=== PATIENT | male | born 1955 | race Caucasian/White ===

== ENCOUNTER 2018-07-09 21:16 | Emergency (ER) | payer MEDICARE ==
[2018-07-09] MEDS ORDERED: NA CHLORIDE 0.9% 1,000 ML ONE (22:09)
[2018-07-09] MEDS ORDERED: ALBUTEROL 2.5 MG/3 ML NEB SOL ONE (22:09)
[2018-07-09] MEDS ORDERED: SOD POLYSTYREN SUL 15 GM/60 ML UCUP ONE (22:09)
[2018-07-09 22:16] LABS: Urine Blood NEGATIVE (NEG); Urine Glucose TRACE (NEG); Urine Protein NEGATIVE (NEG); Urine Specific Gravity <1.005 (1.005-1.030); Urine pH 5.5 (5.0-7.0)
[2018-07-09 22:25] LABS: Absolute Lymphocytes (CBC) 1.5 K/uL (0.7-4.9); Absolute Monocytes 0.5 K/uL (0.1-1.3); Absolute Neutrophil 2.5 K/uL (1.8-8.0); Basophils % 0.5 % (0-1.3); Eosinophils % 4.3 % (0-4.4); Hematocrit 37.2 % (39.6-49.0); Lymphocytes % 31.4 % (15.3-44.8); MCH 32.9 pg (27.0-35.0); MPV 8.8 fL (7.6-11.3); Monocytes % 10.3 % (3.3-12.3); RBC Red Blood Cell Count 3.84 M/uL (4.33-5.43)
[2018-07-09 22:43] LABS: Protime INR 0.92
[2018-07-09 22:59] LABS: ALT/SGPT 19 U/L (12-78); AST/SGOT 18 U/L (15-37); Albumin 3.5 g/dL (3.4-5.0); Alkaline Phosphatase 53 U/L (45-117); BUN Blood Urea Nitrogen 13 mg/dL (7-18); Bicarbonate 23 mmol/L (21-32); Bilirubin Direct 0.2 mg/dL (0-0.2); Bilirubin Total 0.4 mg/dL (0.2-1.0); Glucose Level 136 mg/dL (74-106); Lipase 148 U/L (73-393); Magnesium 1.5 mg/dL (1.8-2.4); NT PRO-BNP 156 pg/mL (<125); Potassium 4.1 mmol/L (3.5-5.1); Protein, Total 7.2 g/dL (6.4-8.2); Sodium Level 136 mmol/L (136-145); Troponin (Emerg Dept Use Only) < 0.02 ng/mL (0.0-0.045)
--- NOTE | 2018-07-09 23:13 | EDPHYS ---
Physician Documentation [facility] Name: Yousuf Braxton Age: 62 yrs Sex: Male : 1955 Arrival Date: 07/09/2018 Time: 21:25 Bed 24 Private MD: ED Physician Romulo Aguilar HPI: 07/09 22:03 This 62 yrs old Male presents to ER via EMS with complaints of Elevated justice potassium. 22:03 told potassium was high. Onset: The symptoms/episode began/occurred just prior to [facility] arrival. Severity of symptoms: At their worst the symptoms were mild in the emergency department the symptoms are unchanged. The patient has not experienced similar symptoms in the past. Historical: - Allergies: : Codeine; kr2 - PMHx: : CAD; Diabetes - NIDDM; Hypertension; Myocardial infarction; Pancreatitis; kr2 - PSHx: : R ankle; heart stent x 3; Angioplasty; kr2 - Immunization history:: Adult Immunizations unknown. - Social history:: Smoking status: Patient/guardian denies using tobacco, Patient uses alcohol. - Ebola Screening: : No symptoms or risks identified at this time. - Family history:: not pertinent. ROS: 22:03 Constitutional: Negative for fever, chills, and weight loss, Eyes: Negative for injury, justice pain, redness, and discharge, ENT: Negative for injury, pain, and discharge, Neck: Negative for injury, pain, and swelling, Cardiovascular: Negative for chest pain, palpitations, and edema, Respiratory: Negative for shortness of breath, cough, wheezing, and pleuritic chest pain, Abdomen/GI: Negative for abdominal pain, nausea, vomiting, diarrhea, and constipation, Back: Negative for injury and pain, : Negative for injury, bleeding, discharge, and swelling, MS/Extremity: Negative for injury and deformity, Skin: Negative for injury, rash, and discoloration, Neuro: Negative for headache, weakness, numbness, tingling, and seizure, Psych: Negative for depression, anxiety, suicide ideation, homicidal ideation, and hallucinations, Allergy/Immunology: Negative for hives, rash, and allergies, Endocrine: Negative for neck swelling, polydipsia, polyuria, polyphagia, and marked weight changes, Hematologic/Lymphatic: Negative for swollen nodes, abnormal bleeding, and unusual bruising. Exam: 22:03 Constitutional: This is a well developed, well nourished patient who is awake, alert, justice and in no acute distress. Head/Face: Normocephalic, atraumatic. Eyes: Pupils equal round and reactive to light, extra-ocular motions intact. Lids and lashes normal. Conjunctiva and sclera are non-icteric and not injected. Cornea within normal limits. Periorbital areas with no swelling, redness, or edema. ENT: Nares patent. No nasal discharge, no septal abnormalities noted. Tympanic membranes are normal and external auditory canals are clear. Oropharynx with no redness, swelling, or masses, exudates, or evidence of obstruction, uvula midline. Mucous membranes moist. Neck: Trachea midline, no thyromegaly or masses palpated, and no cervical lymphadenopathy. Supple, full range of motion without nuchal rigidity, or vertebral point tenderness. No Meningismus. Chest/axilla: Normal chest wall appearance and motion. Nontender with no deformity. No lesions are appreciated. Cardiovascular: Regular rate and rhythm with a normal S1 and S2. No gallops, murmurs, or rubs. Normal PMI, no JVD. No pulse deficits. Respiratory: Lungs have equal breath sounds bilaterally, clear to auscultation and percussion. No rales, rhonchi or wheezes noted. No increased work of breathing, no retractions or nasal flaring. Abdomen/GI: Soft, non-tender, with normal bowel sounds. No distension or tympany. No guarding or rebound. No evidence of tenderness throughout. Back: No spinal tenderness. No costovertebral tenderness. Full range of motion. Male : Normal genitalia with no discharge or lesions. Skin: Warm, dry with normal turgor. Normal color with no rashes, no lesions, and no evidence of cellulitis. Vital Signs: 21:32 BP 137 / 72; Pulse 82; Resp 16; Temp 98.9; Pulse Ox 97% on R/A; Weight 90.72 kg; Height kr2 5 ft. 7 in. (170.18 cm); Pain 0/10; 23:19 BP 155 / 80; Pulse 71; Resp 17; Pulse Ox 96% on R/A; kr2 21:32 Body Mass Index 31.32 (90.72 kg, 170.18 cm) kr2 MDM: 21:45 Patient medically screened. [facility] 22:03 Data reviewed: vital signs, nurses notes, EMS record, lab test result(s), EKG, [facility] radiologic studies, plain films. 07/09 21:48 Order name: Basic Metabolic Panel; Complete Time: 23:[address] [facility] 07/09 21:48 Order name: CBC with Diff; Complete Time: 23:[address] [facility] 07/09 21:48 Order name: LFT's; Complete Time: 23:[address] [facility] 07/09 21:48 Order name: Magnesium; Complete Time: 23:[address] [facility] 07/09 21:48 Order name: NT PRO-BNP; Complete Time: 23:[address] [facility] 07/09 21:48 Order name: PT-INR; Complete Time: 23:[address] [facility] 07/09 21:48 Order name: Troponin (emerg Dept Use Only); Complete Time: 23:[address] [facility] 07/09 21:48 Order name: XRAY Chest (1 view) [facility] 07/09 21:48 Order name: Lipase; Complete Time: 23:[address] [facility] 07/09 22:12 Order name: Urine Dipstick--Ancillary (enter results); Complete Time: 23:11 [facility] 07/09 21:48 Order name: EKG; Complete Time: 21:[address] [facility] 07/09 21:48 Order name: Cardiac monitoring; Complete Time: 21:[address] [facility] 07/09 21:48 Order name: EKG - Nurse/Tech; Complete Time: 21:[address] [facility] 07/09 21:48 Order name: IV Saline Lock; Complete Time: 21:[address] [facility] 07/09 21:48 Order name: Labs collected and sent; Complete Time: 21:[address] [facility] 07/09 21:48 Order name: O2 Per Protocol; Complete Time: 21:[address] [facility] 07/09 21:48 Order name: O2 Sat Monitoring; Complete Time: 21:[address] [facility] Administered Medications: Discontinued: NS 0.9% 1000 ml IV at 125 ml/hr continuous 22:24 Drug: NS 0.9% 500 ml Route: IV; Rate: bolus; Site: right forearm; kr2 23:00 Follow up: Response: No adverse reaction; IV Status: Completed infusion kr2 22:24 Not Given (Patient Refused): Albuterol 5 mg Inhalation once kr2 23:12 Drug: NS 0.9% 1000 ml Route: IV; Rate: 125 ml/hr; Site: right forearm; kr2 07/10 00:26 Follow up: Response: No adverse reaction; IV Status: Order to discontinue infusion kr2 07/09 23:19 Drug: Magnesium Sulfate 1 grams Route: IVPB; Infused Over: 1 hrs; Site: right forearm; kr2 07/10 00:25 Follow up: Response: No adverse reaction; IV Status: Completed infusion kr2 07/09 23:55 Drug: morphine 4 mg Route: IVP; Site: right forearm; kr2 07/10 00:25 Follow up: Response: No adverse reaction; Pain is decreased kr2 07/09 23:55 Drug: Zofran 4 mg Route: IVP; Site: right forearm; kr2 07/10 00:25 Follow up: Response: No adverse reaction kr2 00:09 Not Given (Potassium level 4.1): Kayexalate 30 grams PO once kr2 Disposition: 07/09/18 23:12 Discharged to Home. Impression: Hypomagnesemia. - Condition is Stable. - Discharge Instructions: Hypomagnesemia. - Medication Reconciliation Form, Thank You Letter, Antibiotic Education, Prescription Opioid Use form. - Follow up: Private Physician; When: 2 - 3 days; Reason: Recheck today's complaints, Continuance of care, Re-evaluation by your physician. - Problem is new. - Symptoms have improved. Signatures: Dispatcher [employer] EDMS Romulo Aguilar MD MD cha Reaves, Karey, RN RN kr2 Corrections: (The following items were deleted from the chart) 00:29 07/09 23:12 07/09/2018 23:12 Discharged to Home. Impression: Hypomagnesemia. Condition kr2 is Stable. Forms are Medication Reconciliation Form, Thank You Letter, Antibiotic Education, Prescription Opioid Use. Follow up: Private Physician; When: 2 - 3 days; Reason: Recheck today's complaints, Continuance of care, Re-evaluation by your physician. Problem is new. Symptoms have improved. justice
--- NOTE | 2018-07-09 23:13 | ER ---
Nurse's Notes [facility] Name: Yousuf Braxton Age: 62 yrs Sex: Male : 1955 Arrival Date: 07/09/2018 Time: 21:25 Bed 24 Private MD: Diagnosis: Hypomagnesemia Presentation: 07/09 21:25 Presenting complaint: EMS states: [facility] potassium of 6.7, kr2 physician is Dr. Harris. He reports he had 6 beers today. Blood glucose 193. Transition of care: patient was not received from another setting of care. Onset of symptoms was July 09, 2018. Risk Assessment: Do you want to hurt yourself or someone else? Patient reports no desire to harm self or others. Initial Sepsis Screen: Does the patient meet any 2 criteria? No. Patient's initial sepsis screen is negative. Does the patient have a suspected source of infection? No. Patient's initial sepsis screen is negative. Care prior to arrival: IV initiated. 20 GA, in the right forearm. 21:25 Method Of Arrival: EMS: [facility] kr2 21:25 Acuity: JORDY 3 kr2 Triage Assessment: 21:32 General: Appears in no apparent distress. comfortable, Behavior is calm, cooperative, kr2 appropriate for age. Pain: Denies pain. Historical: - Allergies: 21:31 Codeine; kr2 - PMHx: 21:31 CAD; Diabetes - NIDDM; Hypertension; Myocardial infarction; Pancreatitis; kr2 - PSHx: 21:31 R ankle; heart stent x 3; Angioplasty; kr2 - Immunization history:: Adult Immunizations unknown. - Social history:: Smoking status: Patient/guardian denies using tobacco, Patient uses alcohol. - Ebola Screening: : No symptoms or risks identified at this time. - Family history:: not pertinent. Screenin:33 Abuse screen: Denies threats or abuse. Denies injuries from another. Nutritional kr2 screening: No deficits noted. Tuberculosis screening: No symptoms or risk factors identified. Fall Risk None identified. Assessment: 21:25 General: Appears in no apparent distress. comfortable, Behavior is calm, cooperative. kr2 Pain: Denies pain. Neuro: Level of Consciousness is awake, alert, obeys commands, Oriented to person, place, time, situation. Cardiovascular: Heart tones S1 S2 Patient's skin is warm and dry. Rhythm is sinus rhythm. Respiratory: Airway is patent Respiratory effort is even, unlabored, Respiratory pattern is regular, symmetrical. GI: Abdomen is flat, non-distended. : Urine is clear. EENT: Oral mucosa is moist. Derm: Skin is intact, is healthy with good turgor, Skin is pink, warm \T\ dry. Musculoskeletal: Circulation, motion, and sensation intact. Vital Signs: 21:32 BP 137 / 72; Pulse 82; Resp 16; Temp 98.9; Pulse Ox 97% on R/A; Weight 90.72 kg; Height kr2 5 ft. 7 in. (170.18 cm); Pain 0/10; 23:19 BP 155 / 80; Pulse 71; Resp 17; Pulse Ox 96% on R/A; kr2 21:32 Body Mass Index 31.32 (90.72 kg, 170.18 cm) kr2 ED Course: 21:25 Patient arrived in ED. kr2 21:25 Maintain EMS IV. Dressing intact. Good blood return noted. Site clean \T\ dry. Gauge \T\ kr 2 site: 20g right forearm. 21:27 Triage completed. kr2 21:33 Patient has correct armband on for positive identification. Bed in low position. Call kr2 light in reach. Side rails up X 1. churn drill operator on. Pulse ox on. NIBP on. Door closed. Warm blanket given. Head of bed elevated. 21:34 Arm band placed on. kr2 21:42 EKG done, by ED staff, reviewed by Romulo Aguilar MD. kr2 21:45 Romulo Aguilar MD is Attending Physician. [facility] 21:59 X-ray completed. Portable x-ray completed in exam room. Patient tolerated procedure ls3 well. 22:00 XRAY Chest (1 view) In Process Unspecified. EDMS 07/10 00:01 Christiane Romero, MUMTAZ is Primary Nurse. kr2 00:15 No provider procedures requiring assistance completed. IV discontinued, intact, kr2 bleeding controlled, No redness/swelling at site. Pressure dressing applied. Administered Medications: Discontinued: NS 0.9% 1000 ml IV at 125 ml/hr continuous 07/09 22:24 Drug: NS 0.9% 500 ml Route: IV; Rate: bolus; Site: right forearm; kr2 23:00 Follow up: Response: No adverse reaction; IV Status: Completed infusion kr2 22:24 Not Given (Patient Refused): Albuterol 5 mg Inhalation once kr2 23:12 Drug: NS 0.9% 1000 ml Route: IV; Rate: 125 ml/hr; Site: right forearm; kr2 07/10 00:26 Follow up: Response: No adverse reaction; IV Status: Order to discontinue infusion kr2 07/09 23:19 Drug: Magnesium Sulfate 1 grams Route: IVPB; Infused Over: 1 hrs; Site: right forearm; kr2 07/10 00:25 Follow up: Response: No adverse reaction; IV Status: Completed infusion kr2 07/09 23:55 Drug: morphine 4 mg Route: IVP; Site: right forearm; kr2 07/10 00:25 Follow up: Response: No adverse reaction; Pain is decreased kr2 07/09 23:55 Drug: Zofran 4 mg Route: IVP; Site: right forearm; kr2 07/10 00:25 Follow up: Response: No adverse reaction kr2 00:09 Not Given (Potassium level 4.1): Kayexalate 30 grams PO once kr2 Outcome: 07/09 23:12 Discharge ordered by . justice 10 00:15 Discharged to home ambulatory, with family. kr2 Condition: good Discharge instructions given to patient, Instructed on discharge instructions, follow up and referral plans. Demonstrated understanding of instructions, follow-up care. 00:29 Patient left the ED. kr2 Signatures: Dispatcher [employer] Romulo Luna MD MD cha Reaves, Karey, RN RN kr2 Peterson Harman ls3 Corrections: (The following items were deleted from the chart) 00:03 00:02 Response: No adverse reaction; IV Status: Completed infusion kr2 kr2
[2018-07-09] MEDS ORDERED: MAGNESIUM SULFATE 1 gm IVPB 1 GM/100 ML BAG IV ONE (23:20)
[2018-07-09] MEDS ORDERED: ONDANSETRON 4 MG/2 ML VIAL ONE (23:59)
[2018-07-09] MEDS ORDERED: MORPHINE 4 MG/ML SYR ONE (23:59)
[2018-07-10 00:33] VITALS: TEMP 98.9
[2018-07-10 00:34] VITALS: BP 155/80; O2SAT 96
--- NOTE | 2018-07-10 07:30 | RAD REPORT ---
EXAM DESCRIPTION: RAD - Chest Single View - 07/09/2018 10:00 pm CLINICAL HISTORY: Cough, hyperkalemia COMPARISON: September 2017 TECHNIQUE: AP portable chest image was obtained 2156 hours . FINDINGS: Lung volumes are low compared to the prior study. Interstitial markings are not substantia lly different when adjusting for differences in inspiration. No peripheral mass or consolidation. No significant failure, volume overload or pulmonary edema pattern. Heart and vasculature are normal. No measurable pleural effusion and no pneumothorax. No acute bony abnormality seen. No acute aortic fin dings suspected. IMPRESSION: Shallow inspiration film without acute cardiopulmonary finding. No significant change from comparison.
--- NOTE | 2018-07-10 08:13 | EKG ---
Test Date: 2018-07-09 Test Time: 21:37:48 Jewel Stringer: ALEXEI MEASUREMENT RESULTS: Intervals: Rate: 76 [place]: 140 QRSD: 98 QT: 364 QTc: 409 [place]: P: 67 [place]: 140 QRS: -17 T: 12 INTERPRETIVE STATEMENTS: Normal sinus rhythm Incomplete right bundle branch block Borderline ECG Compared to ECG 10/28/2017 11:18:03 Incomplete right bundle-branch block now present Left-axis deviation no longer present Electronically Signed On 07-10-18 08:12:09 CDT by Anibal Carver
== END 2018-07-10 00:29 | disposition home or self-care (01) ==
LOC: ER 21:16
DX: E83.42 Hypomagnesemia (principal); I10 Essential (primary) hypertension; I25.2 Old myocardial infarction; Z88.5 Allergy status to narcotic agent; Z95.818 Presence of other cardiac implants and grafts
CPT/HCPCS: 36415; 71045; 80048; 80076; 81003; 83690; 83735; 83880; 84484; 85025; 85610; 93005; 96361; 96365; 96375; 99284; J2405; J3475; J7030

== ENCOUNTER 2019-07-08 05:37 | Observation (INO) | payer MEDICARE ==
[2019-07-08 06:09] LABS: Absolute Lymphocytes (CBC) 0.7 K/uL (0.7-4.9); Basophils % 0.2 % (0-1.3); Hematocrit 38.9 % (39.6-49.0); Lymphocytes % 12.3 % (15.3-44.8); MPV 9.3 fL (7.6-11.3); RBC Red Blood Cell Count 3.98 M/uL (4.33-5.43)
[2019-07-08 06:21] LABS: Protime INR 0.87
[2019-07-08 06:29] LABS: ALT/SGPT 24 U/L (12-78); AST/SGOT 17 U/L (15-37); Albumin 3.7 g/dL (3.4-5.0); Alkaline Phosphatase 74 U/L (45-117); BUN Blood Urea Nitrogen 18 mg/dL (7-18); Bicarbonate 25 mmol/L (21-32); Bilirubin Total 0.5 mg/dL (0.2-1.0); Glucose Level 344 mg/dL (74-106); Lipase 175 U/L (73-393); Potassium 4.7 mmol/L (3.5-5.1); Protein, Total 7.6 g/dL (6.4-8.2); Sodium Level 140 mmol/L (136-145); Troponin (Emerg Dept Use Only) < 0.02 ng/mL (0.0-0.045)
--- NOTE | 2019-07-08 06:39 | ER ---
Nurse's Notes [facility] Name: Yousuf Braxton Age: 63 yrs Sex: Male : 1955 Arrival Date: 07/08/2019 Time: 05:41 Bed 17 Private MD: Diagnosis: Chest pain Presentation: 07/08 05:44 Presenting complaint: Patient states: he woke up from sleep with midsternal CP approx 2 aa1 hrs GREY WASHER. Reports hx of pancreatitis and states this pain feels similar. EMS gave ASA 81mg x 2 and Fentanyl 50mcg IVP x 2 GREY WASHER and pt reports pain has now resolved. Transition of care: patient was not received from another setting of care. Onset of symptoms was July 08, 2019. Risk Assessment: Do you want to hurt yourself or someone else? Patient reports no desire to harm self or others. Initial Sepsis Screen: Does the patient meet any 2 criteria? HR > 90 bpm. Does the patient have a suspected source of infection? No. Patient's initial sepsis screen is negative. Care prior to arrival: Medication(s) given: ASA, 81 mg, x 2, Fentanyl 100 msg IVP IV initiated. 20 GA, in the right forearm, Glucose check: 342. 05:44 Method Of Arrival: EMS: [facility] aa1 05:44 Acuity: JORDY 2 aa1 Historical: - Allergies: 05:47 Codeine; aa1 - Home Meds: 05:55 glipizide 10 mg Oral tab 2 times per day [Active]; simvastatin 40 mg Oral tab 1 tab aa1 once daily [Active]; atorvastatin 80 mg oral tab 1 tab once daily [Active]; lisinopril 5 mg Oral tab 1 tab once daily [Active]; omeprazole 20 mg Oral cpDR 1 cap 2 times per day [Active]; cyanocobalamin (vitamin B-12) 1,000 mcg oral tab daily [Active]; ranolazine oral oral 1 tab 2 times per day [Active]; metoprolol tartrate 50 mg Oral tab 1 tab 2 times per day [Active]; - PMHx: 05:47 CAD; Diabetes - NIDDM; Hypertension; Myocardial infarction; Pancreatitis; High aa1 Cholesterol; - PSHx: 05:47 R ankle; Angioplasty; heart stent x 3; aa1 - Immunization history:: Flu vaccine is up to date. - Social history:: Smoking status: Patient/guardian denies using tobacco. - Ebola Screening: : No symptoms or risks identified at this time. Screenin:48 Abuse screen: Denies threats or abuse. Denies injuries from another. Nutritional aa1 screening: No deficits noted. Tuberculosis screening: No symptoms or risk factors identified. Fall Risk IV access (20 points). Assessment: 05:48 General: Appears in no apparent distress. comfortable, Behavior is calm, cooperative, aa1 appropriate for age. Pain: Complains of pain in mid-sternal area Pain currently is 3 out of 10 on a pain scale. Pain began 2 hours ago. Neuro: Level of Consciousness is awake, alert, obeys commands, Oriented to person, place, time, situation, Moves all extremities. Speech is normal. Cardiovascular: Reports chest pain, Denies diaphoresis, lightheadedness, nausea, palpitations, shortness of breath, Heart tones S1 S2 present Capillary refill < 3 seconds Clubbing of nail beds is absent JVD is absent Rhythm is regular Chest pain is described as mild, quality is pressure, is located in substernal area began 2 hours prior to arrival episodes are continuous. Respiratory: Airway is patent Respiratory effort is even, unlabored, Respiratory pattern is regular, symmetrical. GI: No signs and/or symptoms were reported involving the gastrointestinal system. : No signs and/or symptoms were reported regarding the genitourinary system. EENT: No signs and/or symptoms were reported regarding the EENT system. Derm: Skin is intact, is healthy with good turgor, Skin is pink, warm \T\ dry. Musculoskeletal: Circulation, motion, and sensation intact. Capillary refill < 3 seconds. 06:52 Reassessment: Patient appears in no apparent distress at this time. Patient and/or aa1 family updated on plan of care and expected duration. Pain level reassessed. Patient is alert, oriented x 3, equal unlabored respirations, skin warm/dry/pink. Pt to be admitted; resting quietly. 08:01 Reassessment: repeat labs sent. ss 08:05 Reassessment: Dr. Carver at bedside to assess the patient. Patient denies pain at this ss time, respirations remain even and unlabored. Awaiting room assignment from pet house sitter. Vital Signs: 05:47 BP 128 / 72; Pulse 107; Resp 20; Temp 97.8; Pulse Ox 95% on R/A; Weight 88.45 kg; aa1 Height 5 ft. 7 in. (170.18 cm); Pain 3/10; 06:52 BP 109 / 75; Pulse 101; Resp 16; Pulse Ox 93% on R/A; Pain 0/10; aa1 05:47 Body Mass Index 30.54 (88.45 kg, 170.18 cm) aa1 ED Course: 05:41 Patient arrived in ED. ds1 05:44 Rohan Vazquez MD is Attending Physician. ps1 05:46 Triage completed. aa1 05:47 Arm band placed on right wrist. Patient placed in an exam room, on a stretcher. EKG aa1 completed in triage. Results shown to MD. 05:48 Patient has correct armband on for positive identification. Placed in gown. Bed in low aa1 position. Call light in reach. assembler liquid center on. Pulse ox on. NIBP on. 05:48 Initial lab(s) drawn, by ED staff, sent to lab. EKG done, by ED staff, reviewed by aa1 Rohan Vazquez MD. Maintain EMS IV. Dressing intact. Good blood return noted. Site clean \T\ dry. Gauge \T\ site: 20g R forearm. 06:09 CXR XRAY In Process Unspecified. EDMS 06:38 Virginia Romero MD is Hospitalizing Provider. ps1 06:59 Cyril Hendrickson is Primary Nurse. wh 08:20 EKG done, by network technician. at1 08:30 No provider procedures requiring assistance completed. Patient admitted, IV remains in place. 08:34 Primary Nurse role handed off by Cyril Hendrickson 08:34 Pat Nguyen, RN is Primary Nurse. Administered Medications: No medications were administered Outcome: 06:38 Decision to Hospitalize by Provider. ps1 08:50 Admitted to Med/surg accompanied by tech, via wheelchair, with chart. ch 08:50 Condition: stable 08:50 Instructed on the need for admit. 08:58 Patient left the ED. Signatures: Dispatcher [employer] EDMT Pat Nguyen, MUMTAZ RN Linda Mendez RN RN aa1 Yi Benjamin ds1 Maci Dixon RN RN Leti Werner, robotics systems engineer EKG Tat1 Cyril Hendrickson Phillip, MD MD ps1
--- NOTE | 2019-07-08 06:39 | EDPHYS ---
Physician Documentation [facility] Name: Yousuf Braxton Age: 63 yrs Sex: Male : 1955 Arrival Date: 07/08/2019 Time: 05:41 Bed 17 Private MD: ED Physician Rohan Vazquez HPI: 07/08 05:44 This 63 yrs old Male presents to ER via Unassigned with complaints of chest ps1 pain. 05:44 patient states that he had chest pain that woke him from sleeping. States that he is ps1 diabetic, htn, CAD post stent. Pain localized substernal with radiation to back. Pain is now gone s/p 100mcg fentanyl per EMS. Not associated with NV or diaphoresis. Thinks it may be pancreatitis 2/2 pain that is similar. Not a drinker, recently started trulicity. Historical: - Allergies: 05:47 Codeine; aa1 - Home Meds: 05:55 glipizide 10 mg Oral tab 2 times per day [Active]; simvastatin 40 mg Oral tab 1 tab aa1 once daily [Active]; atorvastatin 80 mg oral tab 1 tab once daily [Active]; lisinopril 5 mg Oral tab 1 tab once daily [Active]; omeprazole 20 mg Oral cpDR 1 cap 2 times per day [Active]; cyanocobalamin (vitamin B-12) 1,000 mcg oral tab daily [Active]; ranolazine oral oral 1 tab 2 times per day [Active]; metoprolol tartrate 50 mg Oral tab 1 tab 2 times per day [Active]; - PMHx: 05:47 CAD; Diabetes - NIDDM; Hypertension; Myocardial infarction; Pancreatitis; High aa1 Cholesterol; - PSHx: 05:47 R ankle; Angioplasty; heart stent x 3; aa1 - Immunization history:: Flu vaccine is up to date. - Social history:: Smoking status: Patient/guardian denies using tobacco. - Ebola Screening: : No symptoms or risks identified at this time. ROS: 05:44 Constitutional: Negative for fever, chills, and weight loss, Eyes: Negative for injury, ps1 pain, redness, and discharge, Respiratory: Negative for shortness of breath, cough, wheezing, and pleuritic chest pain, Abdomen/GI: Negative for abdominal pain, nausea, vomiting, diarrhea, and constipation, MS/Extremity: Negative for injury and deformity, Skin: Negative for injury, rash, and discoloration, Neuro: Negative for headache, weakness, numbness, tingling, and seizure. 05:44 Cardiovascular: Positive for chest pain. Exam: 05:44 Constitutional: This is a well developed, well nourished patient who is awake, alert, ps1 and in no acute distress. Head/Face: Normocephalic, atraumatic. Eyes: Pupils equal round and reactive to light, extra-ocular motions intact. Lids and lashes normal. Conjunctiva and sclera are non-icteric and not injected. ENT: Nares patent. No nasal discharge, no septal abnormalities noted. Tympanic membranes are normal and external auditory canals are clear. Oropharynx with no redness, swelling, or masses, exudates, or evidence of obstruction, uvula midline. Mucous membranes moist. Chest/axilla: Normal chest wall appearance and motion. Nontender with no deformity. No lesions are appreciated. Cardiovascular: Regular rate and rhythm. No gallops, murmurs, or rubs. Normal PMI, no JVD. No pulse deficits. Respiratory: Lungs have equal breath sounds bilaterally, clear to auscultation and percussion. No rales, rhonchi or wheezes noted. No increased work of breathing, no retractions or nasal flaring. Abdomen/GI: Soft, non-tender, with normal bowel sounds. No distension or tympany. No guarding or rebound. No evidence of tenderness throughout. Skin: Warm, dry with normal turgor. Normal color with no rashes, no lesions, and no evidence of cellulitis. MS/ Extremity: Pulses equal, no cyanosis. Neurovascular intact. Full, normal range of motion. Neuro: Awake and alert, GCS 15, oriented to person, place, time, and situation. Cranial nerves II-XII grossly intact. Sensory grossly intact. Vital Signs: 05:47 BP 128 / 72; Pulse 107; Resp 20; Temp 97.8; Pulse Ox 95% on R/A; Weight 88.45 kg; aa1 Height 5 ft. 7 in. (170.18 cm); Pain 3/10; 06:52 BP 109 / 75; Pulse 101; Resp 16; Pulse Ox 93% on R/A; Pain 0/10; aa1 05:47 Body Mass Index 30.54 (88.45 kg, 170.18 cm) aa MDM: 05:50 Patient medically screened. ps1 06:38 HEART Score: History: Slightly Suspicious (0), ECG: Non specific repolarization ps1 disturbance / LBTB / PM (1), Age: > 45 and < 65 years (1), Risk Factors: > or = 3 Risk factors for atherosclerotic disease (2), [Hypercholesterolemia] [Hypertension] [DM] [Obesity] Troponin: < or = 1 x Normal Limit (0), Total Score = 4. Data reviewed: vital signs, nurses notes, old medical records, lab test result(s), EKG, radiologic studies, and as a result, I will admit patient. 07/08 05:49 Order name: CBC with Diff; Complete Time: 06:35 ps1 07/08 05:49 Order name: CMP; Complete Time: 06:35 ps1 07/08 05:49 Order name: Troponin (emerg Dept Use Only); Complete Time: 06:35 ps1 07/08 05:49 Order name: Lipase; Complete Time: 06:35 ps1 07/08 05:49 Order name: PT-INR; Complete Time: 06:38 ps1 07/08 05:49 Order name: DD; Complete Time: 06:38 ps1 07/08 05:49 Order name: CXR XRAY [facility] 07/08 05:58 Order name: EKG; Complete Time: 05:58 aa1 07/08 07:03 Order name: Echo with Doppler [facility] 07/08 07:03 Order name: Lipid Profile [facility] 07/08 07:03 Order name: Lipid Profile [facility] 07/08 07:03 Order name: Troponin I [facility] 07/08 07:03 Order name: Troponin I [facility] 07/08 07:03 Order name: Troponin I [facility] 07/08 05:58 Order name: EKG - Nurse/Tech; Complete Time: 05:58 aa 07/08 07:03 Order name: CONS Physician Consult [facility] 07/08 07:03 Order name: Heart Healthy [facility] 07/08 07:03 Order name: EKG Electrocardiogram [facility] 07/08 07:03 Order name: EKG Electrocardiogram EDOR EC:47 Rate is 106 beats/min. Rhythm is regular. QRS [place] is Normal. [place] interval is normal. ps1 QRS interval is normal. QT interval is normal. No Q waves. T waves are Normal. No ST changes noted. Clinical impression: incomplete RBBB. Nonspecific ST wave abnormality. Not changed from previous a year ago. Administered Medications: No medications were administered Disposition: 07/08/19 06:38 Hospitalization ordered by Virginia Romero for Observation. Preliminary diagnosis is Chest pain. - Bed requested for Telemetry/MedSurg (observation). - Status is Observation. ch - Condition is Stable. - Problem is new. - Symptoms are unchanged. UTI on Admission? No Signatures: Dispatcher [employer] EDMS Pat Nguyen, RN RN ch Linda Mendez RN RN aa1 Rohan Vazquez MD MD ps1 Nicole Guerin Corrections: (The following items were deleted from the chart) 08:16 06:38 Hospitalization Ordered by Virginia Romero MD for Observation. Preliminary gm diagnosis is Chest pain. Bed requested for Telemetry/MedSurg (observation). Status is Observation. Condition is Stable. Problem is new. Symptoms are unchanged. UTI on Admission? No. ps1 08:58 08:16 07/08/2019 06:38 Hospitalization Ordered by Virginia Romero MD for Observation. Preliminary diagnosis is Chest pain. Bed requested for Telemetry/MedSurg (observation). Status is Observation. Condition is Stable. Problem is new. Symptoms are unchanged. UTI on Admission? No. gm
[2019-07-08] MEDS ORDERED: ACETAMINOPHEN 500 MG TAB PO PRN (06:59)
[2019-07-08] MEDS ORDERED: ALPRAZOLAM 0.25 MG TABLET PO PRN (06:59)
--- NOTE | 2019-07-08 07:58 | RAD REPORT ---
EXAM DESCRIPTION: RAD - Chest Single View - 07/08/2019 6:10 am CLINICAL HISTORY: CHEST PAIN Chest pain. COMPARISON: Chest Single View dated 07/09/2018; CHEST SINGLE VIEW dated 12/23/2011; CHEST SINGLE VIEW dated 12/11/2010; CHEST SINGLE VIEW dated 10/26/2009 FINDINGS: Portable technique limits examination quality. The lungs are grossly clear. The heart is mildly prominent in size. No displaced fractures. IMPRESSION: No acute intrathoracic process suspected.
[2019-07-08] MEDS ORDERED: NITROGLYCERIN 0.4 MG/TAB SL PRN (08:13)
[2019-07-08] MEDS ORDERED: METOPROLOL TAR 50 MG TAB PO SCH (09:00)
[2019-07-08] MEDS ORDERED: ENOXAPARIN 40 MG/0.4 ML SQ SCH (09:00)
[2019-07-08 09:14] VITALS: BMI 29.6
[2019-07-08] MEDS: CLOPIDOGREL 75 MG TABLET PO SCH (09:25)
[2019-07-08] MEDS: ASPIRIN EC 81 MG TAB PO SCH (09:26)
[2019-07-08] MEDS: MORPHINE 4 MG/ML SYR IV PRN ×3 (09:26→20:14)
--- NOTE | 2019-07-08 09:41 | P.HP ---
Certification for Inpatient Patient admitted to: Observation With expected LOS: <2 Midnights Patient will require the following post-hospital care: None Practitioner: I am a practitioner with admitting privileges, knowledge of patient current condition, hospital course, and medical plan of care. Services: Services provided to patient in accordance with Admission requirements found in Title 42 Section 412.3 of the Code of Federal Regulations Patient History Date of Service: 07/08/19 Reason for admission: CHEST PAIN RULE OUT ACUTE CORONARY SYNDROME History of Present Illness: PATIENT IS A 63-YEAR-OLD GENTLEMAN WHO CAME TO THE HOSPITAL WITH CHEST DISCOMFORT. PAIN WAS IN THE STERNAL REGION. PATIENT WAS EVALUATED IN THE ER AND GIVEN PAIN MEDICATION. PATIENT'S SYMPTOMS HAVE PRETTY MUCH RESOLVED. I REVIEWED PATIENT'S CHARTING HE HAD A CARDIAC CATHETERIZATION IN SEPTEMBER OF 2017. PATIENT HAD A HISTORY OF 2 PRIOR STENTS AND THESE WERE IN PLACE AND NOT THROMBOSED. PATIENT HAS SEVERE CORONARY ARTERY DISEASE. HE DID NOT MEET CRITERIA FOR ANY SURGICAL INTERVENTION. PATIENT WAS MEDICALLY MANAGED. HE HAS BEEN ON RANEXA FOR HIS ANGINA. HOWEVER, HE DID HAVE RECURRING CHEST PAIN. INITIALLY HE FELT LIKE IT WAS RELATED TO PANCREATITIS BUT HIS LIPASE IS NORMAL. HE HAS NOT HAD ANY EPIGASTRIC TENDERNESS ON EXAM. PATIENT WILL BE ADMITTED TO THE HOSPITAL TO BE RULED OUT FOR ACUTE CORONARY SYNDROME. WILL GET CARDIOLOGY CONSULTATION. ANTICIPATE DISCHARGE HOME LATER THIS EVENING OR IN THE MORNING. Allergies codeine [Codeine] Allergy (Verified 10/03/17 09:34) Hives/Rash - Past Medical/Surgical History -: CORONARY ARTERY DISEASE -: TYPE 2 DIABETES -: HYPERTENSION -: CARDIAC CATHETERIZATION WITH A HISTORY OF 2 PRIOR STENTS PLACED - Social History Smoking Status: Former smoker Alcohol use: No CD- Drugs: No Review of Systems 10-point ROS is otherwise unremarkable Physical Examination - Vital Signs Temperature: 97.0 F Blood Pressure: 136/71 Pulse: 96 Respirations: 16 Pulse Ox (%): 96 - Physical Exam General: Alert, In no apparent distress, Oriented x3 HEENT: Atraumatic, PERRLA, Mucous membr. moist/pink, EOMI, Sclerae nonicteric Neck: Supple, 2+ carotid pulse no bruit, No LAD, Without JVD or thyroid abnormality Respiratory: Clear to auscultation bilaterally, Normal air movement Cardiovascular: Regular rate/rhythm, Normal S1 S2 Gastrointestinal: Normal bowel sounds, Soft and benign, Non-distended, No tenderness Musculoskeletal: No clubbing, No swelling, No tenderness Integumentary: No rashes Neurological: Normal gait, Normal speech, Normal strength at 5/5 x4 extr, Normal tone, Sensation intact, Cranial nerves 3-12 intact, Normal affect Lymphatics: No axilla or inguinal lymphadenopathy - Studies Laboratory Data (last 24 hrs) 07/08/19 05:48: PT 10.3, INR 0.87 07/08/19 05:48: Sodium 140, Potassium 4.7, BUN 18, Creatinine 1.44 H, Glucose 344 H, Total Bilirubin 0.5, AST 17, ALT 24, Alkaline Phosphatase 74, Lipase 175 07/08/19 05:48: WBC 5.8, Hgb 13.5 L, Hct 38.9 L, Plt Count 174 Assessment & Plan - Problems (Diagnosis) (1) Chest pain, rule out acute myocardial infarction Current Visit: Yes Status: Acute (2) Coronary artery disease Current Visit: Yes Status: Acute (3) History of intravascular stent placement Current Visit: Yes Status: Acute (4) Type 2 diabetes mellitus Current Visit: Yes Status: Acute (5) History of hypertension Current Visit: Yes Status: Acute - Plan 1. SERIAL TROPONINS AND EKG 2. CARDIOLOGY CONSULTATION 3. ECHOCARDIOGRAM 4. ANTI-PLATELET THERAPY, ANTI COAGULATION, BETA-JUDITH, STATIN, RANEXA AND MAY NEED TO ADD ISOSORBIDE LONG PATIENT DOES NOT BECOME HYPOTENSIVE 5. IV MORPHINE FOR PAIN 6. NITRO P.R.N. Discharge Plan: Home Plan to discharge in: Greater than 2 days - Advance Directives Does patient have a Living Will: No Does patient have a Durable POA for Healthcare: No - Code Status/Comfort Care Code Status Assessed: Yes Code Status: Full Code Critical Care: No Time Spent Managing PTS Care (In Minutes): 45
--- NOTE | 2019-07-08 11:36 | EKG ---
Test Date: 2019-07-08 Test Time: 08:01:15 Process Manager: TAISHA MEASUREMENT RESULTS: Intervals: Rate: 97 CO: 152 QRSD: 90 QT: 346 QTc: 439 [place]: P: 64 CO: 152 QRS: -34 T: 22 INTERPRETIVE STATEMENTS: Normal sinus rhythm Left axis deviation Nonspecific ST abnormality Abnormal ECG Compared to ECG 07/09/2018 21:37:48 Left-axis deviation now present ST (T wave) deviation now present Incomplete right bundle-branch block no longer present Electronically Signed On 07-08-19 11:35:53 CDT by Anibal Carver
--- NOTE | 2019-07-08 11:37 | EKG ---
Test Date: 2019-07-08 Test Time: 05:45:51 Car Audio Installer: MEASUREMENT RESULTS: Intervals: Rate: 106 AK: 142 QRSD: 94 QT: 332 QTc: 441 [place]: P: 66 AK: 142 QRS: -33 T: 25 INTERPRETIVE STATEMENTS: Sinus tachycardia Left axis deviation Incomplete right bundle branch block Nonspecific ST and T wave abnormality Abnormal ECG Compared to ECG 07/09/2018 21:37:48 Left-axis deviation now present ST (T wave) deviation now present Sinus rhythm no longer present Electronically Signed On 07-08-19 11:36:16 CDT by Anibal Carver
[2019-07-08] MEDS ORDERED: D50W 25 GM/50 ML SYRINGE IV PRN (11:38)
[2019-07-08] MEDS ORDERED: GLUCAGON 1 MG/VIAL IM PRN (11:38)
--- NOTE | 2019-07-08 12:08 | CON ---
History Of Present Illness: Mr. Braxton is 63. He is known to have inoperable CAD. He has had 2 sten ts. He last had a catheterization roughly a year ago and found that all of his target vessels are 1 mm in diameter or less and he would be unable to go through bypass surgery or other stents or treatin g it medically. This morning, he awakened with chest pain. He took several of his usual medications in addition, seemed to go away when he was in the ambulance ride to the hospital. We do not have a report of what he received by the ambulance. He does not say they sprayed anything under his tongue. Home Medicines: Glipizide, simvastatin, atorvastatin probably a mistake, lisinopril, omeprazole, cya nocobalamin, ranolazine 1000 b.i.d., metoprolol 50 b.i.d., and he is supposed to have nitroglycerin, but did not use nitroglycerin. Physical Examination: General: He is obese, alert, oriented, pleasant, not in distress. Vital Signs: Blood pressure 128/72, pulse 80. HEENT: Normal. Lungs: Clear. Heart: Within normal limits. EKG; nonspecific ST abnormality. The troponin level is less than 0.02. Impression: Mr. Braxton had angina. He is not a candidate for we could expect of cardiac cath to do a ny good, so we need to increase the amount of beta blockers, make sure he has oral nitrates use on a p.r.n. basis, observe him overnight, and if he has no more angina, he could be discharged home tomorr ow. CINDA Voice ID: [id number] Report ID: [id number]
[2019-07-08] MEDS: INSULIN -REGULAR HUMAN 50 UNIT/0.5 ML ML SQ SCH ×3 (12:11→20:12)
[2019-07-08 12:31] LABS: Urine Appearance CLEAR; Urine Bilirubin NEGATIVE (NEG); Urine Blood NEGATIVE (NEG); Urine Color YELLOW; Urine Glucose 3+ (NEG); Urine Protein NEGATIVE (NEG); Urine Specific Gravity >=1.030 (1.005-1.030)
[2019-07-08 12:32] LABS: Urine Microscopic Reflex NO UMIC
--- NOTE | 2019-07-08 16:33 | ECHO ---
HEIGHT: 5 ft 7 in WEIGHT: 189 lb 4.8 oz DATE OF STUDY: 07/08/[address]: Virginia Romero MD 2-DIMENSIONAL: YES M.MODE: YES DOPPLER: YES COLOR FLOW: YES TDS: PORTABLE: DEFINITY: BUBBLE STUDY: DIAGNOSIS: CHEST PAIN/ HISTORY OF CAD CARDIAC HISTORY: CATHERIZATION: NO SURGERY: NO PROSTHETIC VALVE: NO PACEMAKER: NO MEASUREMENTS (cm) DIASTOLIC (NORMALS) SYSTOLIC (NORMALS) IVSd 1.2 (0.6-1.2) LA Diam 3.8 (1.9-4.0) LVEF 60% LVIDd 3.7 (3.5-5.7) LVIDs 2.6 (2.0-3.5) %FS 31% LVPWd 1.2 (0.6-1.2) Ao Diam 2.9 (2.0-3.7) 2 DIMENSIONAL ASSESSMENT: RIGHT ATRIUM: NORMAL LEFT ATRIUM: NORMAL RIGHT VENTRICLE: NORMAL LEFT VENTRICLE: NORMAL TRICUSPID VALVE: NORMAL MITRAL VALVE: NORMAL PULMONIC VALVE: NORMAL AORTIC VALVE: NORMAL PERICARDIAL EFFUSION: NONE AORTIC ROOT: NORMAL LEFT VENTRICULAR WALL MOTION: NORMAL DOPPLER/COLOR FLOW: NORMAL COMMENTS: NORMAL TWO DIMENSIONAL ECHOCARDIOGRAM WITH DOPPLER. TECHNOLOGIST: BASIL MUNOZ
[2019-07-08] MEDS: METOPROLOL XL 50 MG TAB PO SCH (17:06)
[2019-07-08 23:50] VITALS: O2SAT 93
[2019-07-09] MEDS ORDERED: LORATADINE 10 MG TAB PO ONE
[2019-07-09] MEDS: MORPHINE 4 MG/ML SYR IV PRN ×3 (00:05→08:52)
[2019-07-09] MEDS: METOPROLOL XL 50 MG TAB PO SCH (05:24)
[2019-07-09 06:42] LABS: Absolute Lymphocytes (CBC) 0.8 K/uL (0.7-4.9); Basophils % 0.3 % (0-1.3); Hematocrit 36.9 % (39.6-49.0); Lymphocytes % 10.8 % (15.3-44.8); MPV 9.5 fL (7.6-11.3); RBC Red Blood Cell Count 3.79 M/uL (4.33-5.43)
[2019-07-09 06:55] LABS: Magnesium 1.7 mg/dL (1.8-2.4); Phosphorus 2.2 mg/dL (2.5-4.9); Potassium 4.5 mmol/L (3.5-5.1); Troponin I 0.16 ng/mL (0.0-0.045)
[2019-07-09] MEDS ORDERED: predniSONE 20 MG TAB PO ONE (08:00)
[2019-07-09] MEDS: INSULIN -REGULAR HUMAN 50 UNIT/0.5 ML ML SQ SCH (08:44)
[2019-07-09 08:48] VITALS: BP 136/71; TEMP 97.2
[2019-07-09] MEDS: CLOPIDOGREL 75 MG TABLET PO SCH (08:48)
[2019-07-09] MEDS: ASPIRIN EC 81 MG TAB PO SCH (08:48)
--- NOTE | 2019-07-10 02:20 | P.DS ---
Discharge Date: 07/09/19 Disposition: ROUTINE DISCHARGE Discharge Condition: GOOD Reason for Admission: CHEST PAIN RULE OUT ACUTE CORONARY SYNDROME Consultations: Cardiology - Problems (1) Chest pain, rule out acute myocardial infarction Status: Acute (2) Coronary artery disease Status: Acute (3) History of intravascular stent placement Status: Acute (4) Type 2 diabetes mellitus Status: Acute (5) History of hypertension Status: Acute Brief History of Present Illness: PATIENT IS A 63-YEAR-OLD GENTLEMAN WHO CAME TO THE HOSPITAL WITH CHEST DISCOMFORT. PAIN WAS IN THE STERNAL REGION. PATIENT WAS EVALUATED IN THE ER AND GIVEN PAIN MEDICATION. PATIENT'S SYMPTOMS HAVE PRETTY MUCH RESOLVED. I REVIEWED PATIENT'S CHARTING HE HAD A CARDIAC CATHETERIZATION IN SEPTEMBER OF 2017. PATIENT HAD A HISTORY OF 2 PRIOR STENTS AND THESE WERE IN PLACE AND NOT THROMBOSED. PATIENT HAS SEVERE CORONARY ARTERY DISEASE. HE DID NOT MEET CRITERIA FOR ANY SURGICAL INTERVENTION. PATIENT WAS MEDICALLY MANAGED. HE HAS BEEN ON RANEXA FOR HIS ANGINA. HOWEVER, HE DID HAVE RECURRING CHEST PAIN. INITIALLY HE FELT LIKE IT WAS RELATED TO PANCREATITIS BUT HIS LIPASE IS NORMAL. HE HAS NOT HAD ANY EPIGASTRIC TENDERNESS ON EXAM. PATIENT WILL BE ADMITTED TO THE HOSPITAL TO BE RULED OUT FOR ACUTE CORONARY SYNDROME. WILL GET CARDIOLOGY CONSULTATION. ANTICIPATE DISCHARGE HOME LATER THIS EVENING OR IN THE MORNING. Hospital Course: Patient had extensive workup including troponins and echocardiogram. There was no sustained Joanne abnormality. Patient's was seen by machine brush maker and at this time plan is to discharge him home with outpatient follow-up in 1-2 weeks. Follow with PCP as well. Patient's main symptom at the time of discharge is low back pain from lying in the bed. Will go ahead and give him a few days of a low-dose prednisone and hopefully this will help alleviate his symptoms. At this time patient is stable for discharge home. Vital Signs/Physical Exam: Temp Pulse Resp BP Pulse Ox 97.2 F 71 18 136/71 95 07/09/19 08:00 07/09/19 08:00 07/09/19 08:52 07/09/19 08:00 07/09/19 08:52 General: Alert, In no apparent distress, Oriented x3 Laboratory Data at Discharge: WBC 7.4 K/uL (4.3-10.9) D 07/09/19 06:25 Hgb 12.8 g/dL (13.6-17.9) L 10/11/19 06:25 Hct 36.9 % (39.6-49.0) L 07/09/19 06:25 Plt Count 149 K/uL (152-406) L 07/09/19 06:25 PT 10.3 SECONDS (9.5-12.5) 07/08/19 05:48 INR 0.87 07/08/19 05:48 Sodium 138 mmol/L (136-145) 07/09/19 06:25 Potassium 4.5 mmol/L (3.5-5.1) 07/09/19 06:25 BUN 23 mg/dL (7-18) H 07/09/19 06:25 Creatinine 1.25 mg/dL (0.55-1.3) 07/09/19 06:25 Glucose 261 mg/dL (74-106) H 07/09/19 06:25 Phosphorus 2.2 mg/dL (2.5-4.9) L 07/09/19 06:25 Magnesium 1.7 mg/dL (1.8-2.4) L 07/09/19 06:25 Total Bilirubin 0.5 mg/dL (0.2-1.0) 07/08/19 05:48 AST 17 U/L (15-37) 07/08/19 05:48 ALT 24 U/L (12-78) 07/08/19 05:48 Alkaline Phosphatase 74 U/L (45-117) 07/08/19 05:48 Troponin I 0.16 ng/mL (0.0-0.045) H 07/09/19 06:25 Triglycerides 179 mg/dL (<150) H 07/08/19 07:53 Cholesterol 179 mg/dL (<200) 07/08/19 07:53 HDL Cholesterol 70 mg/dL (40-60) H 07/08/19 07:53 Cholesterol/HDL Ratio 2.56 07/08/19 07:53 Lipase 175 U/L (73-393) 07/08/19 05:48 Home Medications: ALPRAZolam [Alprazolam] 1 tab PO BIDP PRN 07/08/19 Atorvastatin Calcium [Lipitor] 80 mg PO BEDTIME 07/08/19 Cyanocobalamin [Vitamin B-12*] 1,000 mcg PO DAILY 07/08/19 Glipizide [Glucotrol] 10 mg PO DAILY 07/08/19 Hydrocodone Bit/Acetaminophen [Hydrocodon-Acetaminophn 10-325] 1 tab PO Q4HP PRN 07/08/19 Lisinopril [Prinivil*] 10 mg PO DAILY 07/08/19 Multivit-Min/FA/Lycopen/Lutein [Complete Multivitamin Tab] 1 tab PO DAILY Omeprazole 20 mg PO BID 07/08/19 Ranolazine [Ranolazine ER] 500 mg PO BID 07/08/19 glipiZIDE [Glucotrol*] 5 mg PO BEDTIME 07/08/19 Metoprolol Succinate [Toprol Xl*] 50 mg PO BID 6AM 6PM #60 tab 07/09/19 Nitroglycerin [Nitrostat] 0.4 mg SL Q5M #100 tab 07/09/19 Prednisone [Deltasone] 20 mg PO BID #6 tablet 07/09/19 New Medications: Metoprolol Succinate [Toprol Xl*] 50 mg PO BID 6AM 6PM #60 tab Nitroglycerin [Nitrostat] 0.4 mg SL Q5M #100 tab Prednisone [Deltasone] 20 mg PO BID #6 tablet Patient Discharge Instructions: OK TO DC IV AND DC HOME if okay with Cardiology. FOLLOW-UP WITH PRIMARY CARE PROVIDER IN 1-2 WEEKS. FOLLOW-UP WITH CARDIOLOGY IN 1-2 WEEKS. RETURN TO THE ER IF symptoms worsen. CALL or TEXT DR. MCALLISTER AT [phone] IF ANY QUESTIONS REGARDING HOSPITAL STAY. PLEASE CALL THE FLOOR AT [phone] IF ANY MEDICATION OR NURSING QUESTIONS. Diet: AHA Activity: Fall precautions Followup: Juan J Harris MD [ACTIVE - CAN ADMIT] - 1-2 Weeks (Call to schedule an appointment ) Anibal Carver MD [ACTIVE - CAN ADMIT] - 1-2 Weeks (machine brush maker- call to schedule an appointment ) Time spent managing pt's care (in minutes): 20
== END 2019-07-09 09:30 | disposition home or self-care (01) ==
LOC: ER 05:37 → ERHOLD 06:59 → 4TH 08:43
PROVIDERS: ADMIT Hospitalist; ATTEND Hospitalist
DX: R07.9 Chest pain, unspecified (principal); I25.10 Atherosclerotic heart disease of native coronary artery without angina pectoris; Z95.5 Presence of coronary angioplasty implant and graft; E11.9 Type 2 diabetes mellitus without complications; M54.5 Low back pain
CPT/HCPCS: 93005 ×2; 93306; 85025 ×2; 80048; 36415 ×2; 83735; 84100; 85610; 80061; 82962 ×5; 85379; 81003; 84484 ×4; 83690; 80053; 71045; 99285; J1650; G0378 ×3; J7512

== ENCOUNTER 2020-02-22 16:44 | Observation (INO) | payer MEDICARE, OTHER ==
--- OUTSIDE RECORDS SUMMARY | 2020-02-22 16:46 | XMS REPORT | Clinical Summary ---
:1955 Author Organization [facility] Address [address] [place] [address] Care Team Providers Name Role Phone Asked, Pcp Primary Care Provider Unavailable Allergies Active Allergy Reactions Severity Noted Date Comments Codeine Other (See Comments) 08/15/2016 Medications Medication Sig Dispensed Refills Start Date End Date Status atorvastatin (LIPITOR) Take 80 mg by 0 Active 80 MG tablet mouth. carboxymethylcellulose-g Apply 0.05 mg to 0 Active lycern 0.5-0.9 % drops eye. glipiZIDE (GLUCOTROL) 10 Take 10 mg by 0 Active MG tablet mouth. lisinopril (PRINIVIL) 5 Take 5 mg by 0 Active mg tablet mouth. omeprazole (PriLOSEC) 20 Take 20 mg by 0 Active MG capsule mouth. ranolazine (RANEXA) Take 500 mg by 0 Active 1,000 mg 12 hr tablet mouth. sildenafil (VIAGRA) 100 Take 50 mg by 0 Active MG tablet mouth. ALPRAZolam (XANAX) 2 MG Take 1 tablet by 0 6 Active tablet mouth. aspirin (ECOTRIN) 81 MG Take 81 mg by 0 Active enteric coated tablet mouth. clotrimazole (LOTRIMIN) Apply topically. 0 Active 1 % cream HYDROcodone-acetaminophe Take 1 tablet by 0 08/07/20 16 Active n (NORCO) 10-325 mg per mouth. tablet metoprolol succinate XL Take 50 mg by 0 Active (TOPROL-XL) 50 mg 24 hr mouth. tablet dulaglutide 0.75 mg/0.5 Inject under the 0 Active mL pen injector skin. multivitamin with Take 1 tablet by 0 Active minerals tablet mouth daily. cetirizine (ZyrTEC) 10 Take 10 mg by 0 Active MG tablet mouth daily. cyanocobalamin 100 MCG Take 100 mcg by 0 Active tablet mouth daily. Active Problems Not on file Encounters Date Type Specialty Care Team Description 09/13/2019 Office Visit Cardiology Jordy Bob, Coronary ar ruthann disease of [place] artery of [place] heart with stable angina pectoris (HCC) (Primary Dx); MD LUU (arterios clerotic cardiovascular disease); Hypercholestero lemia; Type 2 diabetes mellitus without complication, without long-term current use of insulin (HCC) 08/09/2019 Transcribe Orders Cardiology Jordy Bob ASCVD (arteriosclerotic MD cardiovascular disease) (Primary Dx) after 02/21/2019 Social History Tobacco Use Types Packs/Day Years Used Date Never Assessed Sex Assigned at Date Recorded Not on file Job Start Date Occupation Industry Not on file Not on file Not on file Travel History Travel Start Travel End No recent travel history available. Last Filed Vital Signs Vital Sign Reading Time Taken Comments Blood Pressure 144/69 09/13/2019 2:28 PM [employer]IV[employer]OR[employer] Pulse 72 09/13/2019 2:28 PM [employer] Temperature - - Respiratory Rate - - Oxygen Saturation - - Inhaled Oxygen Concentration - - Weight 90.7 kg (200 lb) 09/13/2019 2:28 PM DELIV[employer]CY[employer] Height - - Body Mass Index - - Plan of Treatment Health Maintenance Due Date Last Done Comments DIABETIC RETINAL EYE EXAM 1955 DIABETIC FOOT EXAM 1965 URINE MICROALBUMIN 1965 COLONOSCOPY SCREENING 2005 SHINGLES VACCINES (#1) 2005 INFLUENZA VACCINE 04/29/2020 Procedures Procedure Name Priority Date/Time Associated Diagnosis Comme nts ECG 12-LEAD Routine 09/13/2019 2:31 PM ASCVD (arteriosclerot ic Results for this DELIVERY [employer] cardiovascular disease) proc edure are in the results section. after 02/21/2019 Results ECG 12 lead (09/13/2019 2:31 PM DELIVERY MOT[employer]CY[employer]) Pathologist Sig nature Ventricular rate 75 [facility] Atrial rate 75 [facility] NV interval 138 [facility] QRSD interval 96 [facility] QT interval 376 [facility] QTC interval 419 [facility] P axis 1 72 [facility] QRS axis 1 -22 [facility] T wave axis 10 [facility] EKG impression Normal sinus [facility] rhythm-normal EKG-No previous ECGs available-Electronicall y Signed By Jordy Bob MD ([id number]) on 09/13/2019 3:08:37 PM Specimen Narrative Performed At This result has an attachment that is no t available. Performing Organization Address City/State/Zipcode Phone Number [facility] [address] [place] [address] after 02/21/2019 Advance Directives For more information, please contact: [phone] Type Date Recorded Patient Seal Mixer Explanati on Advance Directives, Living Will and Medical Power of Blender/Braze Applicator
--- OUTSIDE RECORDS SUMMARY | 2020-02-22 16:47 | XMS REPORT ---
:1955 Author Organization [facility] t Address [address] [place] [address] Care Team Providers Name Role Phone Asked, Pcp Primary Care Physician Unavailable Paulino JOYCE Attending Clinician Payers Payer Name Policy Type Policy Number Effective Date Expiration Date S ruba [facility] MEDICAREAARP xxxxxxxxx 2018 Thayne MEDICARE COMPLETE 00:00:[address] [id number] Problems This patient has no known problems. Allergies, Adverse Reactions, Alerts Allergy Allergy Status Severity Reaction(s) Onset Inactive Treating Comm ents Source Name Type Date Date Clinician Nusrat Prieto Active Other (See 2015-09 Walt grace ty to Comments) 10-15 [facility] adverse 00:00: st reaction 00 s to drug Social History Social Habit Start Date Stop Date Quantity Comments Source Sex Assigned At Walt Chisholmist Medications Ordered Filled Start Stop Current Ordering Indication Dosage Frequency Signature Comments Components Source Medication Medication Date Date Medication? Clinician (SIG) Name Name multivitami 2018-09 Yes 1{tbl} QD Take 1 [place] with 2-16 tablet by Methodi minerals 14:35: mouth st tablet 06 daily. cetirizine 2018-09 Yes 10mg QD Take 10 mg [place] (ZyrTEC) 10 2-16 by mouth Meth maury MG tablet 14:35: daily. st 06 cyanocobala 2018-09 Yes 100ug QD Take 100 [place] min 100 MCG 2-16 mcg by Method i tablet 14:35: mouth st 06 daily. atorvastati 2018-09 Yes 80mg Take 80 mg Herrera n (LIPITOR) 2-16 by mouth. Met hodi 80 MG 14:34: st tablet 06 carboxymeth 2018-09 Yes .05mg Apply 0.05 Herrera ylcellulose 2-16 mg to eye. Me thodi -glycern 14:34: st 0.5-0.9 % 06 drops glipiZIDE 2018-09 Yes 10mg Take 10 mg [place] (GLUCOTROL) 2-16 by mouth. Met hodi 10 MG 14:34: st tablet 06 lisinopril 2018-09 Yes 5mg Take 5 mg [place] (PRINIVIL) 2-16 by mouth. Meth maury 5 mg tablet 14:34: st 06 omeprazole 2018-09 Yes 20mg Take 20 mg [place] (PriLOSEC) 2-16 by mouth. Meth maury 20 MG 14:34: st capsule 06 ranolazine 2018-09 Yes 500mg Take 500 [place] (RANEXA) 2-16 mg by Methodi 1,000 mg 12 14:34: mouth. st hr tablet 06 sildenafil 2018-09 Yes 50mg Take 50 mg [place] (VIAGRA) 2-16 by mouth. Method i 100 MG 14:34: st tablet 06 aspirin 2018-09 Yes 81mg Take 81 mg [place] (ECOTRIN) 2-16 by mouth. Metho di 81 MG 14:34: st enteric 06 coated tablet clotrimazol 2018-09 Yes Apply [place] e 2-16 topically. Methodi (LOTRIMIN) 14:34: st 1 % cream 06 metoprolol 2018-09 Yes 50mg Take 50 mg [place] succinate 2-16 by mouth. Metho di XL 14:34: st (TOPROL-XL) 06 50 mg 24 hr tablet dulaglutide 2018-09 Yes Inject [place] 0.75 mg/0.5 2-16 under the Met peymani mL pen 14:34: skin. st injector 06 ALPRAZolam 2015-09 Yes 1{tbl} Take 1 [place] ston (XANAX) 2 1-25 tablet by Metho di MG tablet 00:00: mouth. st 00 HYDROcodone 2015-09 Yes 1{tbl} Take 1 [place] -acetaminop 1-09 tablet by Met mary hen (NORCO) 00:00: mouth. st 10-325 mg 00 per tablet Vital Signs Vital Name Observation Time Observation Value Comments Source Systolic blood 2019-09-13 14:28:00 144 mm[Hg] [place] [facility] pressure Diastolic blood 2019-09-13 14:28:00 69 mm[Hg] [place] [facility] pressure Heart rate 2019-09-13 14:28:00 72 /min Javier Haynes Body weight 2019-09-13 14:28:00 90.719 kg Javier Haynes Procedures Procedure Date / Time Performed Performing Clinician Sourc e ECG 12-LEAD 2019-09-13 14:31:49 Jordy Bob Plan of Care Planned Activity Planned Date Details Comments Source Future Scheduled 2020-04-29 INFLUENZA VACCINE [place] [facility] Test 00:00:00 [code = INFLUENZA VACCINE] Future Scheduled 2005 COLONOSCOPY SCREENING [place] [facility] Test 00:00:00 [code = COLONOSCOPY SCREENING] Future Scheduled 2005 SHINGLES VACCINES (#1) [place] [facility] Test 00:00:00 [code = SHINGLES VACCINES (#1)] Future Scheduled 1965 DIABETIC FOOT EXAM [place] [facility] Test 00:00:00 [code = DIABETIC FOOT EXAM] Future Scheduled 1965 URINE MICROALBUMIN [place] [facility] Test 00:00:00 [code = URINE MICROALBUMIN] Future Scheduled 1955 DIABETIC RETINAL EYE [facility] Test 00:00:00 EXAM [code = DIABETIC RETINAL EYE EXAM] Results Test Description Test Time Test Comments Results Result Comments Source ECG 12 lead 2019-09-13 15:08:38 Test Item Value Reference Range Interpretation Comme nts Ventricular rate (test code = 253) 75 Atrial rate (test code = 255) 75 WA interval (test code = 266) 138 QRSD interval (test code = 260) 96 QT interval (test code = 264) 376 QTC interval (test code = 265) 419 P axis 1 (test code = 267) 72 QRS axis 1 (test code = 268) -22 T wave axis (test code = 270) 10 EKG impression (test code = 273) Normal sinus rhythm-normal EKG-No previous ECGs available- Javier Haynes
[2020-02-22] MEDS ORDERED: MORPHINE 4 MG/ML SYR ONE (17:28)
[2020-02-22 17:35] LABS: Protime INR 0.92
[2020-02-22 17:37] LABS: Absolute Lymphocytes (CBC) 1.1 K/uL (0.7-4.9); Basophils % 0.4 % (0-1.3); Hematocrit 41.5 % (39.6-49.0); Lymphocytes % 20.7 % (15.3-44.8); MPV 9.4 fL (7.6-11.3); RBC Red Blood Cell Count 4.32 M/uL (4.33-5.43)
--- NOTE | 2020-02-22 17:52 | RAD REPORT ---
EXAM DESCRIPTION: RAD - Chest Single View - 02/22/2020 5:34 pm CLINICAL HISTORY: CHEST PAIN Chest pain. COMPARISON: Chest Single View dated 07/08/2019; Chest Single View dated 07/09/2018; CHEST SINGLE VIE W dated 12/23/2011; CHEST SINGLE VIEW dated 12/11/2010 FINDINGS: Portable technique limits examination quality. The lungs are grossly clear. The heart is normal in size. No displaced fractures. IMPRESSION: No acute intrathoracic process suspected.
[2020-02-22 18:18] LABS: BUN Blood Urea Nitrogen 11 mg/dL (7-18); Bicarbonate 25 mmol/L (21-32); Glucose Level 259 mg/dL (74-106); Lipase 163 U/L (73-393); Magnesium 1.5 mg/dL (1.8-2.4); NT PRO-BNP 69 pg/mL (<125); Potassium 4.4 mmol/L (3.5-5.1); Sodium Level 135 mmol/L (136-145); Troponin (Emerg Dept Use Only) < 0.02 ng/mL (0.0-0.045)
[2020-02-22] MEDS ORDERED: ACETAMINOPHEN 500 MG TAB PO PRN (20:56)
[2020-02-22] MEDS ORDERED: NITROGLYCERIN 0.4 MG/TAB SL PRN (20:56)
[2020-02-22] MEDS ORDERED: ATORVASTATIN 80 MG TAB PO SCH (21:00)
[2020-02-22] MEDS ORDERED: LORAZEPAM 1 MG TABLET PO SCH (21:00)
[2020-02-22] MEDS: INSULIN -REGULAR HUMAN 50 UNIT/0.5 ML ML SQ SCH ×2 (21:00→23:00)
[2020-02-22] MEDS: MORPHINE 4 MG/ML SYR IV PRN (21:34)
[2020-02-22] MEDS: METOPROLOL TAR 50 MG TAB PO SCH (21:53)
[2020-02-22 22:14] VITALS: BMI 31.8
--- NOTE | 2020-02-22 22:58 | HP ---
Date of Admission: 02/22/2020 Chief Complaint: Chest pain. Primary Care Physician: YIN Cook. Consultants: Dr. Angulo, Cardiology. History Of Present Illness: Patient is a 64-year-old male with past medical history of coronary artery disease status post stent approximately 12 years ago, hypertension, hyperlipidemia, diabetes [id number] who comes in to the hospital with chest pain. Patient states this is the same chest pain that he had when he had a cardiac stent placed. Patient's pain is constant moderate progressively worsening in the left side, nonradiating, not associated with any nausea, vomiting, shortness of breath. Patient's pain started when he was replacing the stove and eased up after he stopped working. In the ER, his workup revealed negative troponin. EKG showed some nonspecific changes. Patient was then referred for admission. When seen in the ER, he was awake, alert, oriented x3, in some mild distress. Past Medical History: Coronary artery disease status post stent, diabetes mellitus type 2, essential hypertension. Past Surgical History: Cardiac catheterization with 2 stents placed in balloon angioplasty. Allergies: TO CODEINE. Medications: List reviewed. Social History: Patient is a former smoker. Denies any alcohol use or illicit drug use. Family History: Patient denies any premature coronary artery disease in the family. Review of Systems: Ten-point system reviewed, negative except as per HPI. Physical Examination: Vital signs: Temperature 98.6 heart rate 103 blood pressure 142/93 respirations 18 and O2 saturation 97% on room air. General: Awake, alert, oriented x3 obese male in some mild distress, ill- appearing male. HEENT: Normocephalic, atraumatic. PERRLA, EOMI. Moist mucous membranes. Oropharynx is clear. Conjunctivae anicteric. Neck: Supple. No JVD. Trachea midline. CV: S1, S2. Regular rate and rhythm. Peripheral pulses present. Respiratory: Moving air well bilaterally. No wheezing or stridor. Gastrointestinal: Abdomen is soft, nontender, nondistended. Positive bowel sounds. No guarding or rigidity. Extremities: No clubbing, cyanosis, or edema. No calf tenderness. Neuro: Cranial nerves 2 through 12 intact grossly. No focal neurological deficit. Speech is normal Skin: No rashes. Normal skin turgor. Psych: Mood is okay. Affect is full. Insight and judgment are good. Laboratory Data: Sodium 135, potassium 4.4, chloride 102, CO2 of 25, BUN 11, creatinine 1.6, glucose 259, calcium 8.8, magnesium 1.5. Troponin less than 0.02. Lipase 163. INR 0.92. WBC 5.1, H and H 13.9 and 41.5, platelets 154. Chest x-ray shows no acute intrathoracic process. Assessment: A 64-year-old male with 1. Unstable angina. Patient has history of coronary artery disease and stents. Initial cardiac enzymes negative. No acute changes on EKG, nonspecific. Cardiology will be consulted. We will start on chest pain guidelines, SHARON inhibitor, beta-karl, aspirin and statin. We will obtain echocardiogram, morphine and nitroglycerin p.r.n. for pain. 2. Essential hypertension. Resume home medications as appropriate. 3. Hyperlipidemia. Continue statin. 4. Diabetes mellitus, type 2, bfx-pzieziq-triodksvg with hyperglycemia. We will continue sliding scale insulin. Monitor blood glucose levels. 5. Coronary artery disease status post stent, [place] artery, [place] heart with angina. Continue aspirin. 6. Obesity. 7. Gastroesophageal reflux disease. Continue PPI. 8. Anxiety. Continue with Ativan at night. 9. Chronic pain syndrome secondary to chronic back pain. We will continue with [place] p.r.n. Plan: Admit patient to Med-Surg, [facility] as observation. We will follow up with Cardiology recommendations. DANILO Voice ID: [id number] MTDD
[2020-02-23] MEDS: MORPHINE 4 MG/ML SYR IV PRN ×3 (01:30→09:32)
[2020-02-23 06:33] LABS: Absolute Lymphocytes (CBC) 1.8 K/uL (0.7-4.9); Basophils % 0.6 % (0-1.3); Hematocrit 40.7 % (39.6-49.0); Lymphocytes % 37.8 % (15.3-44.8); MPV 9.2 fL (7.6-11.3); RBC Red Blood Cell Count 4.27 M/uL (4.33-5.43)
[2020-02-23 07:27] LABS: Troponin I 0.1 ng/mL (0.0-0.045)
[2020-02-23] MEDS: INSULIN -REGULAR HUMAN 50 UNIT/0.5 ML ML SQ SCH ×2 (07:30→12:19)
[2020-02-23] MEDS: METOPROLOL TAR 50 MG TAB PO SCH (08:10)
[2020-02-23 08:42] VITALS: O2SAT 96
[2020-02-23 08:55] VITALS: TEMP 96.9
[2020-02-23] MEDS ORDERED: ASPIRIN EC 81 MG TAB PO SCH (09:00)
[2020-02-23] MEDS ORDERED: lisinopriL 10 MG TAB PO SCH (09:00)
[2020-02-23] MEDS ORDERED: ENOXAPARIN 40 MG/0.4 ML SQ SCH (09:00)
--- NOTE | 2020-02-23 12:52 | EKG ---
Test Date: 2020-02-22 Test Time: 17:03:33 Health Social Work Professor: LATONYA MEASUREMENT RESULTS: Intervals: Rate: 92 OK: 132 QRSD: 118 QT: 358 QTc: 442 [place]: P: 69 OK: 132 QRS: -46 T: 18 INTERPRETIVE STATEMENTS: Normal sinus rhythm Pulmonary disease pattern Right bundle branch block Left anterior fascicular block Bifascicular block Abnormal ECG Compared to ECG 07/08/2019 08:01:15 Right bundle-branch block now present Left anterior fascicular block now present Bifascicular block now present Left-axis deviation no longer present ST (T wave) deviation no longer present Electronically Signed On 02-23-20 12:50:29 CDT by Gordon Angulo
[2020-02-23 12:55] VITALS: BP 134/68
[2020-02-23] MEDS ORDERED: MORPHINE 2 MG/ML SYR IV PRN (14:00)
--- NOTE | 2020-02-23 14:28 | CON ---
Date of Consultation: 02/23/2020 Reason For Consultation: Chest pain. History Of Present Illness: Mr. Braxton is a 64-year-old white male. He is known to us from previous office visits and hospitalizations. He has severe inoperable coronary artery disease as of a cathete rization in September of 2017. At that time, he had a normal echocardiogram. He has a history of diab etes, dyslipidemia, and hypertension. He came into the hospital with a blood pressure of 192/89 and substernal chest pain that is relieved now. His pain lasted about 20-30 minutes . Physical Examination: Chest: Clear to auscultation and percussion. Cardiac: Regular rhythm and rate. No murmurs, gallops, or rubs. Abdomen: Benign. Extremities: Revealed no clubbing, cyanosis, or edema. Impression And Plan: Angina secondary to chronic coronary artery disease that is inoperable as of 2017. I do not feel the need to do another catheterization on him. He has ruled out for an [place]. There is no evidence of congestive heart failure. He has an echocardiogram that is pending. I think we need to continue his medical therapy. I suggest we double up his Ranexa to a 1000 mg b.i.d . as well. He has medication for his diabetes and dyslipidemia and keep an eye on his blo od pressure. Continue low-salt diet, low-cholesterol diet . BLAYNE/BRUNA Voice ID: [id number] Report ID: [id number]
--- NOTE | 2020-02-23 14:55 | ECHO ---
HEIGHT: 5 ft 6 in WEIGHT: 197 lb 8 oz DATE OF STUDY: 02/23/[address]: Cong Frederick MD 2-DIMENSIONAL: YES M.MODE: YES DOPPLER: YES COLOR FLOW: YES TDS: NO PORTABLE: NO DEFINITY: NO BUBBLE STUDY: NO DIAGNOSIS: CHEST PAIN CARDIAC HISTORY: CATHERIZATION: YES SURGERY: NO PROSTHETIC VALVE: NO PACEMAKER: NO MEASUREMENTS (cm) DIASTOLIC (NORMALS) SYSTOLIC (NORMALS) IVSd 1.0 (0.6-1.2) LA Diam 3.7 (1.9-4.0) LVEF 59% LVIDd 4.2 (3.5-5.7) LVIDs 2.9 (2.0-3.5) %FS 31% LVPWd 1.2 (0.6-1.2) Ao Diam 2.9 (2.0-3.7) 2 DIMENSIONAL ASSESSMENT: RIGHT ATRIUM: NORMAL LEFT ATRIUM: NORMAL RIGHT VENTRICLE: NORMAL LEFT VENTRICLE: NORMAL TRICUSPID VALVE: NORMAL MITRAL VALVE: NORMAL PULMONIC VALVE: NORMAL AORTIC VALVE: SCLEROSIS PERICARDIAL EFFUSION: NONE AORTIC ROOT: NORMAL LEFT VENTRICULAR WALL MOTION: NORMAL. DOPPLER/COLOR FLOW: MILD TRICUSPID REGURGITATION. COMMENTS: NORMAL LEFT VENTRICULAR SIZE AND FUNCTION. MILD TRICUSPID REGURGITATION - NORMAL RIGHT VENTRICULAR SYSTOLIC PRESSURE. AORTIC SCLEROSIS WITH NO STENOSIS. NO WALL MOTION ABNORMALITY. TECHNOLOGIST: BASIL WAGONER
[2020-02-23] MEDS ORDERED: GLIPIZIDE S.A. 5 MG TAB PO SCH (17:00)
--- NOTE | 2020-02-24 00:26 | DS ---
Date of Discharge: 02/23/2020 Consultants: Dr. Angulo with Cardiology. Procedures: None. Discharge Diagnoses: 1.Unstable angina, improved. 2.Essential hypertension, stable. 3.Mixed hyperlipidemia, statin. 4.Diabetes mellitus type 2 tog-dggcykx-xtfgsosqs with hyperglycemia, stable. 5.Coronary artery disease status post stent [place] artery and [place] heart without angina, stable. 6.Obesity, BMI 31. 7.Gastroesophageal reflux disease, on PPI. 8.Generalized anxiety disorder, on benzodiazepines. 9.Chronic pain syndrome on narcotics. Hospital Course: Patient is a 64-year-old male with past medical history of heart disease, diabetes, hypertension, comes into the hospital with chest pain. Patient has had previous stents placed. His initial cardiac enzymes were negative. Repeat levels were 0.10 and then 0.10. Lipid panel was with in normal limits. Patient's pain resolved. He was not a candidate for intervention. Cardiology was consulted. Dr. Angulo stated that the patient has very small arteries and was considered inoperabl e. He is recommended to double up his Ranexa and metoprolol dose. Echocardiogram was also done. Felipe beth was then cleared for discharge and was sent home in a stable condition. Activity: As tolerated. Medications: As per medication reconciliation list. Followup: Follow up with primary care physician in 2-3 days. Follow up with computing architect, Dr. Eveline madera, in 2 weeks. Return to ER for worsening condition. Diet: Diabetic. Activity: As tolerated. Physical Examination: General: Awake, alert, oriented, no acute distress obese male. CV: S1, S2. Respiratory: Moving air well bilaterally. Abdomen: Abdomen is soft, nontender, nondistended. Positive bowel sounds. Extremities: No clubbing, cyanosis, edema. Neurologic: Nonfocal. SA/MODL Voice ID: [id number] Report ID: [id number]
[2020-02-24] MEDS ORDERED: PANTOPRAZOLE 40MG TABLET PO SCH (09:00)
[2020-02-24] MEDS ORDERED: HOME MED 1 EA UNK (Omeprazole [Omeprazole] 20 MG) PO SCH (09:00)
--- NOTE | 2020-02-28 13:35 | ER ---
Nurse's Notes [facility] [place], [place] Name: Yousuf Braxton Age: 64 yrs Sex: Male : 1955 Arrival Date: 02/22/2020 Time: 16:45 Bed 23 Private MD: Diagnosis: Chest pain, unspecified Presentation: 02/21 16:48 Chief complaint: Patient states: was changing out his stove top, felt pain like heart iw burn, took tums , pain didn't go away, took two nitro and pain went away, took aspirin, pain came back and took one more nitro, started about 90 minutes ago, c/o midsternal chest pain, felt like pressure and burning, hx of [place], with balloon and stent placement with Dr. Carver. Coronavirus screen: Proceed with normal triage. Patient denies a cough. Patient denies shortness of breath or difficulty breathing. Patient denies measured and/or subjective temperature greater than 100.4F prior to today's visit. Patient denies travel on a cruise ship or to a country the [facility] currently lists as an affected area. Patient denies contact with known and/or suspected case of COVID-19. Ebola Screen: Patient negative for fever greater than or equal to 101.5 degrees Fahrenheit, and additional compatible Ebola Virus Disease symptoms Patient denies exposure to infectious person. Patient denies travel to an Ebola-affected area in the 21 days before illness onset. No symptoms or risks identified at this time. Initial Sepsis Screen: Does the patient meet any 2 criteria? No. Patient's initial sepsis screen is negative. Does the patient have a suspected source of infection? No. Patient's initial sepsis screen is negative. Risk Assessment: Do you want to hurt yourself or someone else? Patient reports no desire to harm self or others. Onset of symptoms was February 22, 2020. 16:48 Method Of Arrival: Ambulatory iw 16:48 Acuity: JORDY 2 iw Historical: - Allergies: 16:54 Codeine; iw - Home Meds: 16:54 atorvastatin 80 mg Oral tab 1 tab once daily [Active]; cyanocobalamin (vitamin B-12) iw 1,000 mcg Oral tab daily [Active]; glipizide 10 mg Oral tab 2 times per day [Active]; lisinopril 5 mg Oral tab 1 tab once daily [Active]; omeprazole 20 mg Oral cpDR 1 cap 2 times per day [Active]; ranolazine Oral 1 tab 2 times per day [Active]; simvastatin 40 mg Oral tab 1 tab once daily [Active]; Trulicity subcutaneous subcutaneous once wkly [Active]; - PMHx: 16:54 Diabetes - NIDDM; CAD; Hypertension; High Cholesterol; Myocardial infarction; iw Pancreatitis; - PSHx: 16:54 R ankle; Angioplasty; heart stent x 3; iw - Immunization history:: Adult Immunizations up to date. - Social history:: Smoking status: Patient/guardian denies using tobacco, the patient reports quitting approximately 8 years ago. - Family history:: not pertinent. - Hospitalizations: : No recent hospitalization is reported. Screenin:20 Abuse screen: Denies threats or abuse. Nutritional screening: No deficits noted. ah Tuberculosis screening: No symptoms or risk factors identified. Fall Risk None identified. Assessment: 17:00 General: Behavior is cooperative, Reports fatigue for. General:. Pain: Complains of ah pain in mid-sternal area Pain does not radiate. Quality of pain is described as heavy, Pain began 2 hours ago. Neuro: Oriented to person, place, time, situation. Cardiovascular: Heart tones S1 S2 present Capillary refill < 3 seconds Patient's skin is warm and dry. Chest pain is described as mild, quality is heaviness, is located in anterior began 2 hours prior to arrival. Respiratory: Airway is patent Respiratory effort is even, unlabored, Respiratory pattern is regular, symmetrical. GI: Bowel sounds present X 4 quads. : No signs and/or symptoms were reported regarding the genitourinary system. EENT: No signs and/or symptoms were reported regarding the EENT system. Derm: No signs and/or symptoms reported regarding the dermatologic system. Musculoskeletal: No signs and/or symptoms reported regarding the musculoskeletal system. 17:47 Reassessment: Hospitalist in to see pt at this time. 18:25 Reassessment: Patient and/or family updated on plan of care and expected duration. Pain ah level reassessed. Pt states that morphine helped his chest pain but his back is still a bit uncomfortable. No needs voiced at this time. Patient states feeling better. 19:00 Reassessment: Pt sitting in bed eating a sandwich at this time. No needs voiced at this ah time. Vital Signs: 16:48 BP 142 / 93; Pulse 103; Resp 18 S; Temp 98.6; Pulse Ox 97% on R/A; Weight 90.72 kg; iw Height 5 ft. 6 in. (167.64 cm); Pain 6/10; 17:30 BP 160 / 71; Pulse 97; Resp 18; Pulse Ox 95% ; ah 18:30 BP 153 / 89; Pulse 77; Resp 18; Pulse Ox 97% ; ah 19:00 BP 160 / 91; Pulse 81; Resp 18; Pulse Ox 97% ; ah 19:30 BP 123 / 69; Pulse 85; Resp 16; Pulse Ox 98% ; ah 16:48 Body Mass Index 32.28 (90.72 kg, 167.64 cm) ED Course: 16:45 Patient arrived in ED. as 16:52 Triage completed. iw 16:55 Jaguar Cardona MD is Attending Physician. rn 17:19 Jo Ann Carver RN is Primary Nurse. 17:34 XRAY Chest (1 view) In Process Unspecified. EDMS 17:38 Cong Frederick MD is Hospitalizing Provider. rn 19:20 Patient has correct armband on for positive identification. Bed in low position. Call light in reach. Side rails up X2. school bus monitor on. Pulse ox on. NIBP on. 19:30 No provider procedures requiring assistance completed. Patient admitted, IV remains in ah place. Patient maintains SpO2 saturation greater than 95% on room air. Administered Medications: 17:25 Drug: morphine 4 mg Route: IVP; Site: right antecubital; 22:06 Follow up: Response: No adverse reaction Outcome: 17:38 Decision to Hospitalize by Provider. rn 19:30 Admitted to [facility] accompanied by tech, via wheelchair, room 211, with chart, Report called to receiving nurse 19:30 Condition: stable 19:30 Instructed on the need for admit. 22:04 Patient left the ED. sg Signatures: Dispatcher [employer] EDMS Hoang Pandey RN RN Rachel Rebollar Irene, RN RN Jaguar Cardona MD MD rn Harris, Amy, RN RN
--- NOTE | 2020-02-28 13:35 | EDPHYS ---
Physician Documentation [facility] Name: Yousuf Braxton Age: 64 yrs Sex: Male : 1955 Arrival Date: 02/22/2020 Time: 16:45 Bed 23 Private MD: ED Physician Jaguar Cardona HPI: 02/21 17:32 This 64 yrs old Male presents to ER via Ambulatory with complaints of Chest rn Pain. 17:32 The patient or guardian reports chest pain that is located primarily in the substernal rn area. Onset: just prior to arrival. The pain does not radiate. Associated signs and symptoms: Pertinent positives: shortness of breath, Pertinent negatives: abdominal pain, cough, diaphoresis, vomiting. The chest pain is described as a heaviness, a pressure. Duration: The patient or guardian reports multiple episodes. Modifying factors: The symptoms are alleviated by ASA, 81mg NTG. Severity of pain: At its worst the pain was moderate in the emergency department the pain has improved. The patient has experienced similar episodes in the past. Reports changing out stovetop, began to have chest pain, relieved with nitro, came back, took baby aspirin and nitro again with improvement, now only 4/10 pain, states identical to [address] Carver placed a stent. Reports rarely has had to use nitro in past. . Historical: - Allergies: 16:54 Codeine; iw - Home Meds: 16:54 atorvastatin 80 mg Oral tab 1 tab once daily [Active]; cyanocobalamin (vitamin B-12) iw 1,000 mcg Oral tab daily [Active]; glipizide 10 mg Oral tab 2 times per day [Active]; lisinopril 5 mg Oral tab 1 tab once daily [Active]; omeprazole 20 mg Oral cpDR 1 cap 2 times per day [Active]; ranolazine Oral 1 tab 2 times per day [Active]; simvastatin 40 mg Oral tab 1 tab once daily [Active]; Trulicity subcutaneous subcutaneous once wkly [Active]; - PMHx: 16:54 Diabetes - NIDDM; CAD; Hypertension; High Cholesterol; Myocardial infarction; iw Pancreatitis; - PSHx: 16:54 R ankle; Angioplasty; heart stent x 3; iw - Immunization history:: Adult Immunizations up to date. - Social history:: Smoking status: Patient/guardian denies using tobacco, the patient reports quitting approximately 8 years ago. - Family history:: not pertinent. - Hospitalizations: : No recent hospitalization is reported. ROS: 17:32 Constitutional: Negative for fever, chills, and weight loss, Eyes: Negative for injury, rn pain, redness, and discharge, Neck: Negative for injury, pain, and swelling, Cardiovascular: Negative for palpitations, and edema, Respiratory: Negative for cough, wheezing, and pleuritic chest pain, Abdomen/GI: Negative for abdominal pain, nausea, vomiting, diarrhea, and constipation, MS/Extremity: Negative for injury and deformity, Skin: Negative for injury, rash, and discoloration, Neuro: Negative for headache, weakness, numbness, tingling, and seizure. Exam: 17:32 Constitutional: This is a well developed, well nourished patient who is awake, alert, rn and in no acute distress. Head/Face: Normocephalic, atraumatic. Cardiovascular: Tachycardic, regular Respiratory: No increased work of breathing, no retractions or nasal flaring. Abdomen/GI: soft, non-tender Skin: Warm, dry MS/ Extremity: Pulses equal, no cyanosis. Neurovascular intact. Full, normal range of motion. Equal circumference. Neuro: Awake and alert, GCS 15, oriented to person, place, time, and situation. Cranial nerves II-XII grossly intact. Motor strength 5/5 in all extremities. Sensory grossly intact. Vital Signs: 16:48 BP 142 / 93; Pulse 103; Resp 18 S; Temp 98.6; Pulse Ox 97% on R/A; Weight 90.72 kg; iw Height 5 ft. 6 in. (167.64 cm); Pain 6/10; 17:30 BP 160 / 71; Pulse 97; Resp 18; Pulse Ox 95% ; ah 18:30 BP 153 / 89; Pulse 77; Resp 18; Pulse Ox 97% ; ah 19:00 BP 160 / 91; Pulse 81; Resp 18; Pulse Ox 97% ; ah 19:30 BP 123 / 69; Pulse 85; Resp 16; Pulse Ox 98% ; ah 16:48 Body Mass Index 32.28 (90.72 kg, 167.64 cm) iw MDM: 16:55 Patient medically screened. rn 17:37 Differential diagnosis: acute myocardial infarction, acute pericarditis, coronary rn artery disease chest wall pain, costochondritis, esophagitis, gastritis, gastroesophageal reflux disease (GERD), pancreatitis, pericarditis, pleurisy, pneumothorax, stable angina, unstable angina. Data reviewed: vital signs, nurses notes, EKG, and as a result, I will admit patient. Counseling: I had a detailed discussion with the patient and/or guardian regarding: the historical points, exam findings, and any diagnostic results supporting the discharge/admit diagnosis, the need for further work-up and treatment in the hospital. Response to treatment: the patient's symptoms have markedly improved after treatment, and as a result, I will admit patient. Admission orders: after a detailed discussion of the patient's condition and case, the admit orders are written by me. ED course: ADmitted to Dr. Frederick for chest pain, has CAD and identical presentation in past with stent placement. States this feels different from pancreatitis he has had in past, is relieved with nitro. . 02/21 17:01 Order name: Basic Metabolic Panel 02/21 17:01 Order name: CBC with Diff; Complete Time: 17:45 02/21 17:01 Order name: Magnesium 02/21 17:01 Order name: NT PRO-BNP 02/21 17:01 Order name: PT-INR; Complete Time: 17:51 02/21 17:01 Order name: Troponin (emerg Dept Use Only) 02/21 17:01 Order name: XRAY Chest (1 view); Complete Time: 18:00 02/21 17:01 Order name: EKG; Complete Time: 17:02 02/21 17:01 Order name: Cardiac monitoring; Complete Time: 17:35 02/21 17:01 Order name: EKG - Nurse/Tech; Complete Time: 17:35 02/21 17:37 Order name: Add On-Lab eb 02/21 17:41 Order name: Lipase [facility] 02/21 21:43 Order name: Glucose, Ancillary Testing [facility] 02/21 17:01 Order name: IV Saline Lock; Complete Time: 17:36 02/21 17:01 Order name: Labs collected and sent; Complete Time: 17:37 02/21 17:01 Order name: O2 Per Protocol; Complete Time: 17:37 02/21 17:01 Order name: O2 Sat Monitoring; Complete Time: 17:38 rn Administered Medications: 17:25 Drug: morphine 4 mg Route: IVP; Site: right antecubital; 22:06 Follow up: Response: No adverse reaction Disposition: 02/22/20 17:38 Hospitalization ordered by Cong Frederick for Observation. Preliminary diagnosis is Chest pain, unspecified. - Bed requested for Telemetry/MedSurg (observation). - Status is Observation. sg - Condition is Stable. - Problem is new. - Symptoms have improved. Signatures: Dispatcher [employer] EDMS Laurel Long RN MUMTAZ dw Hoang Pandey RN RN sg Melany Leung RN MUMTAZ Jaguar Cardona MD MD rn Harris, Amy RN RN Corrections: (The following items were deleted from the chart) 19:18 17:38 Hospitalization Ordered by Cong Frederick MD for Observation. Preliminary diagnosis dw is Chest pain, unspecified. Bed requested for Telemetry/MedSurg (observation). Status is Observation. Condition is Stable. Problem is new. Symptoms have improved. rn 19:27 19:18 02/22/2020 17:38 Hospitalization Ordered by Cong Frederick MD for Observation. dw Preliminary diagnosis is Chest pain, unspecified. Bed requested for Telemetry/MedSurg (observation). Status is Observation. Condition is Stable. Problem is new. Symptoms have improved. dw 22:04 19:27 02/22/2020 17:38 Hospitalization Ordered by Cong Frederick MD for Observation. sg Preliminary diagnosis is Chest pain, unspecified. Bed requested for Telemetry/MedSurg (observation). Status is Observation. Condition is Stable. Problem is new. Symptoms have improved. dw
== END 2020-02-23 13:53 | disposition home or self-care (01) ==
LOC: ER 16:44 → ERHOLD 18:20 → 2ND 20:18
PROVIDERS: ADMIT Family Medicine; ATTEND Family Medicine
DX: I25.110 Atherosclerotic heart disease of native coronary artery with unstable angina pectoris (principal); I10 Essential (primary) hypertension; E11.65 Type 2 diabetes mellitus with hyperglycemia; E66.9 Obesity, unspecified; K21.9 Gastro-esophageal reflux disease without esophagitis; F41.9 Anxiety disorder, unspecified; G89.4 Chronic pain syndrome; E78.2 Mixed hyperlipidemia; Z68.31 Body mass index [BMI] 31.0-31.9, adult; Z87.891 Personal history of nicotine dependence
CPT/HCPCS: 93005; 93306; 85025 ×2; 80048 ×2; 36415; 83735; 85610; 80061; 82947 ×4; 84484 ×3; 83690; 83880; 71045; 94760 ×2; 96374; 99285; G0378 ×3; J1650

== ENCOUNTER 2020-05-18 19:11 | Inpatient (IN) | payer MEDICARE, OTHER ==
--- OUTSIDE RECORDS SUMMARY | 2020-05-18 19:13 | XMS REPORT | Clinical Summary ---
:1955 Author Organization [facility] Address [address] [place] [address] Care Team Providers Name Role Phone Asked, [...] Jordy Bob, Coronary ar ruthann disease of elem artery of elem heart with stable angina pectoris (HCC) (Primary Dx); MD LUU (arterios clerotic cardiovascular disease); Hypercholestero lemia; Type 2 diabetes mellitus without complication, without long-term current use of insulin (HCC) 08/09/2019 Transcribe Orders Cardiology Jordy Bob ASCVD (arteriosclerotic MD cardiovascular disease) (Primary Dx) after 05/18/2019 Social History Tobacco Use Types Packs/Day Years Used Date Never Assessed Sex Assigned at Date Recorded Not on file Job Start Date Occupation Industry Not on file Not on file Not on file Travel History Travel Start Travel End No recent travel history available. Last Filed Vital Signs Vital Sign Reading Time Taken Comments Blood Pressure 144/69 09/13/2019 2:28 PM [employer] Pulse 72 09/13/2019 2:28 PM [employer] Temperature - - Respiratory Rate - - Oxygen Saturation - - Inhaled Oxygen Concentration - - Weight 90.7 kg (200 lb) 09/13/2019 2:28 PM [employer] Height - - Body Mass Index - - Plan of Treatment Health Maintenance Due Date Last Done Comments DIABETIC RETINAL EYE EXAM 1955 DIABETIC FOOT EXAM 1965 URINE MICROALBUMIN 1965 COLONOSCOPY SCREENING 2005 SHINGLES VACCINES (#1) 2005 INFLUENZA VACCINE 05/30/2020 Procedures Procedure Name Priority Date/Time Associated Diagnosis Comme nts ECG 12-LEAD Routine 09/13/2019 2:31 PM ASCVD (arteriosclerot ic Results for this [employer] cardiovascular disease) proc edure are in the results section. after 05/18/2019 Results ECG 12 lead (09/13/2019 2:31 PM [employer]) Pathologist Sig nature Ventricular rate 75 [facility] Atrial rate 75 [facility] TX interval 138 [facility] QRSD interval 96 [facility] QT interval 376 [facility] QTC interval 419 [facility] P axis 1 72 [facility] QRS axis 1 -22 [facility] T wave axis 10 [facility] EKG impression Normal sinus [facility] rhythm-normal EKG-No previous ECGs available-Electronicall y Signed By Jordy Bob MD ([id number]) on 09/13/2019 3:08:37 PM Specimen Narrative Performed At This result has an attachment that is no t available. 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
--- OUTSIDE RECORDS SUMMARY | 2020-05-18 19:13 | XMS REPORT | Continuity of Care Document ---
:1955 Author Organization [facility] t Address [address] [place] [address] Care Team Providers Name Role Phone Asked, Pcp Primary Care Physician Unavailable Paulino JOYCE Attending Clinician Payers Payer Name Policy Type Policy Number Effective Date Expiration Date S ruba [facility] MED[facility]ARE[facility] xxxxxxxxx 2018 [place] MEDICARE COMPLETE 00:00:[address] [id number] [...] blood 2019-09-13 14:28:00 144 mm[Hg] [place] pressure Diastolic blood 2019-09-13 14:28:00 69 mm[Hg] [place] pressure Heart rate 2019-09-13 14:28:00 72 /min Javier Haynes Body weight 2019-09-13 14:28:00 90.719 kg Javier Haynes Procedures Procedure Date / Time Performed Performing Clinician Sour e ECG 12-LEAD 2019-09-13 14:31:49 Jordy Bob Plan of Care Planned Activity Planned Date Details Comments Source Future Scheduled 2020-05-30 INFLUENZA VACCINE [place] [facility] 00:00:00 [code = INFLUENZA VACCINE] Future Scheduled 2005 COLONOSCOPY SCREENING [place] [facility] 00:00:00 [code = COLONOSCOPY SCREENING] Future Scheduled 2005 SHINGLES VACCINES (#1) [place] [facility] 00:00:00 [code = SHINGLES VACCINES (#1)] Future Scheduled 1965 DIABETIC FOOT EXAM [place] [facility] 00:00:00 [code = DIABETIC FOOT EXAM] Future Scheduled 1965 URINE MICROALBUMIN [place] [facility] 00:00:00 [code = URINE MICROALBUMIN] Future Scheduled 1955 DIABETIC RETINAL EYE [place] [facility] 00:00:00 EXAM [code = DIABETIC RETINAL EYE EXAM] Results Test Description Test Time Test Comments Results Result Comments Source ECG 12 lead 2019-09-13 15:08:38 Test Item Value Reference Range Interpretation Comme nts Ventricular rate (test code = 253) 75 Atrial rate (test code = 255) 75 RI interval (test code = 266) 138 QRSD [...]
[2020-05-18] MEDS ORDERED: MORPHINE 4 MG/ML SYR ONE ×2 (20:19→22:07)
[2020-05-18] MEDS ORDERED: ONDANSETRON 4 MG/2 ML VIAL ONE (20:19)
--- NOTE | 2020-05-18 20:19 | RAD REPORT ---
EXAM DESCRIPTION: RAD - Chest Single View - 05/18/2020 8:04 pm CLINICAL HISTORY: CHEST PAIN COMPARISON: Portable February 21 TECHNIQUE: AP portable chest image was obtained 05/18/2020 8:04 pm . FINDINGS: Lungs are clear. Heart and vasculature are normal. No measurable pleural effusion and no p neumothorax. No acute bony abnormality seen. No acute aortic findings suspected. IMPRESSION: No acute cardiopulmonary process. No significant change from comparison.
[2020-05-18 20:22] LABS: Absolute Lymphocytes (CBC) 1.2 K/uL (0.7-4.9); Basophils % 0.9 % (0-1.3); Hematocrit 45.1 % (39.6-49.0); Lymphocytes % 25.4 % (15.3-44.8); MPV 9.8 fL (7.6-11.3); RBC Red Blood Cell Count 4.71 M/uL (4.33-5.43)
[2020-05-18 20:23] LABS: Protime INR 0.88
[2020-05-18 20:36] LABS: ALT/SGPT 39 U/L (12-78); AST/SGOT 24 U/L (15-37); Albumin 3.7 g/dL (3.4-5.0); Alkaline Phosphatase 107 U/L (45-117); BUN Blood Urea Nitrogen 14 mg/dL (7-18); Bicarbonate 25 mmol/L (21-32); Bilirubin Direct < 0.1 mg/dL (0-0.2); Bilirubin Total 0.6 mg/dL (0.2-1.0); Magnesium 1.8 mg/dL (1.8-2.4); NT PRO-BNP 79 pg/mL (<125); Potassium 4.3 mmol/L (3.5-5.1); Protein, Total 7.9 g/dL (6.4-8.2); Sodium Level 132 mmol/L (136-145); Troponin (Emerg Dept Use Only) < 0.02 ng/mL (0.0-0.045)
[2020-05-18 20:39] LABS: Glucose Level 440 mg/dL (74-106)
[2020-05-18] MEDS ORDERED: NA CHLORIDE 0.9% 1,000 ML ONE (20:56)
[2020-05-18 20:59] LABS: Lipase 362 U/L (73-393)
--- NOTE | 2020-05-18 21:25 | RAD REPORT ---
EXAM DESCRIPTION: CT - Angio Aorta For Dissection - 05/18/2020 9:12 pm CLINICAL HISTORY: chest pain, abdominal pain COMPARISON: Portable chest May 18, CT chest May 2015. TECHNIQUE: Dynamically enhanced 3 mm thick images of the chest, abdomen, and upper pelvis were obtai sophie during administration of approximately 150mL Isovue 370 IV contrast. Sagittal and coronal reconst ruction images were generated using MIP and reviewed. Exam utilizes a protocol to evaluate entire cou rse of the aorta. All CT scans are performed using dose optimization technique as appropriate and may include automated exposure control or mA/KV adjustment according to patient size. FINDINGS: No aortic aneurysm. No acute dissection changes are identified. There is irregular plaquin g change and suspected ulceration along the inferior aspect of the aortic arch. Additional atheroscle rotic irregular plaquing changes are present in the infrarenal abdominal aorta. Plaquing changes exte nd into the common iliac arteries where there is 50% stenosis at the origin of the left common iliac artery. Approximately 40% stenosis at the origin of the left internal iliac artery. Noncontrast CT ch est imaging from 2014 is not adequate for aorta comparison. No pulmonary artery abnormality. No cardiomegaly, pericardial thickening or pericardial effusion. No mass or infiltrate in the lung parenchyma. No pleural thickening, pleural effusion or pneumothorax . No abnormal mediastinal or hilar mass or lymphadenopathy seen. No chest wall mass or abnormal axillar y lymphadenopathy. Wall thickening without stenosis of the superior mesenteric artery. Atherosclerotic plaquing changes are present at the origin of the left renal artery without significant luminal narrowing. Solid abdominal viscera and bowel show no significant findings. No mass or abnormal lymphadenopathy . No free air, free fluid or inflammatory stranding. No urinary bladder abnormality. No acute bone finding. Disc and bony degenerative changes are present. IMPRESSION: No aortic aneurysm. No acute aortic dissection changes. Patient has ulcerative plaquing changes along the inferior aspect of the aortic arch with prominent p laquing changes in the infrarenal abdominal aorta as well. 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 No other significant findings on chest, abdomen and upper pelvis examination.
[2020-05-18] MEDS ORDERED: INSULIN -REGULAR HUMAN 50 UNIT/0.5 ML ML ONE (21:28)
--- NOTE | 2020-05-18 21:30 | ER ---
Nurse's Notes [facility] Name: Yousuf Braxton Age: 64 yrs Sex: Male : 1955 Arrival Date: 05/18/2020 Time: 19:12 Bed 16 Private MD: Diagnosis: Chest pain, unspecified Presentation: 05/18 19:20 Chief complaint: Patient states: CHEST PAIN STARTED AT [address] PM[address] I WAS [address] DR VELAZQUEZ ls4 TODAY AND HE SAID EVERYTHING WAS FINE. 19:20 Coronavirus screen: At this time, the client does not indicate any symptoms associated ls4 with coronavirus-19. Ebola Screen: No symptoms or risks identified at this time. Onset of symptoms was May 18, 2020 at 17:30. 19:20 Method Of Arrival: Ambulatory ls4 19:20 Acuity: JORDY 2 ls4 19:38 Initial Sepsis Screen: Does the patient meet any 2 criteria? No. Patient's initial ls4 sepsis screen is negative. Does the patient have a suspected source of infection? No. Patient's initial sepsis screen is negative. Risk Assessment: Do you want to hurt yourself or someone else? Patient reports no desire to harm self or others. Historical: - Allergies: 19:43 Codeine; ls4 - PMHx: 19:43 CAD; Diabetes - NIDDM; High Cholesterol; Hypertension; Myocardial infarction; ls4 Pancreatitis; - Immunization history:: Adult Immunizations up to date. - Social history:: Smoking status: Patient uses Vape, Patient/guardian denies using. Screenin:30 Abuse screen: Denies threats or abuse. Denies injuries from another. Nutritional wh screening: No deficits noted. Tuberculosis screening: No symptoms or risk factors identified. Fall Risk None identified. Assessment: 19:25 General: Appears in no apparent distress. Behavior is calm, cooperative, appropriate wh for age. Pain: Complains of pain in chest Pain does not radiate. Pain currently is 7 out of 10 on a pain scale. Quality of pain is described as pressure, Pain began 3 hours ago. Neuro: Level of Consciousness is awake, alert, obeys commands, Oriented to person, place, time, situation, Appropriate for age. Cardiovascular: Reports chest pain, Heart tones S1 S2 Rhythm is sinus tachycardia. Respiratory: Airway is patent Respiratory effort is even, unlabored, Respiratory pattern is regular, symmetrical, Breath sounds are clear bilaterally. GI: Abdomen is flat, non-distended. : No signs and/or symptoms were reported regarding the genitourinary system. EENT: No signs and/or symptoms were reported regarding the EENT system. Derm: Skin is intact, is healthy with good turgor, Skin is pink, warm \T\ dry. normal. Musculoskeletal: Circulation, motion, and sensation intact. 20:40 Reassessment: Patient appears in no apparent distress at this time. No changes from previously documented assessment. Patient and/or family updated on plan of care and expected duration. Pain level reassessed. Patient is alert, oriented x 3, equal unlabored respirations, skin warm/dry/pink. Patient states feeling better. 21:35 Reassessment: Patient appears in no apparent distress at this time. No changes from previously documented assessment. Patient and/or family updated on plan of care and expected duration. Pain level reassessed. Patient is alert, oriented x 3, equal unlabored respirations, skin warm/dry/pink. 22:30 Reassessment: Patient appears in no apparent distress at this time. No changes from previously documented assessment. Patient and/or family updated on plan of care and expected duration. Pain level reassessed. Patient is alert, oriented x 3, equal unlabored respirations, skin warm/dry/pink. Vital Signs: 19:30 BP 127 / 81; Pulse 107; Resp 18; Pulse Ox 93% on R/A; wh 19:38 BP 127 / 89; Pulse 114; Resp 18; Temp 98.2(O); Pulse Ox 94% on R/A; Weight 87.54 kg; ls4 Height 5 ft. 6 in. (167.64 cm); Pain 8/10; 20:45 BP 126 / 85; Pulse 105; Resp 18; Pulse Ox 93% on R/A; wh 21:30 BP 117 / 82; Pulse 92; Resp 18; Pulse Ox 95% on R/A; wh 22:30 BP 109 / 81; Pulse 87; Resp 18; Pulse Ox 95% on R/A; wh 19:38 Body Mass Index 31.15 (87.54 kg, 167.64 cm) ls4 ED Course: 19:12 Patient arrived in ED. bp1 19:19 Cyril Hendrickson is Primary Nurse. wh 19:19 Deemtrio Hernandez PA is [facility] 19:19 Leo Frank MD is Attending Physician. [facility] 19:30 Patient has correct armband on for positive identification. Placed in gown. Bed in low wh position. Call light in reach. Side rails up X 1. library monitor on. Pulse ox on. NIBP on. 19:38 Triage completed. ls4 19:45 Inserted saline lock: 22 gauge in left antecubital area, using aseptic technique. Blood wh collected. Patient maintains SpO2 saturation greater than 95% on room air. 19:46 Arm band placed on left wrist. ls4 20:04 XRAY Chest (1 view) In Process Unspecified. EDMS 21:12 CT Aorta for Dissection In Process Unspecified. EDAL 21:29 Melo Xiong MD is Hospitalizing Provider. m 22:35 No provider procedures requiring assistance completed. Patient admitted, IV remains in wh place. Administered Medications: 20:10 Drug: morphine 4 mg {Note: RASS 0.} Route: IVP; Site: left antecubital; 22:01 Follow up: Response: No adverse reaction; Pain is decreased; RASS: Alert and Calm (0) 20:12 Drug: Zofran (Ondansetron) 4 mg Route: IVP; Site: left antecubital; 22:01 Follow up: Response: No adverse reaction 21:20 Drug: NS 0.9% 1000 ml Route: IV; Rate: 1 bolus; Site: left antecubital; 22:01 Follow up: Response: No adverse reaction; IV Status: Completed infusion 21:20 Drug: Insulin Regular Human 5 units {Co-Signature: vc (Melanie Hodge RN).} Route: IVP; Site: left antecubital; 22:39 Follow up: Response: No adverse reaction; Blood sugar is lowered 22:00 Drug: morphine 4 mg {Note: RASS 0.} Route: IVP; Site: left antecubital; 22:39 Follow up: Response: No adverse reaction; Pain is decreased; RASS: Alert and Calm (0) 22:01 Drug: Aspirin Chewable Tablet 324 mg Route: PO; 22:39 Follow up: Response: No adverse reaction Outcome: 21:29 Decision to Hospitalize by Provider. jmm 22:35 Admitted to Med/surg accompanied by tech, via wheelchair, room 206, with chart, Report wh called to Denia Alonso RN 22:35 Condition: stable 22:35 Instructed on the need for admit. 23:21 Patient left the ED. wh Signatures: Dispatcher [employer] EDMS Demetrio Hernandez, Cyril Cox Lisa, RN RN ls4 Toya Bhatt RN vc Corrections: (The following items were deleted from the chart) 19:42 19:38 BP 127 / 89; Pulse 114bpm; Resp 18bpm; Pulse Ox 94% RA; Temp 98.2F Oral; Pain ls4 8/10; ls4 19:48 19:46 Pulse 80bpm; Resp 26bpm; Pulse Ox 97% RA; Temp 98.4F Oral; ls4 ls4
--- NOTE | 2020-05-18 21:30 | EDPHYS ---
Physician Documentation [facility] Name: Yousuf Braxton Age: 64 yrs Sex: Male : 1955 Arrival Date: 05/18/2020 Time: 19:12 Bed 16 Private MD: ED Physician Leo Frank HPI: 05/18 19:24 This 64 yrs old Male presents to ER via Ambulatory with complaints of Chest jmm Pain. 19:24 The patient or guardian reports chest pain that is located primarily in the anterior [facility] chest wall. Onset: acutely, today. The pain does not radiate. Associated signs and symptoms: Pertinent positives:. The chest pain is described as sharp. Duration: The patient or guardian reports a single episode, that is still ongoing. This is a 64 year old male with a history of CAD, DM, HLP, that presents to the ED with complaints of chest pain beginning after bending over. Patient denies shortness of breath. Pain does not radiate. . Historical: - Allergies: 19:43 Codeine; ls4 - PMHx: 19:43 CAD; Diabetes - NIDDM; High Cholesterol; Hypertension; Myocardial infarction; ls4 Pancreatitis; - Immunization history:: Adult Immunizations up to date. - Social history:: Smoking status: Patient uses Vape, Patient/guardian denies using. ROS: 19:24 Constitutional: Negative for fever, chills, and weight loss. jmm 19:24 Abdomen/GI: Negative for abdominal pain, nausea, vomiting, diarrhea, and constipation. 19:24 Cardiovascular: Positive for chest pain. 19:24 All other systems are negative. Exam: 19:24 Constitutional: This is a well developed, well nourished patient who is awake, alert, jmm and in no acute distress. Head/Face: atraumatic. Eyes: EOMI, no conjunctival erythema appreciated ENT: Moist Mucus Membranes Neck: Trachea midline, Supple Chest/axilla: Normal chest wall appearance and motion. Cardiovascular: Regular rate and rhythm. No edema appreciated Respiratory: Normal respirations, no respiratory distress appreciated Abdomen/GI: Non distended, soft Back: Normal ROM Skin: General appearance color normal MS/ Extremity: Moves all extremities, no obvious deformities appreciated, no edema noted to the lower extremities Neuro: Awake and alert, normal gait Psych: Behavior is normal, Mood is normal, Patient is cooperative and pleasant 19:24 Chest/axilla: Palpation: tenderness, that is moderate, of the anterior aspect of left upper chest, that partially reproduces the patient's complaints. Vital Signs: 19:30 BP 127 / 81; Pulse 107; Resp 18; Pulse Ox 93% on R/A; wh 19:38 BP 127 / 89; Pulse 114; Resp 18; Temp 98.2(O); Pulse Ox 94% on R/A; Weight 87.54 kg; ls4 Height 5 ft. 6 in. (167.64 cm); Pain 8/10; 20:45 BP 126 / 85; Pulse 105; Resp 18; Pulse Ox 93% on R/A; wh 21:30 BP 117 / 82; Pulse 92; Resp 18; Pulse Ox 95% on R/A; wh 22:30 BP 109 / 81; Pulse 87; Resp 18; Pulse Ox 95% on R/A; wh 19:38 Body Mass Index 31.15 (87.54 kg, 167.64 cm) ls4 MDM: 19:43 Patient medically screened. [facility] 21:28 The patient was given aspirin in the Emergency Department. Data reviewed: vital signs, [facility] nurses notes, lab test result(s), EKG, radiologic studies, CT scan, plain films. ED course: I discussed the patient with ONIEL Lopez. Whom accepted the patient to Dr. Xiong's service. . 05/18 19:24 Order name: Basic Metabolic Panel; Complete Time: 21:01 [facility] 05/18 19:24 Order name: CBC with Diff; Complete Time: 20:40 [facility] 05/18 19:24 Order name: LFT's; Complete Time: 21:01 [facility] 05/18 19:24 Order name: Magnesium; Complete Time: 21:01 [facility] 05/18 19:24 Order name: NT PRO-BNP; Complete Time: 21:01 [facility] 05/18 19:24 Order name: PT-INR; Complete Time: 20:40 [facility] 05/18 19:24 Order name: Troponin (emerg Dept Use Only); Complete Time: 21:01 [facility] 05/18 19:24 Order name: XRAY Chest (1 view); Complete Time: 20:24 [facility] 05/18 20:51 Order name: CT Aorta for Dissection; Complete Time: 21:27 [facility] 05/18 20:54 Order name: Lipase; Complete Time: 21:01 EDMS 05/18 22:40 Order name: Glucose, Ancillary Testing; Complete Time: 22:40 EDMS 05/18 23:11 Order name: Urine Dipstick--Ancillary (enter results) tt3 05/18 19:24 Order name: EKG; Complete Time: 19:24 [facility] 05/18 19:24 Order name: Cardiac monitoring; Complete Time: 20:00 [facility] 05/18 19:24 Order name: EKG - Nurse/Tech; Complete Time: 20:00 [facility] 05/18 19:24 Order name: IV Saline Lock; Complete Time: 20:00 [facility] 05/18 19:24 Order name: Labs collected and sent; Complete Time: 20:00 [facility] 05/18 19:24 Order name: O2 Per Protocol; Complete Time: 20:00 [facility] 05/18 19:24 Order name: O2 Sat Monitoring; Complete Time: 20:00 jm Administered Medications: 20:10 Drug: morphine 4 mg {Note: RASS 0.} Route: IVP; Site: left antecubital; 22: Follow up: Response: No adverse reaction; Pain is decreased; RASS: Alert and Calm (0) 20:12 Drug: Zofran (Ondansetron) 4 mg Route: IVP; Site: left antecubital; 22: Follow up: Response: No adverse reaction : Drug: NS 0.9% 1000 ml Route: IV; Rate: 1 bolus; Site: left antecubital; 22:01 Follow up: Response: No adverse reaction; IV Status: Completed infusion 21:20 Drug: Insulin Regular Human 5 units {Co-Signature: vc (Melanie Hodge RN).} Route: IVP; Site: left antecubital; 22:39 Follow up: Response: No adverse reaction; Blood sugar is lowered 22:00 Drug: morphine 4 mg {Note: RASS 0.} Route: IVP; Site: left antecubital; 22:39 Follow up: Response: No adverse reaction; Pain is decreased; RASS: Alert and Calm (0) 22: Drug: Aspirin Chewable Tablet 324 mg Route: PO; 22:39 Follow up: Response: No adverse reaction Disposition: 05/19 05:56 Co-signature as Attending Physician, Leo Frank MD. 7 Disposition: 05/18/20 21:29 Hospitalization ordered by Melo Xiong for Observation. Preliminary diagnosis is Chest pain, unspecified. - Bed requested for Telemetry/MedSurg (observation). - Status is Observation. - Condition is Stable. - Problem is new. - Symptoms are unchanged. Signatures: Dispatcher [employer] EDSD Demetrio Hernandez PA PA [facility] Hal Silverio, BRAND SPECIALIST-C BRAND SPECIALIST-Cla1 Avis Belle, RN RN tl1 Cyril Hendrickson Brittanie Frey RN RN 4 Leo Frank MD MD 7 Melanie Hodge RN Corrections: (The following items were deleted from the chart) 05/18 20:53 20:50 LIPASE+C.LAB.BRZ ordered. EDSD EDSD 22:06 21:29 Hospitalization Ordered by Melo Xiong MD for Observation. Preliminary tl1 diagnosis is Chest pain, unspecified. Bed requested for Telemetry/MedSurg (observation). Status is Observation. Condition is Stable. Problem is new. Symptoms are unchanged. [facility] 23:21 22:06 05/18/2020 21:29 Hospitalization Ordered by Melo Xiong MD for Observation. Preliminary diagnosis is Chest pain, unspecified. Bed requested for Telemetry/MedSurg (observation). Status is Observation. Condition is Stable. Problem is new. Symptoms are unchanged. tl1
--- NOTE | 2020-05-18 22:05 | P.HP ---
Certification for Inpatient Patient admitted to: Observation With expected LOS: <2 Midnights Patient will require the following post-hospital care: None Practitioner: I am a practitioner with admitting privileges, knowledge of patient current condition, hospital course, and medical plan of care. Services: Services provided to patient in accordance with Admission requirements found in Title 42 Section 412.3 of the Code of Federal Regulations <YemaríaHal - Last Filed: 05/18/20 22:01> Patient History Date of Service: 05/18/20 Primary Care Provider: Dr. Harris Reason for admission: Chest pain History of Present Illness: 64-year-old male with history of coronary artery disease, hypertension, diabetes mellitus type 2, pancreatitis presents emergency department for chest pain. Patient reports that he was working on getting stuff out of his car when he bends over he had onset of pressure-like chest pain. Patient reports that it feels like somebody was standing on his chest at that time. Patient reports pain lasted for approximately 2.5 hr medicines let up significantly. 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 Patient's initial workup in the emergency department unremarkable. ED provider wishes to admit patient for further evaluation and management based on his previous risk factors. When I saw the patient in the emergency department is awake, alert, oriented x4. Patient and very mild pain at this time primarily in his back. Patient does have chronic back pain as well. Patient be admitted under observation for further evaluation and management. - Past Medical/Surgical History Diabetic: Yes -: CAD -: Diabetes -: HTN -: [place] -: Pancreatitis -: HLD -: Angioplasty -: Heart stent x3 -: R ankle sx Psychosocial/ Personal History: Patient lives at home alone. - Family History Father Notes: parkinsons, dementia Mother -: Lung disease - Social History Alcohol use: Yes CD- Drugs: No Caffeine use: Yes Place of Residence: Home <Hal Silverio - Last Filed: 05/18/20 22:01> Date of Service: 05/19/20 <Juanito Xiong - Last Filed: 05/19/20 11:17> Allergies codeine [Codeine] Allergy (Intermediate, Verified 05/19/20 01:10) Hives/Rash Home Medications: ALPRAZolam [Alprazolam] 2 mg PO BID 05/19/20 Aspirin Chewable [Aspirin Chewable*] 81 mg PO DAILY 05/19/20 Cyanocobalamin (Vitamin B-12) [Vitamin B-12] 1 tab PO DAILY 05/19/20 Dulaglutide [Trulicity] 0.5 ml SQ EVERY 7TH DAY 05/19/20 Hydrocodone/Acetaminophen [Hydrocodone-Acetamin 10-325 mg] 1 tab PO QID 05/19/20 Lisinopril [Zestril] 10 mg PO DAILY 05/19/20 Metoprolol Tartrate 100 mg PO BID 05/19/20 Omeprazole 20 mg PO DAILY 05/19/20 Ranolazine [Ranolazine ER] 1,000 mg PO BID 05/19/20 Sildenafil Citrate [Viagra] 100 mg PO DAILY PRN 05/19/20 glipiZIDE [Glipizide] 5 mg PO BID 05/19/20 terbinafine HCL [Lamisil*] 250 mg PO DAILY 05/19/20 Review of Systems 10-point ROS is otherwise unremarkable Cardiovascular: Chest Pain Musculoskeletal: Back Pain <Hal Silverio - Last Filed: 05/18/20 22:01> Physical Examination - Physical Exam General: Alert, In no apparent distress - Studies Laboratory Data (last 24 hrs) 05/18/20 20:50: Lipase Cancelled 05/18/20 19:55: PT 10.4, INR 0.88 05/18/20 19:55: WBC 4.7, Hgb 15.4, Hct 45.1, Plt Count 219 05/18/20 19:55: Sodium 132 L, Potassium 4.3, BUN 14, Creatinine 1.39 H, Glucose 440 H*, Magnesium 1.8, Total Bilirubin 0.6, AST 24, ALT 39, Alkaline Phosphatase 107, Lipase 362 <Hal Silverio - Last Filed: 05/18/20 22:01> - Studies Laboratory Data (last 24 hrs) 05/18/20 20:50: Lipase Cancelled 05/18/20 19:55: PT 10.4, INR 0.88 05/18/20 19:55: WBC 4.7, Hgb 15.4, Hct 45.1, Plt Count 219 05/18/20 19:55: Sodium 132 L, Potassium 4.3, BUN 14, Creatinine 1.39 H, Glucose 440 H*, Magnesium 1.8, Total Bilirubin 0.6, AST 24, ALT 39, Alkaline Phosphatase 107, Lipase 362 <Juanito Xiong - Last Filed: 05/19/20 11:17> Assessment and Plan - Plan Assessment Chest pain with history of coronary artery disease rule out ACS Diabetes mellitus type 2 with hyperglycemia Hypertension Hyperlipidemia Chronic pain Plan Chest pain with history of coronary artery disease rule out ACS: Cardiology has been consulted on this case. Patient will remain NPO after midnight. Will trend troponins. Aspirin, beta-karl therapy, statin therapy in place. Appreciate further input from cardiology. Patient remain on telemetry throughout this hospitalization. DVT prophylaxis with heparin 5000 units subcutaneous twice daily. Diabetes mellitus type 2 with hyperglycemia: A.c. HS Accu-Cheks, sliding scale insulin therapy in place. Patient reports he had A1c less than 2 months ago that was 8.9. Further adjustments in medications can be made by primary care doctor. Hypertension: Obtain and continue patient's home medications. Hyperlipidemia: Obtain and continue patient's home medications. Chronic pain: Obtain and continue patient's home medications. Discharge Plan: Home Plan to discharge in: 24 Hours - Advance Directives Does patient have a Living Will: No Does patient have a Durable POA for Healthcare: No - Code Status/Comfort Care Code Status Assessed: Yes (Patient is full code) Critical Care: No Time Spent Managing Pts Care (In Minutes): 55 <Hal Silverio - Last Filed: 05/18/20 22:01> Physician Review: Patient Assessed, Agree with Above Assessment and Plan Physician Review Additional Text: Patient was seen and examined and findings were discussed Agreee with the assessment and plan as documented by the [facility] <Juanito Xiong - Last Filed: 05/19/20 11:17>
[2020-05-18] MEDS ORDERED: ASPIRIN 81 MG CHEWABLE TABLET ONE (22:07)
[2020-05-18 23:23] LABS: Urine Blood NEGATIVE (NEG); Urine Glucose 2+ (NEG); Urine Protein NEGATIVE (NEG); Urine Specific Gravity <1.005 (1.005-1.030)
[2020-05-18] MEDS ORDERED: ONDANSETRON 4 MG/2 ML VIAL IV PRN (23:26)
[2020-05-18] MEDS ORDERED: HYDROCODONE/APAP 10/325 TAB PO PRN (23:26)
[2020-05-19] MEDS: NA CHLORIDE 0.9% 1,000 ML IV SCH ×3 (00:23→17:57)
[2020-05-19 00:27] VITALS: BMI 30.7
[2020-05-19] MEDS: MORPHINE 2 MG/ML SYR IV PRN ×4 (01:56→17:55)
[2020-05-19] MEDS: METOPROLOL TAR 25 MG TAB PO SCH ×3 (05:52→17:56)
[2020-05-19 06:18] LABS: Absolute Lymphocytes (CBC) 1.7 K/uL (0.7-4.9); Basophils % 0.8 % (0-1.3); Hematocrit 42.1 % (39.6-49.0); Lymphocytes % 37.1 % (15.3-44.8); MPV 9.6 fL (7.6-11.3); RBC Red Blood Cell Count 4.39 M/uL (4.33-5.43)
[2020-05-19 06:33] LABS: Potassium 4.2 mmol/L (3.5-5.1)
[2020-05-19] MEDS: INSULIN -REGULAR HUMAN 50 UNIT/0.5 ML ML SQ SCH ×4 (06:50→22:04)
[2020-05-19] MEDS: ASPIRIN EC 81 MG TAB PO SCH (08:03)
[2020-05-19] MEDS: HEPARIN 5000 UNIT/ML 1 ML VIAL SQ SCH ×3 (08:04→22:01)
--- NOTE | 2020-05-19 11:22 | P.PN ---
Subjective Date of Service: 05/19/20 Primary Care Provider: Dr. Harris Chief Complaint: Chest pain Subjective: No new changes, Other (Chest pain is improving) Review of Systems 10-point ROS is otherwise unremarkable Physical Examination - Vital Signs Temperature: 96.5 F Blood Pressure: 110/59 Pulse: 62 Respirations: 20 Pulse Ox (%): 98 - Physical Exam General: Alert, In no apparent distress HEENT: Atraumatic, Normocephalic Neck: Supple Respiratory: Clear to auscultation bilaterally Cardiovascular: Regular rate/rhythm, Normal S1 S2 Capillary refill: <2 Seconds Gastrointestinal: Soft and benign, Non-distended Musculoskeletal: No clubbing, No swelling Integumentary: No rashes, No breakdown Neurological: Normal speech, Normal strength at 5/5 x4 extr Lymphatics: No axilla or inguinal lymphadenopathy - Studies Laboratory Data (last 24 hrs) 05/18/20 20:50: Lipase Cancelled 05/18/20 19:55: PT 10.4, INR 0.88 05/18/20 19:55: WBC 4.7, Hgb 15.4, Hct 45.1, Plt Count 219 05/18/20 19:55: Sodium 132 L, Potassium 4.3, BUN 14, Creatinine 1.39 H, Glucose 440 H*, Magnesium 1.8, Total Bilirubin 0.6, AST 24, ALT 39, Alkaline Phosphatase 107, Lipase 362 Assessment & Plan Physician Review: Patient Assessed, Agree with Above Assessment and Plan Physician Review Additional Text: Unstable angina History of coronary artery disease rule out ACS Diabetes mellitus type 2 with hyperglycemia Hypertension Hyperlipidemia Chronic pain Plan Chest pain with history of coronary artery disease rule out ACS: Cardiology has been consulted on this case. Patient will remain NPO after midnight. Will trend troponins. Aspirin, beta-karl therapy, statin therapy in place. Awaiting further recommendations from cardiology Diabetes mellitus type 2 with hyperglycemia: A.c. HS Accu-Cheks, sliding scale insulin therapy Patient reports he had A1c less than 2 months ago that was 8.9. Further adjustments in medications can be made by primary care doctor. Hypertension: Obtain and continue patient's home medications. Hyperlipidemia: Obtain and continue patient's home medications. Chronic pain: Obtain and continue patient's home medications. Disposition: Cardiac enzymes trended awaiting further recommendations from cardiology CT findings noted, plaques noted Discharged home once cleared by cardiology Time Spent Managing Pts Care (In Minutes): 42
[2020-05-19] MEDS ORDERED: HEPA 1000U/500MLS 2,000 UNIT/1,000 ML BAG IV ONE (12:41)
[2020-05-19] MEDS ORDERED: HEPARIN 5000 UNIT/ML 1 ML VIAL ONE (12:41)
[2020-05-19] MEDS ORDERED: NITROGLYCERIN 100 MCG/ML SYR (for cath lab use only) IV ONE (12:42)
[2020-05-19] MEDS ORDERED: NICARDIPINE HCL 25 MG/10 ML IV ONE (12:42)
[2020-05-19] MEDS ORDERED: MIDAZOLAM HCL 2 MG/2 ML INJ ONE ×2 (12:42→13:30)
[2020-05-19] MEDS ORDERED: ATROPINE SULF 1 MG/10 ML SYR IV ONE (12:42)
[2020-05-19] MEDS ORDERED: FENTANYL CITR 100 MCG/2 ML ONE (12:42)
[2020-05-19] MEDS ORDERED: NITROGLYCERIN/D5W 25 MG/250 ML BTL IV ONE (12:43)
[2020-05-19] MEDS ORDERED: HEPA 1000U/500MLS 1,000 UNIT/500 ML BAG IV ONE (14:16)
[2020-05-19] MEDS ORDERED: TICAGRELOR 90 MG TABLET PO ONE (14:30)
[2020-05-19] MEDS ORDERED: INSULIN -REGULAR HUMAN 50 UNIT/0.5 ML ML ONE (16:49)
--- NOTE | 2020-05-19 19:31 | CON ---
Date of Consultation: 05/19/2020 Reason For Consultation: Elevated troponin with chest pain. History Of Present Illness: A 64-year-old male with history of coronary artery disease, diffuse, kno wn by catheterization last year, hypertension, diabetes, pancreatitis, dyslipidemia, presented with c hest pain. He was unloading his truck and had severe heaviness that radiates to his neck with nausea and lasted for about an hour and then resolved completely, asymptomatic now, but minimal activities brings on significant chest pain that has been going on and off for a long time now. Past Medical History: As outlined above in HPI. Medications: Refer to reconciliation sheet for detailed list. Allergies: CODEINE. Past Surgical History: Cardiac stents and right ankle surgery. Family History: No premature coronary artery disease or cancer. Review of Systems: All systems reviewed and they were negative except what is mentioned in the HPI. Physical Examination: Vital Signs: Temperature is 97.4. Pulse 64, breathing at 18, blood pressure is 107/58, saturating 9 6% on room air. General: Pleasant middle-aged male, in no apparent distress. Head and Neck: Pupils are equal, reactive to light. Intact eye movements. No JVD. No cervical nod es. Neck is supple. Thyroid is not enlarged. Lungs: Clear to auscultation bilaterally. No rhonchi, rales, crackles. No accessory muscle use. Heart: Regular rate and rhythm. No extra sounds. Abdomen: Soft, nontender. Bowel sounds positive. No organomegaly. No masses or hernias. No rigid ity or rebound. Extremities: No edema, clubbing, or cyanosis. Intact pulses. Skin: No rashes. Neurologic: Alert, awake, oriented x3. No acute focal deficits appreciated. Investigations: Troponin 0.17, then 0.13. Sodium 136, BUN is 12, creatinine 0.8. Assessment/plan: 1.Non-ST elevation myocardial infarction. The patient is known to have severe coronary artery disea se. I would recommend a coronary angiogram. Risks, benefits, alternatives were explained to the pat ient. I agree with the procedure and signed informed consent. We will schedule the patient to be do ne today. Keep n.p.o. until procedure is done. 2.Diabetes. Check sugars and aggressive diabetes control is recommended. 3.Hypertension. Blood pressure is controlled. Continue current management. Thank you for the courtesy of this consultation. SR/BRUNA Voice ID: [id number] Report ID: [id number]
[2020-05-19] MEDS ORDERED: ATORVASTATIN 40 MG TAB PO SCH (21:00)
[2020-05-19] MEDS ORDERED: HOME MED 1 EA UNK (Alprazolam [Alprazolam] 2 MG) PO PRN (22:14)
[2020-05-19] MEDS: ALPRAZOLAM 1 MG TABLET PO SCH (23:15)
--- NOTE | 2020-05-20 01:07 | OP ---
Date of Procedure: 05/19/2020 Surgeon: DIANA PRAJAPATI Procedures Performed: 1.Selective coronary angiogram. 2.PCI of severe mid to distal ramus and intermedius coronary artery stenosis using 2.25 x 20 mm Syne rgy drug-eluting stent. Access: Right radial artery 6-Bermudian, closed with TR band. Indication: Non-ST elevation myocardial infarction. Complications: None. Total Sedation Time: 50 minutes. Procedure In Detail: After risks, benefits, and alternatives were explained to the patient, the carla ent agreed to the procedure and signed informed consent. The patient was brought back to the cardiac catheterization laboratory, prepped and draped in usual sterile fashion, and then we accessed right radial artery using pediatric micropuncture kit and we took the 6-Bermudian slender sheath over the wire , placed them through the radial artery and we took the 5-Bermudian [place] catheter over J-wire into the aortic root, obtained standard views of the left main and the right coronary artery and determined in tervention as needed for severe 95% to 99% stenosis of the mid to distal ramus intermedius. Then, we exchanged to EBU 3.5. See intervention details. Intervention Details: Systemic heparin was given to assure ACT level above 250. Then, we took EBU 3 .5 over the J-wire into the aortic root, engaged left main coronary artery and then we took a short r un-through wire across the stenosis of the ramus intermedius and we took a 2.0 X 15 balloon and infla omaira it to high pressure across the stenosis and pre-dilated the lesion very well. Then, we took 2.25 x 20 mm Synergy drug-eluting stent across the stenosis and deployed it overlapping with the previous ly present stent in the ramus and deployed the stent successfully without complications. Then, we to ok the wires out and we took final picture with excellent results. No complications. Took the guide and the catheter out and the sheath, and we closed the access with a TR band. Lesion length was about 18 mm. Severity is 95% to 99%. MARIBEL-2 flow before PCI and MARIBEL-3 flow after PCI in 0% residual stenosis post PCI. Findings: 1.Left main is large and normal. 2.LAD ostial either is 20% to 30% stenosis and then proximal mid to distal is rather smaller artery with diffuse luminal irregularity and 10% disease at certain places. 3.Ramus intermedius has a proximal stent that has about 20% ISR and then distal to the stent, there is a long segment of severe 95% to 99% stenosis, status post successful PCI as above. 4.Left circumflex is small artery with luminal irregularities. 5.Right coronary artery is very small diffusely diseased artery, but has MARIBEL-3 flow. Conclusion: 1.Severe ramus intermedius stenosis, which is a culprit for the acute myocardial infarction, status post successful PCI as above. 2.Coronary artery disease elsewhere as above. Recommendations: 1.The patient was loaded with Brilinta 180 mg, continue 90 mg q.12 hours, aspirin 81 mg daily and hi gh-dose statin. 2.Aggressive cardiac risk factor modification and follow up in the office in 4 weeks post discharge. /MARY ELLENL Voice ID: [id number] Report ID: [id number]
[2020-05-20 02:45] VITALS: O2SAT 98
[2020-05-20] MEDS: NA CHLORIDE 0.9% 1,000 ML IV SCH ×2 (03:02→03:03)
[2020-05-20] MEDS: METOPROLOL TAR 25 MG TAB PO SCH (06:28)
[2020-05-20] MEDS: HEPARIN 5000 UNIT/ML 1 ML VIAL SQ SCH (07:48)
[2020-05-20] MEDS: ASPIRIN EC 81 MG TAB PO SCH ×4 (07:49→07:57)
[2020-05-20] MEDS: INSULIN -REGULAR HUMAN 50 UNIT/0.5 ML ML SQ SCH (07:53)
[2020-05-20] MEDS: ALPRAZOLAM 1 MG TABLET PO SCH (08:32)
[2020-05-20] MEDS ORDERED: ALPRAZOLAM 1 MG TABLET PO SCH (09:00)
[2020-05-20] MEDS ORDERED: HOME MED 1 EA UNK (Alprazolam [Alprazolam] 2 MG) PO SCH (09:00)
--- NOTE | 2020-05-20 09:24 | P.DS ---
Admission Date: 05/20/20 Discharge Date: 05/20/20 Primary Care Provider: Dr. Harris Disposition: ROUTINE DISCHARGE Discharge Condition: GOOD Reason for Admission: Chest pain Brief History of Present Illness: 64-year-old male with history of coronary artery disease, hypertension, diabetes mellitus type 2, pancreatitis presents emergency department for chest pain. Patient reports that he was working on getting stuff out of his car when he bends over he had onset of pressure-like chest pain. Patient reports that it feels like somebody was standing on his chest at that time. Patient reports pain lasted for approximately 2.5 hr medicines let up significantly. 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 Patient's initial workup in the emergency department unremarkable. ED provider wishes to admit patient for further evaluation and management based on his previous risk factors. Hospital Course: The patient was admitted and was monitored closely under telemetry. Cardiac enzymes were trended and cardiology was consulted. He underwent a LHC with Findings: Left main is large and normal, LAD ostial either is 20% to 30% stenosis and then proximal mid to distal is rather smaller artery with diffuse luminal irregularity and 10% disease at certain places.Ramus intermedius has a proximal stent that has about 20% ISR and then distal to the stent, there is a long segment of severe 95% to 99% stenosis, status post successful PCI as above.Left circumflex is small artery with luminal irregularities. Right coronary artery is very small diffusely diseased artery, but has MARIBEL-3 flow. He underwent Severe ramus intermedius stenosis, which is a culprit for the acute myocardial infarction, status post successful PCI The patient wants to go home and is being discharged home today in a stable condition with advice to follow up with PCP in 1 week and also with Cardiology in 1-2 weeks. He was also advised about aggressive cardiac risk factor modification and follow up in the office in 4 weeks post discharge. Vital Signs/Physical Exam: Temp Pulse Resp BP Pulse Ox 97.5 F 76 20 114/73 98 05/20/20 04:00 05/20/20 06:28 05/20/20 08:31 05/20/20 06:28 05/20/20 08:31 General: Alert, In no apparent distress HEENT: Atraumatic, Normocephalic Neck: Supple, 2+ carotid pulse no bruit Respiratory: Clear to auscultation bilaterally, Normal air movement Cardiovascular: Normal pulses, Regular rate/rhythm Capillary refill: <2 Seconds Gastrointestinal: Soft and benign Musculoskeletal: No clubbing Integumentary: No rashes Neurological: Normal speech, Normal strength at 5/5 x4 extr Lymphatics: No axilla or inguinal lymphadenopathy Laboratory Data at Discharge: WBC 4.6 K/uL (4.3-10.9) 05/19/20 05:50 Hgb 14.2 g/dL (13.6-17.9) 05/19/20 05:50 Hct 42.1 % (39.6-49.0) 05/19/20 05:50 Plt Count 187 K/uL (152-406) 05/19/20 05:50 PT 10.4 SECONDS (9.5-12.5) 05/18/20 19:55 INR 0.88 05/18/20 19:55 Sodium 136 mmol/L (136-145) 05/19/20 05:50 Potassium 4.2 mmol/L (3.5-5.1) 05/19/20 05:50 BUN 12 mg/dL (7-18) 05/19/20 05:50 Creatinine 1.08 mg/dL (0.55-1.3) 05/19/20 05:50 Glucose 231 mg/dL (74-106) H 05/19/20 05:50 Magnesium 2.0 mg/dL (1.8-2.4) 05/19/20 05:50 Total Bilirubin 0.6 mg/dL (0.2-1.0) 05/18/20 19:55 AST 24 U/L (15-37) 05/18/20 19:55 ALT 39 U/L (12-78) 05/18/20 19:55 Alkaline Phosphatase 107 U/L (45-117) 05/18/20 19:55 Troponin I 0.13 ng/mL (0.0-0.045) H 05/19/20 10:19 Triglycerides 173 mg/dL (<150) H 05/19/20 05:50 Cholesterol 239 mg/dL (<200) H 05/19/20 05:50 HDL Cholesterol 46 mg/dL (40-60) 05/19/20 05:50 Cholesterol/HDL Ratio 5.20 05/19/20 05:50 Lipase Cancelled 05/18/20 20:50 Home Medications: ALPRAZolam [Alprazolam] 2 mg PO BID 05/19/20 Aspirin Chewable [Aspirin Chewable*] 81 mg PO DAILY 05/19/20 Cyanocobalamin (Vitamin B-12) [Vitamin B-12] 1 tab PO DAILY 05/19/20 Dulaglutide [Trulicity] 0.5 ml SQ EVERY 7TH DAY 05/19/20 Hydrocodone/Acetaminophen [Hydrocodone-Acetamin 10-325 mg] 1 tab PO QID 05/19/20 Lisinopril [Zestril] 10 mg PO DAILY 05/19/20 Omeprazole 20 mg PO DAILY 05/19/20 Ranolazine [Ranolazine ER] 1,000 mg PO BID 05/19/20 Sildenafil Citrate [Viagra] 100 mg PO DAILY PRN 05/19/20 glipiZIDE [Glipizide] 5 mg PO BID 05/19/20 terbinafine HCL [Lamisil*] 250 mg PO DAILY 05/19/20 Atorvastatin Calcium [Lipitor] 40 mg PO BEDTIME #30 tab 05/20/20 Metoprolol Tartrate [Lopressor*] 12.5 mg PO BID 6AM 6PM #60 tab 05/20/20 Ticagrelor [Brilinta] 90 mg PO BID #60 tablet 05/20/20 New Medications: Ticagrelor [Brilinta] 90 mg PO BID #60 tablet Atorvastatin Calcium [Lipitor] 40 mg PO BEDTIME #30 tab Metoprolol Tartrate [Lopressor*] 12.5 mg PO BID 6AM 6PM #60 tab Followup: Gordon Angulo MD [Primary Care Provider] - 1 Week (Call to make an appointment. ) Time spent managing pt's care (in minutes): 43
[2020-05-20 09:29] VITALS: TEMP 97.4
[2020-05-20 09:57] VITALS: BP 109/63
--- NOTE | 2020-05-23 10:48 | EKG ---
Test Date: 2020-05-19 Test Time: 15:26:41 Customer Advisor Specialist: TAISHA MEASUREMENT RESULTS: Intervals: Rate: 62 FL: 140 QRSD: 126 QT: 424 QTc: 430 [place]: P: 59 FL: 140 QRS: -36 T: -17 INTERPRETIVE STATEMENTS: Normal sinus rhythm Left axis deviation Right bundle branch block Abnormal ECG Compared to ECG 05/18/2020 19:22:54 Left-axis deviation now present Sinus tachycardia no longer present Left anterior fascicular block no longer present Bifascicular block no longer present Electronically Signed On 05-23-20 10:44:07 CDT by Gordon Angulo
== END 2020-05-20 10:00 | disposition home or self-care (01) | DRG 247 ==
LOC: ER 19:11 → ERHOLD 22:01 → 2ND 22:50 → OBSVTOIN 05-20 08:54
PROVIDERS: ADMIT Family Medicine; ATTEND Family Medicine
PROC: 027034Z Dilation of Coronary Artery, One Artery with Drug-eluting Intraluminal Device, Percutaneous Approach (ICD-10-PCS; principal; 2020-05-19)
PROC: 4A023N7 Measurement of Cardiac Sampling and Pressure, Left Heart, Percutaneous Approach (ICD-10-PCS; 2020-05-19)
PROC: B2111ZZ Fluoroscopy of Multiple Coronary Arteries using Low Osmolar Contrast (ICD-10-PCS; 2020-05-19)
DX: I21.4 Non-ST elevation (NSTEMI) myocardial infarction (principal); E78.5 Hyperlipidemia, unspecified; E11.65 Type 2 diabetes mellitus with hyperglycemia; I10 Essential (primary) hypertension; G89.29 Other chronic pain; I25.110 Atherosclerotic heart disease of native coronary artery with unstable angina pectoris; M54.9 Dorsalgia, unspecified; I25.2 Old myocardial infarction; Z95.5 Presence of coronary angioplasty implant and graft; Z88.5 Allergy status to narcotic agent; Z79.82 Long term (current) use of aspirin; Z79.84 Long term (current) use of oral hypoglycemic drugs; Z79.899 Other long term (current) drug therapy; Z11.59 Encounter for screening for other viral diseases
CPT/HCPCS: 36415; 71045; 71275; 74175; 80048; 80061; 80076; 81003; 82947; 83690; 83735; 83880; 84484; 85025; 85347; 85610; 93005; 93454; 96361; 96374; 96375; 99285; C1725; C1893; C9600; G0378; J1644; J2250; J2270; J2405; J3010; J7030; Q9967; U0002

== ENCOUNTER 2020-12-31 02:39 | Inpatient (IN) | payer MEDICARE, OTHER ==
--- OUTSIDE RECORDS SUMMARY | 2020-12-31 02:42 | XMS REPORT | Continuity of Care Document ---
:1955 Author Organization [facility] t Address [address] [place] [address] Care Team Providers Name Role Phone Asked, Pcp Primary Care Physician Unavailable Problems This patient has no known problems. Allergies, Adverse Reactions, Alerts Allergy Allergy Status Severity Reaction(s) Onset Inactive Treating Comm ents Source Name Type Date Date Clinician Nusrat Prieto Active Other (See 2015-09 Walt grace ty to Comments) 10-15 Methodi adverse 00:00: st reaction 00 s to drug Social History Social Habit Start Date Stop Date Quantity Comments Source Sex Assigned At [birth year] [facility] ethodist 00:00:00 00:00:00 Medications Ordered Filled Start Stop Current Ordering [...] i tablet 14:35: mouth st 06 daily. sildenafil 2018-09 Yes 50mg Take 50 mg [...] ton 0.75 mg/0.5 2-16 under the Met hodi mL pen 14:34: skin. st injector 06 atorvastati 2018-09 Yes 80mg Take 80 mg [...] 12 14:34: mouth. st hr tablet 06 ALPRAZolam 2015-09 Yes 1{tbl} Take 1 Walt ston (XANAX) 2 1-25 tablet by Metho di MG tablet 00:00: mouth. st 00 HYDROcodone 2015-09 Yes 1{tbl} Take 1 [place] -acetaminop 1-09 tablet by Met peymani hen (NORCO) 00:00: mouth. st 10-325 mg 00 per tablet Procedures This patient has no known procedures. Plan of Care Planned Activity Planned Date Details Comments Source Future Scheduled 2020-04-29 INFLUENZA VACCINE [place] [facility] 00:00:00 [code = INFLUENZA VACCINE] Future Scheduled 2005 COLONOSCOPY SCREENING [place] [facility] 00:00:00 [code = COLONOSCOPY SCREENING] Future Scheduled 2005 SHINGLES VACCINES (#1) [facility] [facility] 00:00:00 [code = SHINGLES VACCINES (#1)] Future Scheduled 1973 Hepatitis C screening [facility] 00:00:00 (procedure) [code = 078963829] Future Scheduled 1971 COVID-19 VACCINE (1) Waltkyrie grace [facility] 00:00:00 [code = COVID-19 VACCINE (1)] Future Scheduled 1961 65+ PNEUMOCOCCAL [place] [facility] 00:00:00 VACCINE (1 of 2 - PPSV23) [code = 65+ PNEUMOCOCCAL VACCINE (1 of 2 - PPSV23)] Results This patient has no known results.
[2020-12-31 03:10] LABS: Protime INR 0.94
[2020-12-31 03:11] LABS: Absolute Lymphocytes (CBC) 1.7 K/uL (0.7-4.9); Basophils % 0.3 % (0-1.3); Hematocrit 44.8 % (39.6-49.0); Lymphocytes % 34.5 % (15.3-44.8); RBC Red Blood Cell Count 4.67 M/uL (4.33-5.43)
[2020-12-31] MEDS ORDERED: MORPHINE 4 MG/ML SYR ONE (03:13)
[2020-12-31] MEDS ORDERED: ONDANSETRON 4 MG/2 ML VIAL ONE (03:14)
[2020-12-31 03:23] LABS: Albumin 3.7 g/dL (3.4-5.0); Bilirubin Direct 0.2 mg/dL (0-0.2); Bilirubin Total 0.6 mg/dL (0.2-1.0); Magnesium 1.7 mg/dL (1.8-2.4); Protein, Total 7.9 g/dL (6.4-8.2); Troponin (Emerg Dept Use Only) 0.14 ng/mL (0.0-0.045)
--- NOTE | 2020-12-31 03:26 | EDPHYS ---
Physician Documentation [facility] Name: Yousuf Braxton Age: 65 yrs Sex: Male : 1955 Arrival Date: 12/31/2020 Time: 02:41 Bed 17 Private MD: Juan J Harris E ED Physician Flako Nix HPI: 12/31 03:12 This 65 yrs old Male presents to ER via Ambulatory with complaints of Chest tw4 Pain. 03:12 The patient or guardian reports chest pain that is located primarily in the anterior tw4 chest wall. Onset: 2 hour(s) ago. 03:32 The pain does not radiate. Associated signs and symptoms: The patient has no apparent tw4 associated signs or symptoms. The chest pain is described as a pressure. Duration: The patient or guardian reports a single episode, that is still ongoing. Modifying factors: The symptoms are alleviated by nothing. the symptoms are aggravated by nothing. Severity of pain: At its worst the pain was moderate in the emergency department the pain has resolved. The patient has not experienced similar symptoms in the past. Historical: - Allergies: 02:51 Codeine; sg - PMHx: 02:51 CAD; Diabetes - NIDDM; High Cholesterol; Hypertension; Myocardial infarction; sg Pancreatitis; - Immunization history:: Adult Immunizations up to date, Client reports receiving the 1st dose of the Covid vaccine. - Social history:: Smoking status: Patient denies any tobacco usage or history of. ROS: 03:32 Constitutional: Negative for fever, chills, and weight loss, Eyes: Negative for injury, tw4 pain, redness, and discharge, Respiratory: Negative for shortness of breath, cough, wheezing, and pleuritic chest pain, Abdomen/GI: Negative for abdominal pain, nausea, vomiting, diarrhea, and constipation, Back: Negative for injury and pain, MS/Extremity: Negative for injury and deformity, Skin: Negative for injury, rash, and discoloration. 03:32 Cardiovascular: Positive for chest pain. Exam: 03:32 Constitutional: This is a well developed, well nourished patient who is awake, alert, tw4 and in no acute distress. Head/Face: Normocephalic, atraumatic. Chest/axilla: Normal chest wall appearance and motion. Nontender with no deformity. No lesions are appreciated. Cardiovascular: Regular rate and rhythm with a normal S1 and S2. No gallops, murmurs, or rubs. Normal PMI, no JVD. No pulse deficits. Respiratory: Lungs have equal breath sounds bilaterally, clear to auscultation and percussion. No rales, rhonchi or wheezes noted. No increased work of breathing, no retractions or nasal flaring. Abdomen/GI: Soft, non-tender, with normal bowel sounds. No distension or tympany. No guarding or rebound. No evidence of tenderness throughout. Skin: Warm, dry with normal turgor. Normal color with no rashes, no lesions, and no evidence of cellulitis. MS/ Extremity: Pulses equal, no cyanosis. Neurovascular intact. Full, normal range of motion. Neuro: Awake and alert, GCS 15, oriented to person, place, time, and situation. Cranial nerves II-XII grossly intact. Motor strength 5/5 in all extremities. Sensory grossly intact. Cerebellar exam normal. Normal gait. Vital Signs: 02:48 BP 119 / 82; Pulse 89; Resp 16; Pulse Ox 99% on R/A; Pain 10/10; sg 02:48 Temp 97.8; Weight 90.72 kg; Height 5 ft. 6 in. (167.64 cm); rr5 03:35 BP 91 / 73; Pulse 86; Resp 17; Pulse Ox 97% ; rr5 03:50 Weight 90.9 kg; rr5 04:17 BP 128 / 73; Pulse 80; Resp 16; Pulse Ox 99% ; rr5 04:28 BP 100 / 72; Pulse 87; Resp 19; Pulse Ox 99% ; rr5 05:22 BP 110 / 81; Pulse 73; Resp 16; Pulse Ox 97% ; rr5 03:50 Body Mass Index 32.35 (90.90 kg, 167.64 cm) rr5 MDM: 03:12 Patient medically screened. tw4 03:36 Data reviewed: vital signs, nurses notes. 12/31 02:47 Order name: Basic Metabolic Panel; Complete Time: 03:48 12/31 02:47 Order name: CBC with Diff; Complete Time: 03:48 12/31 02:47 Order name: LFT's; Complete Time: 03:48 12/31 02:47 Order name: Magnesium; Complete Time: 03:48 tw4 12/31 02:47 Order name: NT PRO-BNP; Complete Time: 03:48 tw4 12/31 02:47 Order name: PT-INR tw4 12/31 02:47 Order name: Troponin (emerg Dept Use Only); Complete Time: 03:48 tw4 12/31 03:27 Order name: Lipase la1 12/31 03:39 Order name: Lipase; Complete Time: 03:48 EDMS 12/31 04:02 Order name: PTT, Activated Partial Thromb EDMS 12/31 05:22 Order name: SARS-COV-2 RT PCR EDMS 12/31 02:47 Order name: XRAY Chest (1 view) tw4 12/31 07:03 Order name: Urine Dipstick-Ancillary EDMS 12/31 07:21 Order name: Troponin I EDMS 12/31 07:21 Order name: Lipid Profile EDMS 12/31 07:21 Order name: T4 Free EDMS 12/31 07:21 Order name: Thyroid Stimulating Hormone EDMS 12/31 07:53 Order name: Glucose, Ancillary Testing EDMS 12/31 11:58 Order name: Glucose, Ancillary Testing EDMS 12/31 13:03 Order name: PTT, Activated Partial Thromb EDMS 12/31 13:04 Order name: Troponin I zb 12/31 13:40 Order name: Troponin I EDMS 12/31 16:40 Order name: Glucose, Ancillary Testing EDMS 12/31 02:47 Order name: EKG; Complete Time: 02:48 tw4 12/31 02:47 Order name: Cardiac monitoring; Complete Time: 02:53 tw4 12/31 02:47 Order name: EKG - Nurse/Tech; Complete Time: 02:53 tw4 12/31 02:47 Order name: IV Saline Lock; Complete Time: 02:53 tw4 12/31 02:47 Order name: Labs collected and sent; Complete Time: 02:53 tw4 12/31 02:47 Order name: O2 Per Protocol; Complete Time: 02:53 tw4 12/31 02:47 Order name: O2 Sat Monitoring; Complete Time: 02:53 tw4 EC:32 Rate is 89 beats/min. Rhythm is regular. QRS Eek is Normal. LA interval is normal. QRS tw4 interval is normal. QT interval is normal. No Q waves. T waves are Inverted in leads V1, V2. Clinical impression: NSR w/ Non-specific ST/T Changes and RBBB, LAFB. Interpreted by me. Reviewed by me. Administered Medications: 03:50 Drug: NS 0.9% 500 ml Route: IV; Rate: bolus; Site: left antecubital; rr5 05:06 Follow up: Response: No adverse reaction; IV Status: Completed infusion; IV Intake: rr5 500ml 04:16 Drug: Aspirin 162 mg {Note: VO by alexandria MIXER AND BLENDER.} Route: PO; rr5 05:05 Follow up: Response: No adverse reaction rr5 04:16 Drug: [place] (HYDROcodone-acetaminophen) 10 mg-325 mg 1 tabs {Note: rass 0 VO by Alexandria rr5 MIXER AND BLENDER.} Route: PO; 05:05 Follow up: Response: No adverse reaction; Pain is decreased; RASS: Alert and Calm (0) rr5 04:17 Drug: Heparin ([place]-Bolus No thrombolytic) - HEParin 60 units/kg {Co-Signature: sg rr5 (Hoang Pandey RN).} Route: IVP; Site: right forearm; 05:07 Follow up: Response: No adverse reaction rr5 04:17 Drug: Heparin ([place] Drip) 12 units/kg/hr - (HEParin 45207 units, D5W 500 ml) rr5 {Co-Signature: sg (Hoang Pandey RN).} Route: IV; Rate: calculated rate; Site: right forearm; 05:06 Follow up: Response: No adverse reaction; IV Status: Infusion continued upon admission; rr5 IV Intake: 20ml Disposition: 12/31/20 03:26 Hospitalization ordered by Cornell Gentile for Inpatient Admission. Preliminary diagnosis is Unstable angina. - Bed requested for Telemetry/MedSurg (Inpatient). - Status is Inpatient Admission. zb - Condition is Stable. - Problem is an ongoing problem. - Symptoms are unchanged. Signatures: Dispatcher [employer] Hoang Stockton RN RN sg Yi Benjamin ds1 Alexandria Silverio, [facility] Rebeka Phillips RN RN cg Wadley, Terrence, MD MD tw4 Yeny Cleaning Raymond, RN RN rr5 Saumya Dunn RN RN zcorinne Pandey RN sg Corrections: (The following items were deleted from the chart) 03:39 03:28 Lipase ordered. EDKY EDMS 04:02 03:31 CORONAVIRUS+MR.LAB.BRZ ordered. EDKY EDMS 04:02 03:59 PTT, ACTIVATED+COAG.LAB.BRZ ordered. EDKY EDMS 04:43 03:26 Hospitalization Ordered by Cornell Preaddisons DO for Inpatient Admission. Preliminary cg diagnosis is Unstable angina. Bed requested for Telemetry/MedSurg (Inpatient). Status is Inpatient Admission. Condition is Stable. Problem is an ongoing problem. Symptoms are unchanged. tw4 15:47 04:43 12/31/2020 03:26 Hospitalization Ordered by [facility] DO for Inpatient eb Admission. Preliminary diagnosis is Unstable angina. Bed requested for [facility] ER HOLD. Status is Inpatient Admission. Condition is Stable. Problem is an ongoing problem. Symptoms are unchanged. cg 16:25 15:47 12/31/2020 03:26 Hospitalization Ordered by [facility] DO for Inpatient ds1 Admission. Preliminary diagnosis is Unstable angina. Bed requested for Telemetry/MedSurg (Inpatient). Status is Inpatient Admission. Condition is Stable. Problem is an ongoing problem. Symptoms are unchanged. eb 16:51 16:25 12/31/2020 03:26 Hospitalization Ordered by [facility] DO for Inpatient zb Admission. Preliminary diagnosis is Unstable angina. Bed requested for Telemetry/MedSurg (Inpatient). Status is Inpatient Admission. Condition is Stable. Problem is an ongoing problem. Symptoms are unchanged. ds1
--- NOTE | 2020-12-31 03:26 | ER ---
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 Pain described as pressure that radiates to the left elbow. States hx of heart problems and was using with Cardio but now sees . pt denies fever/chills, states has received his first dose of COVID vaccine and is scheduled for the second on Thursday, December 31, 2020. Coronavirus screen: Client denies travel out of the [place] in the last 14 days. At this time, the client does not indicate any symptoms associated with coronavirus-19. Ebola Screen: Patient negative for fever greater than or equal to 101.5 degrees Fahrenheit, and additional compatible Ebola Virus Disease symptoms Patient denies exposure to infectious person. Patient denies travel to an Ebola-affected area in the 21 days before illness onset. No symptoms or risks identified at this time. Initial Sepsis Screen: Does the patient meet any 2 criteria? No. Patient's initial sepsis screen is negative. Does the patient have a suspected source of infection? No. Patient's initial sepsis screen is negative. Risk Assessment: Do you want to hurt yourself or someone else? Patient reports no desire to harm self or others. Onset of symptoms was December 31, 2020. Care prior to arrival: None. Mechanism of Injury: No Mechanism of Injury. Transition of care: patient was not received from another setting of care. 02:48 Acuity: JORDY 3 sg 02:48 Method Of Arrival: Ambulatory sg Historical: - Allergies: 02:51 Codeine; sg - PMHx: 02:51 CAD; Diabetes - NIDDM; High Cholesterol; Hypertension; Myocardial infarction; sg Pancreatitis; - Immunization history:: Adult Immunizations up to date, Client reports receiving the 1st dose of the Covid vaccine. - Social history:: Smoking status: Patient denies any tobacco usage or history of. Screenin:50 Abuse screen: Denies threats or abuse. Denies injuries from another. Nutritional rr5 screening: No deficits noted. Tuberculosis screening: No symptoms or risk factors identified. Fall Risk IV access (20 points). Total Matthews Fall Scale indicates No Risk (0-24 pts). Assessment: 03:00 General: Appears in no apparent distress. uncomfortable, Behavior is calm, cooperative, rr5 appropriate for age. 03:00 Pain: Complains of pain in chest Pain radiates to left arm Pain currently is 10 out of rr5 10 on a pain scale. Quality of pain is described as aching, Pain began gradually, Is intermittent. Neuro: Level of Consciousness is awake, alert, obeys commands, Oriented to person, place, time, situation. Cardiovascular: Reports chest pain, Capillary refill < 3 seconds Patient's skin is warm and dry. Respiratory: Airway is patent Respiratory effort is even, unlabored, Respiratory pattern is regular, symmetrical. GI: Reports nausea. : No signs and/or symptoms were reported regarding the genitourinary system. EENT: No signs and/or symptoms were reported regarding the EENT system. Derm: Skin is intact, is healthy with good turgor, Skin temperature is warm. Musculoskeletal: Capillary refill < 3 seconds. 03:34 Reassessment: Patient appears in no apparent distress at this time. Patient is alert, rr5 oriented x 3, equal unlabored respirations, skin warm/dry/pink. hospitalist at bedside, for admission. 04:40 Reassessment: Patient appears in no apparent distress at this time. no signs of rr5 bleeding, ongoing heparin drip. 05:00 Reassessment: Patient appears in no apparent distress at this time. Patient is alert, rr5 oriented x 3, equal unlabored respirations, skin warm/dry/pink. admitted as ER hold. Vital Signs: 02:48 BP 119 / 82; Pulse 89; Resp 16; Pulse Ox 99% on R/A; Pain 10/10; sg 02:48 Temp 97.8; Weight 90.72 kg; Height 5 ft. 6 in. (167.64 cm); rr5 03:35 BP 91 / 73; Pulse 86; Resp 17; Pulse Ox 97% ; rr5 03:50 Weight 90.9 kg; rr5 04:17 BP 128 / 73; Pulse 80; Resp 16; Pulse Ox 99% ; rr5 04:28 BP 100 / 72; Pulse 87; Resp 19; Pulse Ox 99% ; rr5 05:22 BP 110 / 81; Pulse 73; Resp 16; Pulse Ox 97% ; rr5 03:50 Body Mass Index 32.35 (90.90 kg, 167.64 cm) rr5 ED Course: 02:41 Patient arrived in ED. es 02:41 Juan J Harris MD is Private Physician. es 02:46 Flako Nix MD is Attending Physician. tw4 02:50 Triage completed. sg 02:50 EKG done, by ED staff, reviewed by Flako Nix MD. rr5 02:51 Arm band placed on. sg 02:53 Initial lab(s) drawn, by me, sent to lab. Inserted saline lock: 20 gauge in left em antecubital area, using aseptic technique. Blood collected. Patient maintains SpO2 saturation greater than 95% on room air. 02:54 Casa Mcpherson RN is Primary Nurse. rr5 02:55 Patient has correct armband on for positive identification. Bed in low position. Call rr5 light in reach. therapeutic consultant on. Pulse ox on. NIBP on. 03:26 Cornell Gentile DO is Hospitalizing Provider. tw4 03:29 XRAY Chest (1 view) In Process Unspecified. EDMS 04:10 Inserted saline lock: 20 gauge in right forearm, using aseptic technique. rr5 05:22 No provider procedures requiring assistance completed. Patient admitted, IV remains in rr5 place. intact, No redness/swelling at site. Administered Medications: 03:50 Drug: NS 0.9% 500 ml Route: IV; Rate: bolus; Site: left antecubital; rr5 05:06 Follow up: Response: No adverse reaction; IV Status: Completed infusion; IV Intake: rr5 500ml 04:16 Drug: Aspirin 162 mg {Note: VO by alexandria CCO.} Route: PO; rr5 05:05 Follow up: Response: No adverse reaction rr5 04:16 Drug: [place] (HYDROcodone-acetaminophen) 10 mg-325 mg 1 tabs {Note: rass 0 VO by Alexandria quesada CCO.} Route: PO; 05:05 Follow up: Response: No adverse reaction; Pain is decreased; RASS: Alert and Calm (0) rr5 04:17 Drug: Heparin ([place]-Bolus No thrombolytic) - HEParin 60 units/kg {Co-Signature: tootie rr5 (Hoang Pandey RN).} Route: IVP; Site: right forearm; 05:07 Follow up: Response: No adverse reaction rr5 04:17 Drug: Heparin ([place] Drip) 12 units/kg/hr - (HEParin 71290 units, D5W 500 ml) rr5 {Co-Signature: sg (Hoang Pandey RN).} Route: IV; Rate: calculated rate; Site: right forearm; 05:06 Follow up: Response: No adverse reaction; IV Status: Infusion continued upon admission; rr5 IV Intake: 20ml Intake: 05:06 IV: 500ml; Total: 500ml. rr5 05:06 IV: 20ml; Total: 520ml. rr5 Outcome: 03:26 Decision to Hospitalize by Provider. tw4 05:22 Admitted to ER Hold. [facility]. rr5 05:22 Condition: stable 05:22 Instructed on the need for admit. 16:51 Patient left the ED. warnerb Signatures: Dispatcher [employer] Hoang Stockton, RN Dulce Maria Georges Edgar RN Flako Loco MD MD tw4 Casa Mcpherson RN RN rr5 Saumya Dunn RN RN zb Hoang sommers
[2020-12-31] MEDS ORDERED: NA CHLORIDE 0.9% 500 ML ONE (03:54)
[2020-12-31] MEDS ORDERED: HEPARIN 5000 UNIT/ML 1 ML VIAL ONE (04:12)
[2020-12-31] MEDS ORDERED: HEPARIN/D5W 25,000 UNIT/500 ML BAG IV ONE (04:12)
[2020-12-31] MEDS ORDERED: ASPIRIN 81 MG CHEWABLE TABLET ONE (04:12)
[2020-12-31] MEDS ORDERED: HYDROCODONE/APAP 10/325 TAB ONE (04:12)
[2020-12-31 04:55] VITALS: BMI 32.3
[2020-12-31] MEDS ORDERED: ONDANSETRON 4 MG/2 ML VIAL IV PRN (05:10)
[2020-12-31] MEDS ORDERED: HEPARIN/D5W 25,000 UNIT/500 ML BAG IV SCH (05:10)
--- NOTE | 2020-12-31 05:16 | P.HP ---
Certification for Inpatient Patient admitted to: Inpatient With expected LOS: >2 Midnights Patient will require the following post-hospital care: None Practitioner: I am a practitioner with admitting privileges, knowledge of patient current condition, hospital course, and medical plan of care. Services: Services provided to patient in accordance with Admission requirements found in Title 42 Section 412.3 of the Code of Federal Regulations Patient History Date of Service: 12/31/20 Primary Care Provider: Dr. Harris Reason for admission: NSTEMI History of Present Illness: 65-year-old male with history of CAD with stenting/balloon angioplasty, diabetes mellitus type 2, hypertension, hyperlipidemia, pancreatitis presents emergency department for chest pain. Patient reports that he was sitting down watching TV when he began having a sharp/tight substernal chest pain radiating to left arm, pain was constant lasted approximately 3-4 hr until he was given morphine in the emergency department which did help to relieve his pain. Patient was seen here in April of last year for NSTEMI and had intervention including PCI of the ramus intermedius, patient takes brillintaand aspirin at home. EKG significant for bifascicular block which patient has had in the past. Labs initially significant for troponin 0.14, magnesium 1.7 BNP 310 glucose 213. Case was discussed with cardiology who recommend admission, heparin drip, trending troponins and will see patient today. Patient's pain has improved significantly upon arrival to the emergency Allergies codeine [Codeine] Allergy (Intermediate, Verified 05/19/20 01:10) Hives/Rash Home Medications: ALPRAZolam [Alprazolam] 2 mg PO BID 05/19/20 Aspirin Chewable [Aspirin Chewable*] 81 mg PO DAILY 05/19/20 Cyanocobalamin (Vitamin B-12) [Vitamin B-12] 1 tab PO DAILY 05/19/20 Dulaglutide [Trulicity] 0.5 ml SQ EVERY 7TH DAY 05/19/20 Hydrocodone/Acetaminophen [Hydrocodone-Acetamin 10-325 mg] 1 tab PO QID 05/19/20 Lisinopril [Zestril] 10 mg PO DAILY 05/19/20 Omeprazole 20 mg PO DAILY 05/19/20 Ranolazine [Ranolazine ER] 1,000 mg PO BID 05/19/20 Sildenafil Citrate [Viagra] 100 mg PO DAILY PRN 05/19/20 glipiZIDE [Glipizide] 5 mg PO BID 05/19/20 terbinafine HCL [Lamisil*] 250 mg PO DAILY 05/19/20 Atorvastatin Calcium [Lipitor] 40 mg PO BEDTIME #30 tab 05/20/20 Metoprolol Tartrate [Lopressor*] 12.5 mg PO BID 6AM 6PM #60 tab 05/20/20 Ticagrelor [Brilinta] 90 mg PO BID #60 tablet 05/20/20 - Past Medical/Surgical History Has patient received pneumonia vaccine in the past: Yes Diabetic: Yes -: CAD -: Diabetes -: HTN -: IN -: Pancreatitis -: HLD -: Angioplasty -: Heart stent x3 -: R ankle sx Psychosocial/ Personal History: Patient lives at home alone. - Family History Father Notes: parkinsons, dementia Mother -: Lung disease - Social History Smoking Status: Unknown if ever smoked Alcohol use: Yes CD- Drugs: No Caffeine use: Yes Place of Residence: Home Review of Systems 10-point ROS is otherwise unremarkable Respiratory: Shortness of Breath Cardiovascular: Chest Pain Physical Examination - Physical Exam General: Alert, In no apparent distress HEENT: Atraumatic, PERRLA, Mucous membr. moist/pink Neck: Supple, 2+ carotid pulse no bruit, No LAD Respiratory: Clear to auscultation bilaterally, Normal air movement Cardiovascular: Regular rate/rhythm, Normal S1 S2 Gastrointestinal: Normal bowel sounds, No tenderness Musculoskeletal: No tenderness Integumentary: No rashes Neurological: Normal speech, Normal strength at 5/5 x4 extr, Normal tone, Normal affect - Studies Laboratory Data (last 24 hrs) 12/31/20 03:59: APTT Cancelled 12/31/20 03:27: Lipase Cancelled 12/31/20 02:50: PT 10.8, INR 0.94, APTT 27.6 12/31/20 02:50: WBC 5.00, Hgb 15.2, Hct 44.8, Plt Count 159 12/31/20 02:50: Sodium 135 L, Potassium 4.0, BUN 12, Creatinine 1.23, Glucose 213 H, Magnesium 1.7 L, Total Bilirubin 0.6, AST 19, ALT 33, Alkaline Phosphatase 75, Lipase 183 Assessment and Plan - Plan Assessment ACS, NSTEMI with history of CAD with previous stents/angioplasty Hypertension Hyperlipidemia Diabetes mellitus type 2 History of pancreatitis Plan ACS, NSTEMI with history of CAD with previous stents/angioplasty: Chest pain has improved, case discussed cardiology. Continue with heparin drip, p.r.n. morphine/nitroglycerin with parameters for blood pressure. Continue aspirin therapy monitor on telemetry, trend troponins. Hypertension: Blood pressure soft at this time, will hold blood pressure medications. Hyperlipidemia: Continue statin therapy. Diabetes mellitus type 2: A.c. HS Accu-Cheks, sliding scale insulin therapy. A1c with labs tomorrow. History of pancreatitis: Lipase normal. Discharge Plan: Home Plan to discharge in: Greater than 2 days - Advance Directives Does patient have a Living Will: No Does patient have a Durable POA for Healthcare: No - Code Status/Comfort Care Code Status Assessed: Yes Critical Care: Yes Time Spent Managing Pts Care (In Minutes): 55
[2020-12-31] MEDS ORDERED: MAGNESIUM SULFATE 1 gm IVPB 1 GM/100 ML BAG IV ONE ×2 (05:47→06:01)
[2020-12-31] MEDS: NA CHLORIDE 0.9% 1,000 ML IV SCH ×2 (05:58→15:10)
[2020-12-31] MEDS ORDERED: NA CHLORIDE 0.9% 1,000 ML ONE (06:06)
[2020-12-31] MEDS: MORPHINE 2 MG/ML SYR IV PRN ×4 (06:50→19:10)
[2020-12-31 07:02] LABS: Urine Blood Negative (Negative); Urine Glucose 1+ (Negative); Urine Protein Negative (Negative); Urine pH 5.5 (5.0-7.0)
[2020-12-31] MEDS ORDERED: MORPHINE 2 MG/ML SYR ONE ×3 (07:02→15:27)
[2020-12-31 07:20] LABS: Thyroid Stimulating Hormone 2.31 uIU/mL (0.360-3.740); Troponin I 0.48 ng/mL (0.0-0.045)
[2020-12-31] MEDS: INSULIN -REGULAR HUMAN 50 UNIT/0.5 ML ML SQ SCH ×4 (07:30→20:51)
[2020-12-31] MEDS ORDERED: PNEUMOCOCCAL VACCINE 0.5 ML IMVAC ONE (08:00)
[2020-12-31] MEDS: TICAGRELOR 90 MG TABLET PO SCH ×2 (09:00→20:51)
[2020-12-31] MEDS: ASPIRIN EC 81 MG TAB PO SCH (09:00)
[2020-12-31] MEDS: NITROGLYCERIN 0.4 MG/TAB SL PRN (09:40)
[2020-12-31] MEDS ORDERED: TICAGRELOR 90 MG TABLET PO ONE (09:53)
[2020-12-31] MEDS ORDERED: ASPIRIN EC 81 MG TAB PO ONE (09:53)
[2020-12-31] MEDS ORDERED: NITROGLYCERIN 0.4 MG/TAB SL ONE (09:53)
--- NOTE | 2020-12-31 09:59 | RAD REPORT ---
EXAM DESCRIPTION: RAD - Chest Single View - 12/31/2020 3:29 am CLINICAL HISTORY: CHEST PAIN Chest pain. COMPARISON: Chest Single View dated 05/18/2020; Chest Single View dated 02/22/2020; Chest Single View dated 07/08/2019; Chest Single View dated 07/09/2018 FINDINGS: Portable technique limits examination quality. The lungs are grossly clear. The heart is upper limit of normal in size. No displaced fractures. IMPRESSION: No acute intrathoracic process suspected.
--- NOTE | 2020-12-31 10:22 | P.PN ---
Subjective Date of Service: 12/31/20 Primary Care Provider: Dr. Harris Chief Complaint: NSTEMI Subjective: Improving (Doing well. No chest pain or SOB.) Physical Examination - Vital Signs Blood Pressure: 131/85 Pulse: 70 Respirations: 16 Pulse Ox (%): 98 - Studies Laboratory Data (last 24 hrs) 12/31/20 03:59: APTT Cancelled 12/31/20 03:27: Lipase Cancelled 12/31/20 02:50: PT 10.8, INR 0.94, APTT 27.6 12/31/20 02:50: WBC 5.00, Hgb 15.2, Hct 44.8, Plt Count 159 12/31/20 02:50: Sodium 135 L, Potassium 4.0, BUN 12, Creatinine 1.23, Glucose 213 H, Magnesium 1.7 L, Total Bilirubin 0.6, AST 19, ALT 33, Alkaline Phosphatase 75, Lipase 183 Assessment & Plan Discharge Plan: Home Plan to discharge in: 24 Hours Physician Review Additional Text: Physical exam: Patient alert, cooperative. No significant distress noted. No chest pain or shortness of breath. Heart: Regular rate and rhythm Lungs: Clear to auscultation Abdomen: Soft nontender nondistended Extremities: Good range of motion. No focal deficits. No edema noted. Impression: Chest pain secondary to NSTEMI with history of CAD with previous stents/angioplasty Hypertension Hyperlipidemia Diabetes mellitus type 2 History of pancreatitis Acute renal insufficiency likely dehydration Plan Chest pain secondary to NSTEMI with history of CAD with previous stents/angioplasty: Continue to monitor the patient on telemetry and cardiac enzymes. Chest pain resolved. Cardiology consulted. Await further recommendations. Continue aspirin, heparin drip, Brilinta, Lipitor, and metoprolol. Anticipate need for heart catheterization tomorrow. Will discuss further with cardiology. I will turn the service over to the hospice team tomorrow. I will go over the plan of care with him. Hypertension: Blood pressure improved. Restart metoprolol. Parameters in place. Continue IV fluids. Hyperlipidemia: LDL reviewed. Increase Lipitor to 80 mg daily. Diabetes mellitus type 2: A.c. HS Accu-Cheks, sliding scale insulin therapy. Will obtain A1c. History of pancreatitis: Lipase normal. Acute renal insufficiency likely dehydration: Continue IV fluids. Monitor lab closely. Time Spent Managing Pts Care (In Minutes): 55
[2020-12-31] MEDS: METOPROLOL TAR 25 MG TAB PO SCH (18:00)
[2020-12-31] MEDS: HYDROCODONE/APAP 7.5/325 MG TAB PO PRN (18:14)
--- NOTE | 2020-12-31 19:32 | CON ---
Date of Consultation: 12/31/2020 Reason For Consultation: Non-STEMI. History Of Present Illness: This is a 65-year-old male with history of coronary artery disease statu s post recent PCI, history of diabetes, hypertension, dyslipidemia, presented with chest pain [place] the [place]. Severe pain that forced him to rest and then he had another episo de yesterday, so presented to the emergency room. The patient continuous to have on and off chest pa in, but at the present time is pain free. No diaphoresis. No nausea or vomiting. No other complain ts. Past Medical History: As outlined above in the HPI. Medications: Refer to reconciliation sheet for detailed list. The patient is on Brilinta and aspiri n and takes it on a regular basis. Allergies: CODEINE. Social History: Does not smoke or drink. Does not use any drugs. Family History: No premature coronary artery disease or cancer. Review of Systems: All systems are reviewed and they were negative except what is mentioned in the HPI. Physical Examination: Vital Signs: Temperature is 98.4, pulse is 74, breathing 16, blood pressure 116/70 saturating 100%. General: A pleasant, middle-aged male, in no distress. Head and Neck: Pupils are equal, reactive to light. Intact eye movements. No JVD. No cervical lym phadenopathy. Neck: Supple. Thyroid is not enlarged. Lungs: Clear to auscultation bilaterally. No rhonchi, rales, or crackles no accessory muscle use. Heart: Regular rate and rhythm. No extra sounds. Abdomen: Soft, nontender. Bowel sounds positive. No organomegaly. No masses or hernia. No rigidi ty or rebound. Extremities: No edema. No clubbing or cyanosis. Intact pulses. Skin: No rashes. Neurologic: Alert, awake, oriented x3. No acute focal deficits appreciated. Lymph nodes: No cervical adenopathy Investigations: Troponin peaked at 0.92 down to 0.48. Creatinine is 1.23, hemoglobin 15.2. EKG wit hout acute specific abnormality. Assessment/plan: 1.Non-ST elevation myocardial infarction. Recommend anticoagulation with IV heparin drip. Keep n.p .o. past midnight for coronary angiogram in the morning. Continue Brilinta and aspirin. Plan high-d ose statin. We will obtain echocardiogram in the morning. Please keep the patient n.p.o. past [facility] for coronary angiogram in the morning. Use nitroglycerin patch 1 inch to upper chest wall q.8 ho urs for chest pain control. 2.Dyslipidemia. Continue Lipitor 80 mg. Thank you for the consult. /BRUNA Voice ID: [id number] Report ID: [id number]
[2020-12-31] MEDS: ATORVASTATIN 80 MG TAB PO SCH (20:51)
[2020-12-31] MEDS ORDERED: ATORVASTATIN 20 MG TAB PO SCH (21:00)
[2020-12-31] MEDS: FENTANYL CITR 100 MCG/2 ML IV PRN (21:59)
[2021-01-01] MEDS: NA CHLORIDE 0.9% 1,000 ML IV SCH ×3 (01:10→10:28)
[2021-01-01] MEDS: FENTANYL CITR 100 MCG/2 ML IV PRN ×4 (02:47→21:07)
[2021-01-01] MEDS: NITROGLYCERIN 0.4 MG/TAB SL PRN (03:04)
[2021-01-01] MEDS: HYDROCODONE/APAP 7.5/325 MG TAB PO PRN (05:28)
[2021-01-01] MEDS ORDERED: NA CHLORIDE 0.9% 500 ML IV ONE (05:33)
[2021-01-01 06:15] LABS: Absolute Lymphocytes (CBC) 1.8 K/uL (0.7-4.9); Basophils % 0.6 % (0-1.3); Lymphocytes % 38.3 % (15.3-44.8); MPV 8.8 fL (7.6-11.3); RBC Red Blood Cell Count 3.89 M/uL (4.33-5.43)
[2021-01-01 06:33] LABS: Albumin 2.9 g/dL (3.4-5.0); Bilirubin Total 0.7 mg/dL (0.2-1.0); Magnesium 1.8 mg/dL (1.8-2.4); Potassium 4.7 mmol/L (3.5-5.1); Protein, Total 6.2 g/dL (6.4-8.2)
[2021-01-01] MEDS: ASPIRIN EC 81 MG TAB PO SCH (06:38)
[2021-01-01] MEDS: TICAGRELOR 90 MG TABLET PO SCH ×2 (06:38→21:07)
[2021-01-01] MEDS: METOPROLOL TAR 25 MG TAB PO SCH ×2 (06:38→18:00)
[2021-01-01] MEDS: INSULIN -REGULAR HUMAN 50 UNIT/0.5 ML ML SQ SCH ×4 (07:30→21:00)
[2021-01-01] MEDS ORDERED: FENTANYL CITR 100 MCG/2 ML ONE ×2 (11:31→11:47)
[2021-01-01] MEDS ORDERED: NITROGLYCERIN 100 MCG/ML SYR (for cath lab use only) IV ONE ×2 (11:31→11:47)
[2021-01-01] MEDS ORDERED: MIDAZOLAM HCL 2 MG/2 ML INJ ONE ×2 (11:31→11:46)
[2021-01-01] MEDS ORDERED: VERAPAMIL HCL 10 MG/4 ML VIAL IV ONE ×2 (11:31→11:47)
[2021-01-01] MEDS ORDERED: NITROGLYCERIN/D5W 25 MG/250 ML BTL IV ONE (11:32)
[2021-01-01] MEDS ORDERED: ATROPINE SULF 1 MG/10 ML SYR IV ONE ×2 (11:32→11:47)
[2021-01-01] MEDS ORDERED: HEPARIN 5000 UNIT/ML 1 ML VIAL ONE ×2 (11:32→11:46)
[2021-01-01] MEDS ORDERED: NITROGLYCERIN/D5W 0 MG/0 ML BTL IV ONE (11:47)
[2021-01-01] MEDS ORDERED: HEPA 1000U/500MLS 3,000 UNIT/1,500 ML BAG IV ONE (12:00)
[2021-01-01] MEDS ORDERED: NA CHLORIDE 0.9% 500 ML ONE (12:03)
[2021-01-01] MEDS ORDERED: ACETAMINOPHEN 325 MG TABLET PO PRN (14:26)
[2021-01-01] MEDS ORDERED: NA CHLORIDE 0.9% 1,000 ML IV PRN (14:28)
[2021-01-01] MEDS: ATORVASTATIN 80 MG TAB PO SCH (21:07)
--- NOTE | 2021-01-01 22:37 | OP ---
Date of Procedure: 01/01/2021 Surgeon: DIANA PRAJAPATI Procedure Performed: 1.Selective coronary angiogram. 2.Left heart catheterization. 3.Balloon angioplasty of severe mid ramus intermedius ISR, which is a culprit for the OK using 2.75 x 50 mm NC balloon. 4.PCI of the RCA proximal severe stenosis using 2.75 x 28 mm Synergy drug-eluting stent inflated to high pressure. Access Site: Radial artery 6-Albanian closed with TR band. Indication: Non-ST elevation myocardial infarction. Complications: None. Bleeding: Less than 10 mL. Description Of Procedure: After risks, benefits, and alternatives were explained, the patient agreed to procedure and signed informed consent. The patient was brought into the cardiac catheterization laboratory, prepped and draped in usual sterile fashion. Accessed right radial artery using pediatric micropuncture kit and placed a 6-Albanian slender sheath and took a 5-Albanian [place] 4.0 catheter into the aortic root, engaged left main and right coronary artery, took standard views. Intervention Details: We gave systemic heparin to assure ACT level above 250 and then we took 6-Fren ch EBU 3.5 guide into the aortic root, engaged left main, took run-through wire into the ramus interm edius across the stenotic area and used a 2.75 x 50 mm NC balloon to dilate the ISR area with 0% resi dual stenosis and excellent results, no complications. Then, we took an EBU guide out and exchanged for a 6-Albanian JR4 guide, engaged the right coronary artery, took short run-through wire through the right coronary artery and then pre-dilated the lesion and then placed a 2.75 x 28 mm stent to cover 2 areas of stenosis, the one proximal to stent and one distal to the stent with excellent results and MARIBEL-3 flow. I then removed the wires and the guide out and the sheath and placed TR band with good hemostasis. Findings: 1.Left main, moderate size, no significant disease. 2.LAD, moderate size with mid diffuse 20% to 30% stenosis. 3.Left circumflex, small. 4.Ramus intermedius or high OM has severe mid ISR stenosis 99%, status post successful balloon angio plasty as above. 5.RCA has proximal 99% stenosis and proximal stent that is patent. Distal to the stent, there is 80 % stenosis. We used 2.75 x 28 mm stent to cover the whole area of the stent with excellent results. Conclusion: 1.Severe ramus intermedius in-stent restenosis, which is a culprit status post balloon angioplasty a s above. 2.Severe proximal RCA stenosis and mid RCA stenosis, status post PCI as above. Plan: Brilinta, aspirin, high-dose statin, and lifestyle modification. SR/MODL Voice ID: [id number] Report ID: [id number]
[2021-01-02] MEDS: HYDROCODONE/APAP 7.5/325 MG TAB PO PRN ×2 (01:35→08:30)
[2021-01-02] MEDS: FENTANYL CITR 100 MCG/2 ML IV PRN ×4 (01:35→14:00)
[2021-01-02 05:03] VITALS: O2SAT 98
[2021-01-02] MEDS: METOPROLOL TAR 25 MG TAB PO SCH (05:44)
[2021-01-02 06:11] LABS: Albumin 2.8 g/dL (3.4-5.0); Bilirubin Total 0.7 mg/dL (0.2-1.0); Magnesium 1.7 mg/dL (1.8-2.4); Potassium 4.2 mmol/L (3.5-5.1)
[2021-01-02 06:33] LABS: Absolute Lymphocytes (CBC) 1.1 K/uL (0.7-4.9); Basophils % 0.6 % (0-1.3); Hematocrit 35.8 % (39.6-49.0); Lymphocytes % 27.6 % (15.3-44.8); MPV 9.4 fL (7.6-11.3); RBC Red Blood Cell Count 3.71 M/uL (4.33-5.43)
[2021-01-02] MEDS: NA CHLORIDE 0.9% 1,000 ML IV SCH (07:16)
[2021-01-02] MEDS: INSULIN -REGULAR HUMAN 50 UNIT/0.5 ML ML SQ SCH ×2 (07:30→11:30)
[2021-01-02] MEDS: ASPIRIN EC 81 MG TAB PO SCH (08:29)
[2021-01-02] MEDS: TICAGRELOR 90 MG TABLET PO SCH (08:29)
[2021-01-02] MEDS ORDERED: MAGNESIUM SULFATE 1 gm IVPB 1 GM/100 ML BAG IV ONE (09:00)
[2021-01-02 13:46] VITALS: BP 116/59; TEMP 97.2
--- NOTE | 2021-01-10 06:04 | P.PN ---
Subjective Date of Service: 01/01/21 Patient scheduled for cardiac catheterization today. Otherwise, no new complaints. Denies chest pain. Review of Systems 10-point ROS is otherwise unremarkable Physical Examination - Vital Signs Temperature: 97.2 F Blood Pressure: 116/59 Pulse: 67 Respirations: 18 Pulse Ox (%): 98 - Physical Exam General: Alert, In no apparent distress, Oriented x3 HEENT: Atraumatic, PERRLA, EOMI Neck: Supple, JVD not distended Respiratory: Clear to auscultation bilaterally, Normal air movement Cardiovascular: Regular rate/rhythm, Normal S1 S2 Gastrointestinal: Normal bowel sounds, No tenderness Musculoskeletal: No tenderness Integumentary: No rashes Neurological: Normal speech, Normal tone, Normal affect Lymphatics: No axilla or inguinal lymphadenopathy - Studies Medications List Reviewed: Yes Assessment & Plan - Problems (Diagnosis) (1) Non-STEMI (non-ST elevated myocardial infarction) Status: Acute (2) Chest pain, rule out acute myocardial infarction Status: Acute (3) Coronary artery disease Status: Acute (4) History of hypertension Status: Acute (5) Type 2 diabetes mellitus Status: Acute - Plan Plan: - Serial troponins and EKG - Appreciate Cardiology consultation - Cardiac catheterization at this time - Anti-platelet therapy, anti coagulation, beta-karl, statin, and O2 as needed - IV morphine for pain - Nitro p.r.n. Discharge Plan: Home Plan to discharge in: Greater than 2 days - Advance Directives Does patient have a Living Will: No Does patient have a Durable POA for Healthcare: No - Code Status/Comfort Care Code Status Assessed: Yes Code Status: Full Code Critical Care: No Time Spent Managing PTS Care (In Minutes): 45
--- NOTE | 2021-01-10 06:07 | P.DS ---
Discharge Date: 01/02/21 Primary Care Provider: Dr. Harris Disposition: ROUTINE DISCHARGE Discharge Condition: GOOD Reason for Admission: NSTEMI Consultations: Cardiology - Problems (1) Non-STEMI (non-ST elevated myocardial infarction) Status: Acute (2) Chest pain, rule out acute myocardial infarction Status: Acute (3) Coronary artery disease Status: Acute (4) History of hypertension Status: Acute (5) Type 2 diabetes mellitus Status: Acute Brief History of Present Illness: Patient is a 65-year-old gentleman who came into the hospital with chest pain. Patient was found have a non-STEMI. Patient came into the hospital for further evaluation. We will continue with antiplatelet therapy, statin therapy, and anticoagulation. Patient will be evaluated by cardiology. Hospital Course: . Cardiac catheterization revealed multiple abnormalities. Patient had an angioplasty performed as well as stent placement. Patient will continue on antiplatelet therapy and statin therapy along with close outpatient followup with cardiology. Vital Signs/Physical Exam: Temp Pulse Resp BP Pulse Ox 97.2 F 67 18 116/59 L 98 01/10/21 06:04 01/10/21 06:04 01/10/21 06:04 01/10/21 06:04 01/10/21 06:04 General: Alert, In no apparent distress, Oriented x3 Laboratory Data at Discharge: WBC 3.90 K/uL (4.3-10.9) L D 01/02/21 05:12 Hgb 12.0 g/dL (13.6-17.9) L 01/02/21 05:12 Hct 35.8 % (39.6-49.0) L 01/02/21 05:12 Plt Count 110 K/uL (152-406) L 01/02/21 05:12 PT 10.8 SECONDS (9.5-12.5) 12/31/20 02:50 INR 0.94 12/31/20 02:50 APTT 83.7 SECONDS (24.3-36.9) H 01/01/21 11:54 Sodium 141 mmol/L (136-145) 01/02/21 05:12 Potassium 4.2 mmol/L (3.5-5.1) 01/02/21 05:12 BUN 14 mg/dL (7-18) 01/02/21 05:12 Creatinine 1.00 mg/dL (0.55-1.3) 01/02/21 05:12 Glucose 151 mg/dL (74-106) H 01/02/21 05:12 Magnesium 1.7 mg/dL (1.8-2.4) L 01/02/21 05:12 Total Bilirubin 0.7 mg/dL (0.2-1.0) 01/02/21 05:12 AST 23 U/L (15-37) 01/02/21 05:12 ALT 25 U/L (12-78) 01/02/21 05:12 Alkaline Phosphatase 54 U/L (45-117) 01/02/21 05:12 Troponin I 0.48 ng/mL (0.0-0.045) H 12/31/20 Unknown Triglycerides 129 mg/dL (<150) 12/31/20 Unknown Cholesterol 197 mg/dL (<200) 12/31/20 Unknown HDL Cholesterol 65 mg/dL (40-60) H 12/31/20 Unknown Cholesterol/HDL Ratio 3.03 12/31/20 Unknown Lipase Cancelled 12/31/20 03:27 Home Medications: ALPRAZolam [Alprazolam] 2 mg PO BID 05/19/20 Aspirin Chewable [Aspirin Chewable*] 81 mg PO DAILY 05/19/20 Dulaglutide [Trulicity] 0.5 ml SQ EVERY 7TH DAY 05/19/20 Hydrocodone/Acetaminophen [Hydrocodone-Acetamin 10-325 mg] 1 tab PO QID 05/19/20 Lisinopril [Zestril] 10 mg PO DAILY 05/19/20 Omeprazole 20 mg PO DAILY PRN 05/19/20 Ranolazine [Ranolazine ER] 1,000 mg PO BID 05/19/20 glipiZIDE [Glipizide] 10 mg PO DAILY 05/19/20 Ticagrelor [Brilinta*] 90 mg PO BID #60 tablet 05/20/20 Metoprolol Tartrate [Lopressor*] 12.5 mg PO BID 6AM 6PM 12/31/20 Atorvastatin Calcium [Lipitor] 80 mg PO BEDTIME #30 tab 01/02/21 Hydrocodone 7.5/APAP 325 [[place] 7.5/325 mg*] 1 tab PO Q6H PRN #30 tab 01/02/21 New Medications: Atorvastatin Calcium [Lipitor] 80 mg PO BEDTIME #30 tab Hydrocodone 7.5/APAP 325 [[place] 7.5/325 mg*] 1 tab PO Q6H PRN #30 tab PRN Reason: Pain Scale 5-7 (Moderate) Physician Discharge Instructions: OK TO DC IV AND DC HOME FOLLOW-UP WITH PCP IN 1-2 WEEKS CALL ME AT [phone] IF ANY QUESTIONS REGARDING HOSPITAL STAY RETURN TO THE ER IF SYMPTOMS WORSENS FOLLOW-UP WITH CARDIOLOGY IN 1-2 WEEKS Diet: AHA Activity: Fall precautions Followup: Gordon Angulo MD [ACTIVE - CAN ADMIT] - Juan J Harris MD [Primary Care Provider] - Time spent managing pt's care (in minutes): 35
== END 2021-01-02 15:01 | disposition home or self-care (01) | DRG 247 ==
LOC: ER 02:39 → ERHOLD 04:30 → 2ND 16:26
PROVIDERS: ADMIT Family Medicine; ATTEND Hospitalist
PROC: 027034Z Dilation of Coronary Artery, One Artery with Drug-eluting Intraluminal Device, Percutaneous Approach (ICD-10-PCS; principal; 2021-01-01)
PROC: 02703ZZ Dilation of Coronary Artery, One Artery, Percutaneous Approach (ICD-10-PCS; 2021-01-01)
PROC: 4A023N7 Measurement of Cardiac Sampling and Pressure, Left Heart, Percutaneous Approach (ICD-10-PCS; 2021-01-01)
PROC: B2111ZZ Fluoroscopy of Multiple Coronary Arteries using Low Osmolar Contrast (ICD-10-PCS; 2021-01-01)
DX: I21.4 Non-ST elevation (NSTEMI) myocardial infarction (principal); E11.9 Type 2 diabetes mellitus without complications; I10 Essential (primary) hypertension; I25.2 Old myocardial infarction; N28.9 Disorder of kidney and ureter, unspecified; E86.0 Dehydration; I25.10 Atherosclerotic heart disease of native coronary artery without angina pectoris; E78.5 Hyperlipidemia, unspecified; Z88.5 Allergy status to narcotic agent; Z79.82 Long term (current) use of aspirin; Z79.84 Long term (current) use of oral hypoglycemic drugs; Z79.899 Other long term (current) drug therapy; Z95.5 Presence of coronary angioplasty implant and graft; Z60.2 Problems related to living alone; Z20.822 Contact with and (suspected) exposure to COVID-19
CPT/HCPCS: 36415; 71045; 80048; 80053; 80061; 80076; 81003; 82947; 83036; 83690; 83735; 83880; 84439; 84443; 84484; 85025; 85347; 85610; 85730; 93005; 93458; 96365; 99285; C1725; C1893; C9600; J1644; J2250; J2270; J2405; J3010; J3475; J7030; J7040; U0003

== ENCOUNTER 2022-06-20 11:21 | Inpatient (IN) | payer OTHER ==
--- OUTSIDE RECORDS SUMMARY | 2022-06-20 11:26 | XMS REPORT | Continuity of Care Document ---
:1955 Author Organization [facility] t Address [address] [place] [address] Care Team Providers Name Role Phone Asked, No Pcp Primary Care Physician Unavailable Problems This patient has no known problems. Allergies, Adverse Reactions, Alerts Allergy Allergy Status Severity Reaction(s) Onset Inactive Treating Comm ents Source Name Type Date Date Clinician Nusrat Prieto Active Other (See 2015-09 Met mary ty to Comments) 10-15 st adverse 00:00: Hospita reaction 00 l s to drug Social History Social Habit Start Date Stop Date Quantity Comments Source Sex Assigned At [birth year] [facility] 00:00:00 00:00:00 Smoking Status Start Date Stop Date Source Tobacco smoking consumption unknown [facility] Medications Ordered Filled Start Stop Current Ordering Indication Dosage Frequency Signature Comments Components Source Medication Medication Date Date Medication? Clinician (SIG) Name Name multivitami 2018-09 Yes 1{tbl} QD Take 1 Me thodi n with 2-[address] [facility] 14:35: mouth Hospita tablet 06 daily. l cetirizine 2018-09 Yes 10mg QD Take 10 mg M ethodi (ZyrTEC) 10 2-[address] [facility] tablet 14:35: daily. Hospit a 06 l cyanocobala 2018-09 Yes 100ug QD Take 100 M ethodi min 100 MCG 2-[address] tablet 14:35: mouth Hospita 06 daily. l ranolazine 2018-09 Yes 500mg Take 500 Me thodi (RANEXA) 2-[address] 1,000 mg 12 14:34: mouth. Hosp [facility] hr tablet 06 l sildenafil 2018-09 Yes 50mg Take 50 mg M ethodi (VIAGRA) 2-[address] 100 MG 14:34: Hospita tablet 06 l aspirin 2018-09 Yes 81mg Take 81 mg Meth maury (ECOTRIN) 2-[address] 81 MG 14:34: Hospita enteric 06 l coated tablet clotrimazol 2018-09 Yes Apply Metho di e 2-[address] (LOTRIMIN) 14:34: Hospita 1 % cream 06 l metoprolol 2018-09 Yes 50mg Take 50 mg M ethodi succinate 2-[address] XL 14:34: Hospita (TOPROL-XL) 06 l 50 mg 24 hr tablet dulaglutide 2018-09 Yes Inject Meth maury 0.75 mg/0.5 2-[address] mL pen 14:34: skin. Hospita injector 06 l atorvastati 2018-09 Yes 80mg Take 80 mg Methodi n (LIPITOR) 2-[address] 80 MG 14:34: Hospita tablet 06 l carboxymeth 2018-09 Yes .05mg Apply 0.05 Methodi ylcellulose 2-[address] -glycern 14:34: Hospita 0.5-0.9 % 06 l drops glipiZIDE 2018-09 Yes 10mg Take 10 mg Me thodi (GLUCOTROL) 2-[address] 10 MG 14:34: Hospita tablet 06 l lisinopril 2018-09 Yes 5mg Take 5 mg Me thodi (PRINIVIL) 2-[address] 5 mg tablet 14:34: Hospit a 06 l omeprazole 2018-09 Yes 20mg Take 20 mg M ethodi (PriLOSEC) 2-[address] 20 MG 14:34: Hospita capsule 06 l ALPRAZolam 2015-09 Yes 1{tbl} Take 1 Met hodi (XANAX) 2 1-[address] [facility] tablet 00:00: mouth. Hospit a 00 l HYDROcodone 2015-09 Yes 1{tbl} Take 1 Me thodi -acetaminop 1-[address] hen (NORCO) 00:00: mouth. Hosp jett 10-325 mg 00 l per tablet Procedures This patient has no known procedures. Plan of Care Planned Activity Planned Date Details Comments Source Future Scheduled 2022-05-28 HEPATITIS B VACCINES Met [facility] Test 21:45:39 (1 of 3 - 3-dose series) [code = HEPATITIS B VACCINES (1 of 3 - 3-dose series)] Future Scheduled 2022-05-28 COVID-19 VACCINE (#1) [facility] Test 21:45:39 [code = COVID-19 VACCINE (#1)] Future Scheduled 2022-05-28 Hepatitis C screening [facility] Test 21:45:39 (procedure) [code = 658874209] Future Scheduled 2022-05-28 COLONOSCOPY SCREENING [facility] Test 21:45:39 [code = COLONOSCOPY SCREENING] Future Scheduled 2022-05-28 SHINGLES VACCINES (1 Met [facility] Test 21:45:39 of 2) [code = SHINGLES VACCINES (1 of 2)] Future Scheduled 2022-05-28 65+ P[facility]UMOCOCCAL [facility] Test 21:45:39 VACCINE (1 - PCV) [code = 65+ PNEUMOCOCCAL VACCINE (1 - PCV)] Future Scheduled 2022-05-28 INFLUENZA VACCINE Method [facility] Test 21:45:39 [code = INFLUENZA VACCINE] Results This patient has no known results.
[2022-06-20 12:03] LABS: Absolute Lymphocytes (CBC) 1.1 K/uL (0.7-4.9); Hematocrit 39.7 % (39.6-49.0); Lymphocytes % 17.1 % (15.3-44.8); MCV 96.1 fL (80-100); MPV 8.9 fL (7.6-11.3); RBC Red Blood Cell Count 4.13 M/uL (4.33-5.43)
--- NOTE | 2022-06-20 12:13 | RAD REPORT ---
EXAM DESCRIPTION: RAD - Chest Single View - 06/20/2022 12:02 pm CLINICAL HISTORY: CHEST PAIN Chest pain. COMPARISON: Chest Single View dated 12/31/2020; Chest Single View dated 05/18/2020; Chest Single View d ated 02/22/2020; Chest Single View dated 07/08/2019 FINDINGS: Portable technique limits examination quality. The lungs are grossly clear. The heart is normal in size. No displaced fractures. IMPRESSION: No acute intrathoracic process suspected.
[2022-06-20 12:18] LABS: Potassium 3.6 mmol/L (3.5-5.1)
--- NOTE | 2022-06-20 12:52 | EDPHYS ---
Physician Documentation [facility] Name: Yousuf Braxton Age: 66 yrs Sex: Male : 1955 Arrival Date: 06/20/2022 Time: 11:25 Bed 26 Private MD: BRITTANY Physician Romulo Aguilar HPI: 06/20 12:33 This 66 yrs old Male presents to ER via EMS with complaints of chest pain. snw 12:33 The patient or guardian reports chest pain that is located primarily in the anterior snw chest wall, left. Onset: suddenly, this morning, Pt states he has not had chest pain like this in 1.5 years. Last AR 1.5 yrs ago. The pain does not radiate. Associated signs and symptoms: Pertinent positives: indigestion. The chest pain is described as a heaviness. Duration: The patient or guardian reports a single episode, improved post nitro given per EMS. Severity of pain: At its worst the pain was moderate severe. The patient has experienced a previous episode, approximately 1.5 years ago, and the symptoms today are exactly the same. The patient has not recently seen a physician, the patient's primary care provider is Beryl Campbell. Historical: - Allergies: 11:38 Codeine; jh6 - PMHx: 11:38 CAD; Pancreatitis; Myocardial infarction; Hypertension; High Cholesterol; Diabetes - [facility] NIDDM; - Immunization history:: Adult Immunizations up to date. - Social history:: Smoking status: Patient denies any tobacco usage or history of. ROS: 12:33 Constitutional: Negative for fever, chills, and weight loss, Eyes: Negative for injury, snw pain, redness, and discharge, ENT: Negative for injury, pain, and discharge, Neck: Negative for injury, pain, and swelling, Respiratory: Negative for shortness of breath, cough, wheezing, and pleuritic chest pain, Abdomen/GI: Negative for abdominal pain, nausea, vomiting, diarrhea, and constipation, Back: Negative for injury and pain, : Negative for injury, bleeding, discharge, and swelling, MS/Extremity: Negative for injury and deformity, Skin: Negative for injury, rash, and discoloration, Neuro: Negative for headache, weakness, numbness, tingling, and seizure, Psych: Negative for depression, anxiety, suicide ideation, homicidal ideation, and hallucinations. 12:33 Cardiovascular: Positive for chest pain, of the mid-sternal area. Exam: 12:33 Constitutional: This is a well developed, well nourished patient who is awake, alert, snw and in no acute distress. Head/Face: Normocephalic, atraumatic. Eyes: Pupils equal round and reactive to light, extra-ocular motions intact. Lids and lashes normal. Conjunctiva and sclera are non-icteric and not injected. Cornea within normal limits. Periorbital areas with no swelling, redness, or edema. ENT: Nares patent. No nasal discharge, no septal abnormalities noted. Tympanic membranes are normal and external auditory canals are clear. Oropharynx with no redness, swelling, or masses, exudates, or evidence of obstruction, uvula midline. Mucous membranes moist. Neck: Trachea midline, no thyromegaly or masses palpated, and no cervical lymphadenopathy. Supple, full range of motion without nuchal rigidity, or vertebral point tenderness. No Meningismus. Chest/axilla: Normal chest wall appearance and motion. Nontender with no deformity. No lesions are appreciated. Cardiovascular: Regular rate and rhythm with a normal S1 and S2. No gallops, murmurs, or rubs. Normal PMI, no JVD. No pulse deficits. Respiratory: Lungs have equal breath sounds bilaterally, clear to auscultation and percussion. No rales, rhonchi or wheezes noted. No increased work of breathing, no retractions or nasal flaring. Abdomen/GI: Soft, non-tender, with normal bowel sounds. No distension or tympany. No guarding or rebound. No evidence of tenderness throughout. Back: No spinal tenderness. No costovertebral tenderness. Full range of motion. Skin: Warm, dry with normal turgor. Normal color with no rashes, no lesions, and no evidence of cellulitis. MS/ Extremity: Pulses equal, no cyanosis. Neurovascular intact. Full, normal range of motion. Neuro: Awake and alert, GCS 15, oriented to person, place, time, and situation. Cranial nerves II-XII grossly intact. Motor strength 5/5 in all extremities. Sensory grossly intact. Cerebellar exam normal. Normal gait. Psych: Awake, alert, with orientation to person, place and time. Behavior, mood, and affect are within normal limits. Vital Signs: 11:34 BP 106 / 66; Pulse 89; Resp 17; Temp 97.9(O); Pulse Ox 99% ; Weight 95.25 kg; Height 5 [facility] ft. 9 in. (175.26 cm); Pain 4/10; 11:34 Body Mass Index 31.01 (95.25 kg, 175.26 cm) [facility] MDM: 11:28 Patient medically screened. justice 12:32 The patient was not given aspirin in the Emergency Department. Patient reports taking snw aspirin within the past 24 hours. Data reviewed: vital signs, nurses notes. 12:52 Physician consultation: Lobo Roach MD was called at 12:43, regarding consult. snw 12:52 Physician consultation: Virginia Romero MD was called at 12:52, regarding admission, to snw the ICU. 17:55 Physician consultation: Lobo Roach MD was called at 17:56, was contacted at 17:56, w regarding consult, patient's condition, elevation in troponin. Pt declined heparin. , would like medications started, Lovenox 1mg/kg x 1 and NPO post MN. 06/20 11:45 Order name: Basic Metabolic Panel; Complete Time: 12:43 [facility] 06/20 11:45 Order name: CBC with Diff; Complete Time: 12:12 [facility] 06/20 11:45 Order name: Troponin HS; Complete Time: 12:43 [facility] 06/20 12:12 Order name: SARS RAPID; Complete Time: 14:22 [facility] 06/20 15:14 Order name: Troponin High Sensitivity; Complete Time: 17:38 [facility] 06/20 15:16 Order name: Lipid Profile [facility] 06/20 11:45 Order name: XRAY Chest (1 view); Complete Time: 12:18 [facility] 06/20 11:45 Order name: EKG; Complete Time: 11:46 [facility] 06/20 15:16 Order name: CONS Physician Consult [facility] 06/20 15:16 Order name: Echo with Doppler [facility] 06/20 15:16 Order name: EKG Electrocardiogram [facility] 06/20 15:16 Order name: Lipid Profile; Complete Time: 07:52 [facility] 06/20 15:52 Order name: Glucose, Ancillary Testing; Complete Time: 15:52 [facility] 06/20 11:45 Order name: Cardiac monitoring; Complete Time: 11:45 [facility] 06/20 11:45 Order name: EKG - Nurse/Tech; Complete Time: 11:45 [facility] 06/20 11:45 Order name: IV Saline Lock; Complete Time: :45 [facility] 06/20 11:45 Order name: Labs collected and sent; Complete Time: 11:45 [facility] 06/20 11:45 Order name: O2 Per Protocol; Complete Time: :45 [facility] 06/20 11:45 Order name: O2 Sat Monitoring; Complete Time: 11:45 [facility] 06/20 15:16 Order name: EKG Electrocardiogram EDND EC:30 Rate is 85 beats/min. Rhythm is regular. QRS [place] is Normal. T waves are Inverted in snw leads V2, V3. Clinical impression: NSR w/ Non-specific ST/T Changes. Administered Medications: 14:02 Not Given (Patient Refused): Heparin (AR Drip) 12 units/kg/hr - (HEParin 81388 units, jh6 D5W 500 ml) IV at calculated rate Per protocol; Max initial rate 1000 units/hr Disposition Summary: 06/20/22 12:51 Hospitalization Ordered Hospitalization Status: Inpatient Admission snw Provider: Virginia Romero snw Condition: Stable snw Problem: new snw Symptoms: have worsened snw Bed/Room Type: Standard snw Location: Telemetry/MedSurg (Inpatient)(06/21/22 05:21) Room Assignment: [facility](06/21/22 05:21) mw Diagnosis - Acute Coronary Syndrome snw Forms: - Medication Reconciliation Form snw - SBAR form snw Signatures: Dispatcher [employer] EDND Michelle Ruvalcaba RN RN mw Anderson, Corey, MD MD cha Waters, Shelly, MANIFEST/ORDER ORGANIZER PRINT ORDERS-C MANIFEST/ORDER ORGANIZER PRINT ORDERS-Csnw Jennie Solano 2 Jody Marte, RN RN jh6 Corrections: (The following items were deleted from the chart) 23:03 12:51 Intensive Care Unit snw 2 23:03 12:51 snw 2 06/21 05:21 06/20 23:03 [facility] ER HOLD mw2 mw 06/21 05:06/20 23:03 ERHOLD- [facility] mw
--- NOTE | 2022-06-20 12:52 | ER ---
Nurse's Notes [facility] Name: Yousuf Braxton Age: 66 yrs Sex: Male : 1955 Arrival Date: 06/20/2022 Time: 11:25 Bed 26 Private MD: Diagnosis: Acute Coronary Syndrome Presentation: 06/20 11:34 Chief complaint: Patient states: Chest pain, sudden onset while in the shower. Hx of [place] jh6 x1yr prior. Pt alert NAD noted. EMS reports that they gave NTG x1 [employer] and pt took asa 162mg [employer]. Coronavirus screen: Vaccine status: Patient reports receiving the 2nd dose of the covid vaccine. Ebola Screen: Patient negative for fever greater than or equal to 101.5 degrees Fahrenheit, and additional compatible Ebola Virus Disease symptoms Patient denies exposure to infectious person. Patient denies travel to an Ebola-affected area in the 21 days before illness onset. Initial Sepsis Screen: Does the patient meet any 2 criteria? No. Patient's initial sepsis screen is negative. Does the patient have a suspected source of infection? No. Patient's initial sepsis screen is negative. Risk Assessment: Do you want to hurt yourself or someone else? Patient reports no desire to harm self or others. Onset of symptoms was June 20, 2022. 11:34 Method Of Arrival: EMS: [facility] 11:34 Acuity: JORDY 2 6 Triage Assessment: 11:38 General: Appears in no apparent distress. Pain: Complains of pain in anterior aspect of [facility] left upper chest, mid-sternal area and left breast Pain currently is 5 out of 10 on a pain scale. Quality of pain is described as crushing, Pain began suddenly, Is continuous, Alleviated by medications, Aggravated by palpation on left chest. Cardiovascular: Reports chest pain, Capillary refill < 3 seconds Clubbing of nail beds is absent JVD is absent Patient's skin is warm and dry. Rhythm is regular. Respiratory: No deficits noted. Historical: - Allergies: 11:38 Codeine; jh6 - PMHx: 11:38 CAD; Pancreatitis; Myocardial infarction; Hypertension; High Cholesterol; Diabetes - [facility] NIDDM; - Immunization history:: Adult Immunizations up to date. - Social history:: Smoking status: Patient denies any tobacco usage or history of. Screenin:41 Abuse screen: Denies threats or abuse. Denies injuries from another. Nutritional [facility] screening: No deficits noted. Tuberculosis screening: No symptoms or risk factors identified. Fall Risk Fall in past 12 months (25 points). IV access (20 points). Assessment: 11:40 General: se triage note. [facility] Vital Signs: 11:34 BP 106 / 66; Pulse 89; Resp 17; Temp 97.9(O); Pulse Ox 99% ; Weight 95.25 kg; Height 5 [facility] ft. 9 in. (175.26 cm); Pain 4/10; 11:34 Body Mass Index 31.01 (95.25 kg, 175.26 cm) [facility] ED Course: 11:25 Patient arrived in ED. em1 11:26 [facility]ret[facility] Edwards FNP-C [facility]. snw 11:26 Romulo Aguilar MD is Attending Physician. snw 11:34 Jody Marte, RN is Primary Nurse. [facility] 11:38 Triage completed. [facility] 11:40 Arm band placed on left wrist. EKG completed in triage. Results shown to MD. [facility] 11:41 Patient has correct armband on for positive identification. Placed in gown. Bed in low [facility] position. Call light in reach. Side rails up X 1. Adult w/ patient. 12:04 XRAY Chest (1 view) In Process Unspecified. EDMS 12:50 Virginia Romero MD is Hospitalizing Provider. snw 19:27 Primary Nurse role handed off by Jody Marte, MUMTAZ ll3 19:27 Sidney Rene, MUMTAZ is Primary Nurse. ll3 Administered Medications: 14:02 Not Given (Patient Refused): Heparin ([place] Drip) 12 units/kg/hr - (HEParin 88865 units, jh6 D5W 500 ml) IV at calculated rate Per protocol; Max initial rate 1000 units/hr Outcome: 12:51 Decision to Hospitalize by Provider. snw 06/21 05:57 Patient left the ED. tw5 Signatures: Dispatcher [employer] EDTX Gretta Edwards FNP-C SALES CONTRACT ADMINISTRATOR-Joseph Finley em1 Sada Parsonsfany tw5 Sidney Rene RN RN 3 Jody Marte, MUMTAZ PANDYA jh6
--- NOTE | 2022-06-20 13:36 | EKG ---
Test Date: 2022-06-20 Test Time: 11:22:42 Propagator Laborer: LANEY MEASUREMENT RESULTS: Intervals: Rate: 85 CT: 134 QRSD: 118 QT: 364 QTc: 433 [place]: P: 62 CT: 134 QRS: -53 T: 4 INTERPRETIVE STATEMENTS: Normal sinus rhythm Incomplete right bundle branch block Left anterior fascicular block ST & T wave abnormality, consider anterior ischemia Abnormal ECG Compared to ECG 01/01/2021 11:11:52 Incomplete right bundle-branch block now present Left anterior fascicular block now present ST (T wave) deviation now present Possible ischemia now present Sinus bradycardia no longer present Left-axis deviation no longer present Right bundle-branch block no longer present Electronically Signed On 06-20-22 13:36:04 CDT by Lobo Roach
[2022-06-20 14:21] LABS: SARS-CoV-2 Antigen Rapid Res Negative (Negative)
[2022-06-20] MEDS ORDERED: ACETAMINOPHEN 500 MG TAB PO PRN (15:12)
[2022-06-20] MEDS ORDERED: MORPHINE 4 MG/ML SYR ONE ×2 (17:12→22:08)
[2022-06-20 17:27] VITALS: BMI 31.0
[2022-06-20] MEDS ORDERED: ALPRAZOLAM 1 MG TABLET PO PRN ×2 (19:38→23:48)
[2022-06-20] MEDS ORDERED: HYDROCODONE/APAP 7.5/325 MG TAB PO PRN (19:38)
[2022-06-20] MEDS ORDERED: HYDROCODONE/APAP 7.5/325 MG TAB ONE (20:20)
[2022-06-20] MEDS: ENOXAPARIN 100 MG/ML SYR SQ SCH (21:00)
[2022-06-20] MEDS: METOPROLOL TAR 25 MG TAB PO SCH (21:00)
[2022-06-20] MEDS ORDERED: ENOXAPARIN 100 MG/ML SYR SQ ONE (21:24)
[2022-06-20] MEDS ORDERED: NA CHLORIDE 0.9% 1,000 ML ONE (22:00)
[2022-06-20] MEDS: MORPHINE 4 MG/ML SYR IV PRN (22:02)
[2022-06-21] MEDS: MORPHINE 4 MG/ML SYR IV PRN ×2 (01:55→20:18)
[2022-06-21] MEDS ORDERED: MORPHINE 4 MG/ML SYR ONE (01:58)
[2022-06-21] MEDS ORDERED: D5 0.45 NS 1,000 ML IV ONE (07:05)
[2022-06-21] MEDS: METOPROLOL TAR 25 MG TAB PO SCH ×2 (09:00→20:20)
[2022-06-21] MEDS: ENOXAPARIN 100 MG/ML SYR SQ SCH ×2 (09:00→20:19)
[2022-06-21] MEDS: ASPIRIN EC 81 MG TAB PO SCH (09:13)
--- NOTE | 2022-06-21 09:44 | P.HP ---
Certification for Inpatient Patient admitted to: Inpatient With expected LOS: >2 Midnights Patient will require the following post-hospital care: None Practitioner: I am a practitioner with admitting privileges, knowledge of patient current condition, hospital course, and medical plan of care. Services: Services provided to patient in accordance with Admission requirements found in Title 42 Section 412.3 of the Code of Federal Regulations Patient History Date of Service: 06/20/22 Reason for admission: CP R/O ACS Allergies codeine [Codeine] Allergy (Intermediate, Verified 05/19/20 01:10) Hives/Rash Home Medications: ALPRAZolam [Alprazolam] 2 mg PO BID 05/19/20 Aspirin Chewable [Aspirin Chewable*] 81 mg PO DAILY 05/19/20 Dulaglutide [Trulicity] 0.5 ml SQ EVERY 7TH DAY 05/19/20 Hydrocodone/Acetaminophen [Hydrocodone-Acetamin 10-325 mg] 1 tab PO QID 05/19/20 Lisinopril [Zestril] 10 mg PO DAILY 05/19/20 Omeprazole 20 mg PO DAILY PRN 05/19/20 Ranolazine [Ranolazine ER] 1,000 mg PO BID 05/19/20 glipiZIDE [Glipizide] 10 mg PO DAILY 05/19/20 Ticagrelor [Brilinta*] 90 mg PO BID #60 tablet 05/20/20 Metoprolol Tartrate [Lopressor*] 12.5 mg PO BID 6AM 6PM 12/31/20 Atorvastatin Calcium [Lipitor] 80 mg PO BEDTIME #30 tab 01/02/21 Hydrocodone 7.5/APAP 325 [[place] 7.5/325 mg*] 1 tab PO Q6H PRN #30 tab 01/02/21 - Past Medical/Surgical History Has patient received pneumonia vaccine in the past: Yes Diabetic: Yes -: CAD -: Diabetes -: HTN -: MS -: Pancreatitis -: HLD -: Angioplasty -: Heart stent x3 -: R ankle sx Psychosocial/ Personal History: Patient lives at home alone. - Family History Father Notes: parkinsons, dementia Mother Medical History: Lung disease - Social History Smoking Status: Never smoker Alcohol use: Yes CD- Drugs: No Caffeine use: Yes Place of Residence: Home Review of Systems 10-point ROS is otherwise unremarkable Physical Examination - Vital Signs Temperature: 96.3 F Blood Pressure: 129/66 Pulse: 63 Respirations: 18 Pulse Ox (%): 97 - Physical Exam General: Alert, In no apparent distress, Oriented x3 HEENT: Atraumatic, PERRLA, Mucous membr. moist/pink, EOMI, Sclerae nonicteric Neck: Supple, 2+ carotid pulse no bruit, No LAD, Without JVD or thyroid abnormality Respiratory: Clear to auscultation bilaterally, Normal air movement Cardiovascular: Regular rate/rhythm, Normal S1 S2, No murmurs Gastrointestinal: Normal bowel sounds, Soft and benign, Non-distended, No tenderness Musculoskeletal: No clubbing, No swelling, No tenderness Integumentary: No rashes Neurological: Normal gait, Normal speech, Normal strength at 5/5 x4 extr, Normal tone, Sensation intact, Cranial nerves 3-12 intact, Normal affect Lymphatics: No axilla or inguinal lymphadenopathy - Studies Laboratory Data (last 24 hrs) 06/20/22 11:48: WBC 6.40, Hgb 13.5 L, Hct 39.7, Plt Count 158 06/20/22 11:48: Sodium 139, Potassium 3.6, BUN 9, Creatinine 1.28, Glucose 160 H Assessment & Plan - Problems (Diagnosis) (1) Chest pain, rule out acute myocardial infarction Current Visit: No Status: Acute (2) Coronary artery disease Current Visit: No Status: Acute (3) History of hypertension Current Visit: No Status: Acute (4) Type 2 diabetes mellitus Current Visit: No Status: Acute - Plan -High-sensitivity troponin -Cardiology consultation -Echocardiogram and stress test per cardiology recommendation -Repeat EKG -Work-up for other etiologies of cardiac chest pain if troponins remain negative -Lipid profile -Crap Shooter regarding modifying risk for cardiac disease Discharge Plan: Home Plan to discharge in: Greater than 2 days - Advance Directives Does patient have a Living Will: No Does patient have a Durable POA for Healthcare: No - Code Status/Comfort Care Code Status Assessed: Yes Code Status: Full Code Critical Care: No Time Spent Managing PTS Care (In Minutes): 45
[2022-06-21] MEDS ORDERED: MIDAZOLAM HCL 2 MG/2 ML INJ ONE (11:45)
[2022-06-21] MEDS ORDERED: VERAPAMIL HCL 10 MG/4 ML VIAL IV ONE (11:45)
[2022-06-21] MEDS ORDERED: HEPARIN 10,000 UNIT/10 ML VIAL IV ONE (11:45)
[2022-06-21] MEDS ORDERED: HEPARIN 5000 UNIT/ML 1 ML VIAL ONE (11:45)
[2022-06-21] MEDS ORDERED: FENTANYL CITR 100 MCG/2 ML ONE (11:45)
[2022-06-21] MEDS ORDERED: NITROGLYCERIN 100 MCG/ML SYR (for cath lab use only) IV ONE (11:46)
[2022-06-21] MEDS ORDERED: LIDOCAINE 1% MPF 30 ML VIAL ONE (11:46)
[2022-06-21] MEDS ORDERED: NITROGLYCERIN/D5W 25 MG/250 ML BTL IV ONE (11:46)
[2022-06-21] MEDS ORDERED: ATROPINE SULF 1 MG/10 ML SYR IV ONE (11:46)
[2022-06-21] MEDS ORDERED: HEPA 1000U/500MLS 2,000 UNIT/1,000 ML BAG IV ONE (11:46)
[2022-06-21] MEDS ORDERED: CLOPIDOGREL 75 MG TABLET ONE (11:53)
[2022-06-21] MEDS ORDERED: TICAGRELOR 90 MG TABLET PO ONE (11:53)
[2022-06-21] MEDS ORDERED: ASPIRIN 325 MG TAB ONE (11:53)
[2022-06-21] MEDS ORDERED: D5 NS IV SCH (12:00)
[2022-06-21] MEDS ORDERED: NA CHLORIDE 0.9% 500 ML ONE (12:16)
[2022-06-21] MEDS ORDERED: HEPA 1000U/500MLS 1,000 UNIT/500 ML BAG IV ONE (12:41)
[2022-06-21] MEDS ORDERED: D10W 250 ML BAG IV ONE (12:54)
--- NOTE | 2022-06-22 00:13 | CON ---
Date of Consultation: 06/21/2022 Reason For Consultation: Chest pain with elevated troponin. History Of Present Illness: This is a middle-aged male with known severe coronary artery disease wit h multiple cardiac stents and cardiac catheterizations in the past. He presented to the emergency ro om with chest pain and ruled in for non-ST elevation myocardial infarction with elevated troponin. Past Medical History: Coronary artery disease, diabetes, hypertension, and dyslipidemia. Medications: Refer to reconciliation sheet for detailed list. Allergies: CODEINE. Past Surgical History: Multiple cardiac stents. Social History: Does not smoke or drink. Does not use any drugs. Review of Systems: All systems reviewed and are negative except as mentioned in HPI. Physical Examination: Vital Signs: Reviewed. Head And Neck: Pupils are equal and reactive to light. Intact eye movements. No JVD. No cervical lymphadenopathy. Neck: Supple. Thyroid is not enlarged. Lungs: Clear to auscultation bilaterally. No rhonchi, rales, or crackles. No accessory muscle use. Heart: Regular rate and rhythm. No extra sounds. Abdomen: Soft, nontender. Bowel sounds positive. No organomegaly. No masses or hernia. No rigidi ty or rebound. Extremities: No clubbing or cyanosis. Intact pulses. Skin: No rash or nodules. Neurologic: Alert, awake, and oriented x3. No acute events. Investigations: Troponin peaked at 2111. Creatinine is 1.28. Hemoglobin 13.5. Assessment/recommendation: 1.Non-ST elevation myocardial infarction. The patient received a dose of Lovenox last night and kep t n.p.o. We will plan for coronary angiogram and PCI as needed. 2.Hypertension. Blood pressure is controlled now. Continue home medications. 3.Dyslipidemia. The patient will need to be high-dose statin, like Lipitor 80 mg at bedtime due to a ggressive coronary artery disease that he has. SR/MODL Voice ID: [id number] Report ID: [id number]
[2022-06-22] MEDS: MORPHINE 4 MG/ML SYR IV PRN ×6 (00:54→21:56)
--- NOTE | 2022-06-22 03:39 | OP ---
Date of Procedure: 06/21/2022 Surgeon: DIANA PRAJAPATI Procedures Performed: 1.Selective coronary angiogram. 2.Left heart catheterization. 3.PCI of severe mid OM stenosis 99%, which is the culprit for the AZ. I used 2.25 x 16 mm Synergy d rug-eluting stent and post dilated the proximal OM stent and left circumflex stent using a 3.0 x 15 m m NC balloon. Complications: None. Estimated Blood Loss: Bleeding less than 20 mL. Access: Right femoral artery 6-Pakistani closed with StarClose. Anesthesia: Total sedation time was 50 minutes. Description Of Procedure: After risks, benefits, and alternatives were explained, the patient agreed to the procedure and signed informed consent. Patient was brought into the cardiac catheterization laboratory, prepped and draped in usual sterile fashion. Then, I accessed the right femoral artery u sing micropuncture kit, fluoroscopy, and an ultrasound guidance and placed an 8-Pakistani [place] sheat h and took a 6-Pakistani JL4 catheter into aortic root, engaged left main, took standard views and then exchanged for 6-Pakistani JR4 catheter and engaged the RCA, took standard views and then the catheter wa s pushed across the aortic valve into the LV. Measured LVEDP and pullback did not record any gradien t and then gave systemic heparin, loaded with 600 of Plavix and then aspirin and then I took a EBU 3. 5 guide 6-Pakistani into the aortic root over a J-wire and engaged left main, took short Runthrough wire into the left circumflex stent and then OM passing the area of stenosis. Area was prepped very well and lesions were expanded, so then I placed a 2.25 x 16 mm Synergy drug-eluting stent overlapped wit h the old stent and then post dilated the mid and proximal part of the old stent using a 3.0 x 15 mm NC balloon with excellent results at the end. I then removed the wire and the guide and sheath and u sed StarClose for closure with good hemostasis. Findings: 1.Left main is normal. 2.Proximal LAD has 30% to 40% stenosis diffusely. Then, the LAD becomes normal with luminal irregul arities and diagonal 1 and diagonal 2 branches were patent. 3.Left circumflex: Proximal left circumflex stent that is extending to the OM is patent. Distal to the stent, there are 2 focal areas of 99% occlusion, which is the culprit for the AZ and status post successful PCIs as above. 4.RCA: Proximal stent is patent with 20%-30% ISR and then the artery becomes small about like 1 mm with diffuse disease about 20%-30%. 5.LVEDP normal at 10-30 mmHg. Conclusion: Severe OM1 stenosis, which is the culprit for the AZ. Otherwise, moderate diffuse coron xu artery disease. Plan: Continue aspirin and Plavix and statin. If he continues to be stable, to be released home [facility] and follow up as an outpatient. SR/MODL Voice ID: [id number] Report ID: [id number]
[2022-06-22] MEDS: METOPROLOL TAR 25 MG TAB PO SCH ×2 (09:00→20:18)
[2022-06-22] MEDS: ENOXAPARIN 100 MG/ML SYR SQ SCH ×2 (09:13→20:15)
[2022-06-22] MEDS: ASPIRIN EC 81 MG TAB PO SCH (09:13)
[2022-06-22] MEDS ORDERED: D50W 25 GM/50 ML SYRINGE IV PRN (11:51)
[2022-06-22] MEDS ORDERED: GLUCAGON 1 MG/VIAL IM PRN (11:51)
[2022-06-22] MEDS: INSULIN -REGULAR HUMAN 50 UNIT/0.5 ML ML SQ SCH ×3 (12:10→20:19)
[2022-06-22] MEDS ORDERED: CLOPIDOGREL 75 MG TABLET PO SCH ×2 (16:23→17:15)
[2022-06-22] MEDS: CLOPIDOGREL 75 MG TABLET PO SCH (18:05)
[2022-06-22] MEDS ORDERED: CLOPIDOGREL 75 MG TABLET ONE (18:12)
[2022-06-22] MEDS ORDERED: ATORVASTATIN 40 MG TAB PO SCH (21:00)
--- NOTE | 2022-06-22 21:04 | PN ---
Date of Progress Note: 06/22/2022 Subjective: Seen by bedside, doing well. No further chest pain. Review of Systems: No chest pain, shortness of breath, orthopnea, or cough. No nausea, vomiting, or diarrhea. No abdom inal pain, dysuria, polyuria, or urinary urgency. No skin rash. All other systems reviewed and they are negative. Objective: Vital Signs: Temperature is 97.9, pulse is 89, breathing 17, blood pressure 106/66, satu rating 99% on room air. General: Pleasant, middle-aged male, in no apparent distress. Head and Neck: Pupils are equal, reactive to light. Intact eye movements. No JVD. No cervical lym phadenopathy. Neck is supple. Thyroid is not enlarged. Lungs: Clear to auscultation bilaterally. No crackles. No accessory muscle use. Heart: Regular rate and rhythm. No extra sounds. Abdomen: Soft, nontender. Bowel sounds positive. No organomegaly. No masses or hernia. No rigidi ty or rebound. Extremities: No edema, clubbing, cyanosis. Intact pulses. Skin: No rashes. Neurologic: Alert, awake, oriented x3. No acute deficit appreciated. Investigation: Labs reviewed. Assessment And Recommendations: 1.Non-ST elevation myocardial infarction. Culprit is OM1 branch, status post successful PCI, doing clinically very well. The patient is not receiving Plavix despite the fact it was ordered yesterday. He was loaded yesterday on the table. I will give him a stat dose of 75 mg now and aspirin 81 mg d aily as well as beta-karl with the anticoagulation to be continued for a period of 24 hours from t he presentation and then the patient can be released today and follow up as an outpatient with Dr. Champ salgado. 2.Dyslipidemia. I will start him on Lipitor 40 mg at bedtime. 3.Hypertension. Blood pressure is controlled. SR/MODL Voice ID: [id number] Report ID: [id number]
[2022-06-22] MEDS ORDERED: VANCOMYCIN 1 GM in NA CHLORIDE 0.9% 250 ML IVPB ONE (22:47)
--- NOTE | 2022-06-22 22:53 | P.PN ---
Date of Service: 06/21/22 Subjective patient is clinically doing well with no new complaints. Symptoms are improving. Patient status post cardiac catheterization with stent placement in the left circumflex. Continue with cardiac meds at this time. Physical Examination - Vital Signs Reviewed - Physical Exam General: Alert, In no apparent distress, Oriented x3 Respiratory: Clear to auscultation bilaterally, Normal air movement Cardiovascular: Regular rate/rhythm, Normal S1 S2, No murmurs Gastrointestinal: Normal bowel sounds, Soft and benign, Non-distended, No tenderness Musculoskeletal: No clubbing, No swelling, No tenderness Neurological: Normal gait, Normal speech, Normal strength at 5/5 x4 extr, Normal tone, Sensation intact, Cranial nerves 3-12 intact, Normal affect Assessment & Plan - Problems (Diagnosis) (1) Chest pain, rule out acute myocardial infarction Current Visit: No Status: Acute (2) Coronary artery disease Current Visit: No Status: Acute (3) History of hypertension Current Visit: No Status: Acute (4) Type 2 diabetes mellitus Current Visit: No Status: Acute - Plan continue with plan of care as mentioned below: -Cardiology consultation appreciated -status post stent placement-99% occluded left circumflex -continue with cardiac meds along with statin therapy, anti-platelet therapy, and anticoagulation -Group Exercise Class Instructor regarding modifying risk for cardiac disease -strict blood pressure and blood sugar control -possible discharge in a.m. Discharge Plan: Home Plan to discharge in: Greater than 2 days
--- NOTE | 2022-06-22 22:56 | P.PN ---
Date of Service: 06/22/22 Subjective patient is clinically doing well. He felt a boil on his buttocks. Spoke with General surgery and plan is to start antibiotics. May need bedside I& D. Status post stent placements of no aggressive intervention at this time. Physical Examination - Vital Signs Reviewed - Physical Exam General: Alert, In no apparent distress, Oriented x3 Respiratory: Clear to auscultation bilaterally, Normal air movement Cardiovascular: Regular rate/rhythm, Normal S1 S2, No murmurs Gastrointestinal: Normal bowel sounds, Soft and benign, Non-distended, No tenderness Musculoskeletal: No clubbing, No swelling, No tenderness Neurological: Normal gait, Normal speech, Normal strength at 5/5 x4 extr, Normal tone, Sensation intact, Cranial nerves 3-12 intact, Normal affect Integumentary: left buttocks area with eryhtema; Assessment & Plan - Problems (Diagnosis) (1) Chest pain, rule out acute myocardial infarction Current Visit: No Status: Acute (2) Coronary artery disease Current Visit: No Status: Acute (3) History of hypertension Current Visit: No Status: Acute (4) Type 2 diabetes mellitus Current Visit: No Status: Acute (5) Skin cellulitis(buttocks) Current Visit: No Status: Acute - Plan continue with plan of care as mentioned below: -Cardiology consultation appreciated -status post stent placement-99% occluded left circumflex -continue with cardiac meds along with statin therapy, anti-platelet therapy, and anticoagulation -Marketing And Public Relations Manager regarding modifying risk for cardiac disease -strict blood pressure and blood sugar control -abx -possible discharge in a.m. Discharge Plan: Home Plan to discharge in: Greater than 2 days
[2022-06-22] MEDS ORDERED: VANCOMYCIN 1.75 GM in NA CHLORIDE 0.9% 500 ML IVPB ONE (23:00)
[2022-06-22] MEDS ORDERED: VANCOMYCIN 1 GM/VIAL ONE (23:50)
[2022-06-23] MEDS ORDERED: NA CHLORIDE 0.9% 500 ML ONE (00:02)
[2022-06-23 01:16] VITALS: O2SAT 100
[2022-06-23] MEDS: MORPHINE 4 MG/ML SYR IV PRN ×4 (01:55→13:27)
[2022-06-23 07:13] LABS: Absolute Lymphocytes (CBC) 1.4 K/uL (0.7-4.9); Hematocrit 32.3 % (39.6-49.0); Lymphocytes % 34.1 % (15.3-44.8); MCV 97.5 fL (80-100); MPV 8.9 fL (7.6-11.3); RBC Red Blood Cell Count 3.32 M/uL (4.33-5.43)
[2022-06-23 07:21] LABS: Albumin 2.7 g/dL (3.4-5.0); Bilirubin Total 0.8 mg/dL (0.2-1.0); Potassium 3.9 mmol/L (3.5-5.1); Protein, Total 5.8 g/dL (6.4-8.2)
[2022-06-23 07:23] LABS: Magnesium 1.4 mg/dL (1.8-2.4)
[2022-06-23] MEDS: INSULIN -REGULAR HUMAN 50 UNIT/0.5 ML ML SQ SCH ×2 (07:30→11:39)
[2022-06-23] MEDS ORDERED: Magnesium Sulfate 2gm IVPB 2 G/50 ML BAG IV ONE ×2 (08:07→10:00)
[2022-06-23] MEDS ORDERED: CLOPIDOGREL 75 MG TABLET PO SCH (09:00)
[2022-06-23] MEDS ORDERED: SMZ./TMP. 800/160 MG TABLET PO SCH (09:00)
[2022-06-23] MEDS ORDERED: MINOCYCLINE HCL 50 MG CAP PO SCH (09:00)
[2022-06-23] MEDS: METOPROLOL TAR 25 MG TAB PO SCH (09:58)
[2022-06-23] MEDS: ASPIRIN EC 81 MG TAB PO SCH (09:59)
[2022-06-23] MEDS: CLOPIDOGREL 75 MG TABLET PO SCH (09:59)
[2022-06-23] MEDS: ENOXAPARIN 100 MG/ML SYR SQ SCH (10:00)
[2022-06-23 11:27] VITALS: BP 110/48; TEMP 97.7
--- NOTE | 2022-06-23 14:25 | PN ---
Date of Progress Note: 06/23/2022 Subjective: Seen by bedside. Clinically doing well. No chest pain. Review of Systems: No chest pain, shortness of breath, orthopnea, cough. No nausea, vomiting, diarrhea. All other syst ems reviewed and they were negative. Physical Examination: Vital Signs: Temperature is 97.7, pulse 69, breathing at 16, blood pressure is 110/48, saturating 10 0%. General: Pleasant middle-aged male, in no apparent distress. Head and Neck: Pupils are equal, reactive to light. Intact eye movements. No JVD. No cervical lym phadenopathy. Neck is supple. Thyroid is not enlarged. Lungs: Clear to auscultation bilaterally. No rhonchi, wheezing, or crackles. No accessory muscle u se. Heart: Regular rate and rhythm. No extra sounds. Abdomen: Soft, nontender. Bowel sounds positive. No organomegaly. No masses or hernia. No rigidi ty or rebound. Extremities: No clubbing or cyanosis. Intact pulses. Skin: No rash. Neurologic: Alert, awake, oriented x3. No acute focal deficits appreciated. Investigations: BUN 6, creatinine 1.02. Hemoglobin is 11. Assessment And Recommendations: 1.Non-ST elevation myocardial infarction, status post PCI of the OM1 branch for the culprit region. Doing well. Continue aspirin and Plavix, and this patient will need high-dose statin as well when h e is on the Lipitor 40 at bedtime. Continue metoprolol. From Cardiology standpoint, the patient can be released and follow up as an outpatient. Follow up with Dr. Angulo for his regular cardiac care . 2.Hyperlipidemia. Continue statin. 3.Hypertension. Blood pressure is controlled. Continue current medications. SR/MODL Voice ID: [id number] Report ID: [id number]
--- NOTE | 2022-06-23 20:37 | CON ---
Date of Consultation: 06/23/2022 Reason For Consultation: Right buttock abscess. Brief History Of Present Illness: The patient is a 66-year-old male who was admitted on 06/20/2022 w ith known history of severe coronary artery disease and multiple cardiac stents and cardiac catheteri zations in the past. He presented to the ER with complaints of chest pain and was ruled in for a non -ST-elevation myocardial infarction with elevated troponins. He ultimately had cardiac stents and an angioplasty performed with Dr. Roach successfully. He is on anticoagulation as well for his martino ry artery disease and current myocardial infarction. He ultimately had not had pain like this in the past 1.5 years and his last myocardial infarction was 1-1/2 years ago prior to his presentation to [facility] ER. Past Medical History: Significant for coronary artery disease, pancreatitis, myocardial infarction, hypertension, high cholesterol, and diabetes. Allergies: TO CODEINE. Social History: He denied alcohol, tobacco, or recreational drug use. Review of Systems: Ten-point review of systems other than HPI denies. Physical Examination: At the time of my examination, General: He is awake, alert, and oriented. Psychiatric: He is appropriately conversive. HEENT: Normocephalic. His sclerae are anicteric. His mucous membranes are moist. Oropharynx clear . Neck: Supple without JVD. Chest: Normal expansion and excursion. Cardiovascular: He was currently regular rate and rhythm. Back: Focused examination of his back, he has a right gluteal area of induration consistent with a r ecently drained abscess. There is no abscess material currently appreciated. He has tenderness at t his area. On discussion, he states he has had this for over a month. Laboratory Data: Revealed a white blood cell count of 4.2, hemoglobin 11.0, hematocrit 32.3, and rashid telet count was 113. His coags showed an activated clotting time of 312 on 06/21/2022. His chemistr y showed a sodium 139, potassium 3.9, chloride 108, carbon dioxide is , BUN 6, creatinine 1 .02, glucose 220, calcium 8.2, and magnesium 1.4. His serology showed a negative COVID test. He is currently anticoagulated fully as he has had recent cardiac stents placed. He is currently receiving aspirin, Plavix and Lovenox. Assessment And Plan: This is a 66-year-old male who presents with a recent myocardial infarction, st atus post coronary intervention on anticoagulation with a right gluteal cellulitis and recently drain ed abscess. 1.Continue medical management. 2.Antibiotic coverage. 3.I have recommended mupirocin cream to the area topically. 4.I have explained to the patient to follow up with me as an outpatient, and we will consider draina ge should this recur in the clinic setting. I have recommended no significant intervention at this t dmitriy as he is very recent status post coronary intervention. I do not recommend stopping his anticoag ulation. Therefore, he must continue his anticoagulation at this time and continue his plan per Dr. Roach in 6 months period after his coronary artery stent placements, and I have instructed him that should he have need for drainage of this area, we can proceed in the clinic setting, even while he is currently continuing his anticoagulation, and we have methods for controlling any potential postproc edural bleeding, and I have recommended continuing antibiotics as well pressure reduction. The patie nt agrees to proceed as indicated. Thank you for this interesting consult. POLINA/BRUNA Voice ID: [id number] Report ID: [id number]
[2022-06-23] MEDS ORDERED: MUPIROCIN 2% OINT 22GM TUBE TOP SCH (21:00)
== END 2022-06-23 13:45 | disposition home or self-care (01) | DRG 247 ==
LOC: ER 11:21 → ERHOLD 15:12 → 2ND 06-21 05:27
PROVIDERS: ADMIT Hospitalist; ATTEND Hospitalist
PROC: 027034Z Dilation of Coronary Artery, One Artery with Drug-eluting Intraluminal Device, Percutaneous Approach (ICD-10-PCS; principal; 2022-06-20)
PROC: 4A023N7 Measurement of Cardiac Sampling and Pressure, Left Heart, Percutaneous Approach (ICD-10-PCS; 2022-06-20)
PROC: B2111ZZ Fluoroscopy of Multiple Coronary Arteries using Low Osmolar Contrast (ICD-10-PCS; 2022-06-20)
DX: I21.4 Non-ST elevation (NSTEMI) myocardial infarction (principal); L03.317 Cellulitis of buttock; E78.5 Hyperlipidemia, unspecified; I10 Essential (primary) hypertension; E11.9 Type 2 diabetes mellitus without complications; I25.10 Atherosclerotic heart disease of native coronary artery without angina pectoris; I25.2 Old myocardial infarction; Z60.2 Problems related to living alone; Z95.5 Presence of coronary angioplasty implant and graft; Z88.5 Allergy status to narcotic agent; Z79.82 Long term (current) use of aspirin; Z79.02 Long term (current) use of antithrombotics/antiplatelets; Z79.84 Long term (current) use of oral hypoglycemic drugs; Z79.899 Other long term (current) drug therapy; Z20.822 Contact with and (suspected) exposure to COVID-19
CPT/HCPCS: 36415; 71045; 80048; 80053; 80061; 82947; 83735; 84484; 85025; 85347; 87811; 93005; 93458; 99283; C1725; C1893; C9600; J1644; J1650; J1815; J2250; J3010; J3370; J3475; J7030; J7040; J7799

== ENCOUNTER 2022-10-01 00:49 | Emergency (ER) | payer OTHER ==
--- OUTSIDE RECORDS SUMMARY | 2022-10-01 00:52 | XMS REPORT | Continuity of Care Document ---
:1955 Author Organization [facility] t Address [address] [place] [address] Care Team Providers Name Role Phone Asked, No Pcp Primary Care Physician Unavailable Problems This patient has no known problems. Allergies, Adverse Reactions, Alerts Allergy Allergy Status Severity Reaction(s) Onset Inactive Treating Comm ents Source Name Type Date Date Clinician Nusrat Prieto Active Other (See 2015-09 Met mary ty to Comments) 10-15 adverse 00:00: Hospita reaction 00 l s to drug Social History Social Habit Start Date Stop Date Quantity Comments Source Sex Assigned At [birth year] [facility] 00:00:00 00:00:00 Smoking Status Start Date Stop Date Source Tobacco smoking consumption unknown [facility] Medications Ordered Filled Start Stop Current Ordering Indication Dosage Frequency Signature Comments Components Source Medication Medication Date Date Medication? Clinician (SIG) Name Name cetirizine 2018-09 Yes 10mg QD Take 10 mg M ethodi (ZyrTEC) 10 2-[address] [facility] tablet 14:35: daily. Hospit a 06 l cyanocobala 2018-09 Yes 100ug QD Take 100 M ethodi min 100 MCG 2-[address] tablet 14:35: mouth Hospita 06 daily. l multivitami 2018-09 Yes 1{tbl} QD Take 1 [...] tablet 14:35: mouth Hospita 06 daily. l multivitami 2018-09 Yes 1{tbl} QD Take 1 Me thodi n with 2-[address] minerals 14:35: mouth Hospita tablet 06 daily. l sildenafil 2018-09 Yes 50mg Take 50 [...] 20 MG 14:34: Hospita capsule 06 l ranolazine 2018-09 Yes 500mg Take 500 Me thodi (RANEXA) 2-[address] 1,000 mg 12 14:34: mouth. [facility]osp [facility] hr tablet 06 l ranolazine 2018-09 Yes 500mg Take 500 [...] tablet 00:00: mouth. Hospit a 00 l ALPRAZolam 2015-09 Yes 1{tbl} Take 1 Met hodi (XANAX) 2 1-[address] [facility] tablet 00:00: mouth. Hospit a 00 l HYDROcodone 2015-09 Yes 1{tbl} Take 1 Me thodi -acetaminop 1-[address] hen (NORCO) 00:00: mouth. [facility]osp [facility] 10-325 mg 00 l per tablet HYDROcodone 2015-09 Yes 1{tbl} Take 1 Me thodi -acetaminop 1-[address] hen (NORCO) 00:00: mouth. [facility]osp [facility] 10-325 mg 00 l per tablet Procedures This patient has no known procedures. Plan of Care Planned Activity Planned Date Details Comments Source Future Scheduled 2022-09-11 COVID-19 VACCINE (#1) [facility] Test 22:45:08 [code = COVID-19 VACCINE (#1)] Future Scheduled 2022-09-11 Hepatitis C screening [facility] Test 22:45:08 (procedure) [code = 202986791] Future Scheduled 2022-09-11 COLONOSCOPY SCREENING [facility] Test 22:45:08 [code = COLONOSCOPY SCREENING] Future Scheduled 2022-09-11 SHINGLES VACCINES (1 Met [facility] Test 22:45:08 of 2) [code = SHINGLES VACCINES (1 of 2)] Future Scheduled 2022-09-11 65+ PNEUMOCOCCAL Method[facility] Test 22:45:08 VACCINE (1 - PCV) [code = 65+ PNEUMOCOCCAL VACCINE (1 - PCV)] Future Scheduled 2022-09-11 INFLUENZA VACCINE Method [facility] Test 22:45:08 [code = INFLUENZA VACCINE] Future Scheduled 2022-05-28 HEPATITIS B VACCINES Met [facility] Test 21:45:39 (1 of 3 - 3-dose series) [code = HEPATITIS B VACCINES (1 of 3 - 3-dose series)] Future Scheduled 2022-05-28 COVID-19 VACCINE (#1) [facility] Test 21:45:39 [code = COVID-19 VACCINE (#1)] Future Scheduled 2022-05-28 Hepatitis C screening [facility] Test 21:45:39 (procedure) [code = [id number]] Future Scheduled 2022-05-28 COLONOSCOPY SCREENING [facility] Test 21:45:39 [code = COLONOSCOPY SCREENING] Future Scheduled 2022-05-28 SHINGLES VACCINES (1 Met [facility] Test 21:45:39 of 2) [code = SHINGLES VACCINES (1 of 2)] Future Scheduled 2022-05-28 65+ [facility] VACCINE (1 - PCV) [code = 65+ PNEUMOCOCCAL VACCINE (1 - PCV)] Future Scheduled 2022-05-28 INFLUENZA VACCINE Method [facility] Test 21:45:39 [code = INFLUENZA VACCINE] Results This patient has no known results.
[2022-10-01] MEDS ORDERED: HYDROCODONE/APAP 10/325 TAB ONE (01:17)
[2022-10-01] MEDS ORDERED: TDAP (DIPHTH,PERTUSS(ACELL),TET VAC) 0.5 ML VIAL IMVAC ONE (01:18)
--- NOTE | 2022-10-01 01:27 | ER ---
Nurse's Notes [facility] Name: Yousuf Braxton Age: 66 yrs Sex: Male : 1955 Arrival Date: 10/01/2022 Time: 00:52 Bed 19 Private MD: Diagnosis: 2-part nondisplaced fracture of surgical neck of right humerus;Laceration without foreign body of right forearm Presentation: 10/01 00:52 Chief complaint: EMS states: pt was doing laundry in the garage and tripped on his lawn as6 mower and fell on his right arm. Coronavirus screen: At this time, the client does not indicate any symptoms associated with coronavirus-19. Ebola Screen: No symptoms or risks identified at this time. Risk Assessment: Do you want to hurt yourself or someone else? Patient reports no desire to harm self or others. Onset of symptoms was September 30, 2022. 00:52 Method Of Arrival: EMS: [facility] as6 00:52 Acuity: JORDY 4 as6 01:06 Initial Sepsis Screen: Does the patient meet any 2 criteria? No. Patient's initial as6 sepsis screen is negative. Does the patient have a suspected source of infection? No. Patient's initial sepsis screen is negative. Historical: - Allergies: 00:55 Codeine; as6 - PMHx: 00:55 CAD; Diabetes - NIDDM; Hypertension; Myocardial infarction; High Cholesterol; as6 Pancreatitis; - Immunization history:: Client reports receiving the 2nd dose of the Covid vaccine, pfizer. - Social history:: Smoking status: Reported history of juuling and/or vaping. - Family history:: not pertinent. Screenin:39 [facility] ED Fall Risk Assessment (Adult) History of falling in the last 3 months, as6 including since admission Yes- single mechanical fall (1 pt) Score/Fall Risk Level 0 - 2 = Low Risk. Abuse screen: Denies threats or abuse. Denies injuries from another. Nutritional screening: No deficits noted. Tuberculosis screening: No symptoms or risk factors identified. Assessment: 01:00 General: Appears uncomfortable, Behavior is calm, cooperative. Pain: Complains of pain as6 in right arm and posterior aspect of right shoulder and anterior aspect of right shoulder and right shoulder. Neuro: Level of Consciousness is awake, alert, obeys commands, Oriented to person, place, time, situation. Cardiovascular: Capillary refill < 3 seconds Patient's skin is warm and dry. Respiratory: Respiratory effort is even, unlabored, Respiratory pattern is regular, symmetrical. Derm: Wound noted dorsal aspect of right forearm Wound is skin tear. Vital Signs: 01:05 BP 125 / 73; Pulse 79; Resp 16 S; Temp 97.7(O); Pulse Ox 100% on R/A; Weight 83.91 kg as6 (R); Height 5 ft. 6 in. (167.64 cm) (R); Pain 9/10; 02:00 BP 150 / 85; Pulse 68; Resp 20 S; Pulse Ox 98% on R/A; as6 03:00 BP 145 / 73; Pulse 68; Resp 19 S; Pulse Ox 95% on R/A; as6 01:05 Body Mass Index 29.86 (83.91 kg, 167.64 cm) as6 [place] Coma Score: 00:55 Eye Response: spontaneous(4). Verbal Response: oriented(5). Motor Response: obeys [facility] commands(6). Total: 15. ED Course: 00:52 Patient arrived in ED. mw2 00:52 Kareem Shaikh RN is Primary Nurse. as6 00:52 Romulo Aguilar MD is Attending Physician. justice 00:55 Triage completed. as6 00:55 Arm band placed on. as6 01:00 Maintain EMS IV. Dressing intact. Good blood return noted. Site clean \T\ dry. Gauge \T\ as 6 site: 20 L hand . 01:00 Sling \T\ swathe to right arm. Wound care: to skin tear located on dorsal aspect of right as6 forearm was cleaned with dressed with Neosporin, 4X4s, Kerlix. 01:15 Shoulder Right (2 View) XRAY In Process Unspecified. EDMS 01:26 Dru Hernandez MD is Referral Physician. justice 01:39 Bed in low position. Call light in reach. Side rails up X2. as6 01:54 No provider procedures requiring assistance completed. as6 04:05 IV discontinued, intact, bleeding controlled, No redness/swelling at site. Pressure as6 dressing applied. Administered Medications: 01:15 Drug: Tetanus Toxoid,Adsorbed 0.5 ml {Customer Sales Service Manager: [employer] Exp: vc1 04/12/2023. Lot #: [id number]. } Route: IM; Site: right ventrogluteal; 03:28 Follow up: Response: (VIS) Vaccine information sheet provided today. Questions and/or as6 concerns addressed. VIS edition date: May 04, 2021.; No adverse reaction 01:26 Not Given (Duplicate Order): [place] (HYDROcodone-acetaminophen) 10 mg-325 mg 1 tabs PO justice once 01:28 Drug: Zofran (Ondansetron) 4 mg Route: IVP; Site: left hand; vc1 03:28 Follow up: Response: No adverse reaction as6 01:30 Drug: fentaNYL (PF) 50 mcg Route: IVP; Site: left hand; vc1 03:28 Follow up: Response: No adverse reaction as6 01:54 Drug: Bactroban (mupirocin) Ointment 2 % 1 application Route: Topical; Site: affected as6 area; 03:27 Follow up: Response: No adverse reaction as6 03:42 Drug: fentaNYL (PF) 25 mcg Route: IVP; Site: left hand; as6 04:26 Follow up: Response: No adverse reaction as6 Medication: 01:39 Vaccine Information Statement (VIS) provided today. Questions and/or concerns as6 addressed. VIS edition date: May 04, 2021. Outcome: 01:26 Discharge ordered by MD. rendon 01:55 Condition: stable as6 04:25 Discharged to home ambulatory. as6 04:25 Discharge instructions given to patient, Instructed on discharge instructions, follow up and referral plans. medication usage, wound care, Demonstrated understanding of instructions, follow-up care, medications, wound care, Prescriptions given X 2. 04:25 Patient left the ED. as6 Signatures: Dispatcher [employer] Romulo Luna MD MD cha Gatti, MyKena mw2 Kareem Shaikh RN RN as6 Melanie Hodge RN RN vc1
--- NOTE | 2022-10-01 01:27 | EDPHYS ---
Physician Documentation [facility] Name: Yousuf Braxton Age: 66 yrs Sex: Male : 1955 Arrival Date: 10/01/2022 Time: 00:52 Bed 19 Private MD: BRITTANY Physician Romulo Aguilar HPI: 10/01 00:55 This 66 yrs old Male presents to ER via EMS with complaints of fall, right justice shoulder injury. 00:55 The patient or guardian complains of decreased range of motion, pain, swelling. right justice shoulder. Context: The problem was sustained at home, resulted from a fall, while walking, The patient experiences decreased range of motion, when rotates arm, The patient notes a deformity, swollen. Onset: The symptoms/episode began/occurred just prior to arrival. Modifying factors: the symptoms are alleviated by remaining still, shoulder immobilizer, The symptoms are aggravated by lifting weight, movement, rotation of arm. Associated signs and symptoms: The patient has no apparent associated signs or symptoms. The patient or guardian complains of decreased range of motion, injury, pain, that is acute. The complaints affect the anterior aspect of right shoulder and posterior aspect of right shoulder. Context: The problem was sustained at home, on a street or driveway. Historical: - Allergies: 00:55 Codeine; as6 - PMHx: 00:55 CAD; Diabetes - NIDDM; Hypertension; Myocardial infarction; High Cholesterol; as6 Pancreatitis; - Immunization history:: Client reports receiving the 2nd dose of the Covid vaccine, pfizer. - Social history:: Smoking status: Reported history of juuling and/or vaping. - Family history:: not pertinent. ROS: 00:55 Constitutional: Negative for fever, chills, and weight loss, Eyes: Negative for injury, justice pain, redness, and discharge, ENT: Negative for injury, pain, and discharge, Neck: Negative for injury, pain, and swelling, Cardiovascular: Negative for chest pain, palpitations, and edema, Respiratory: Negative for shortness of breath, cough, wheezing, and pleuritic chest pain, Abdomen/GI: Negative for abdominal pain, nausea, vomiting, diarrhea, and constipation, Back: Negative for injury and pain, : Negative for injury, bleeding, discharge, and swelling, Skin: Negative for injury, rash, and discoloration, Neuro: Negative for headache, weakness, numbness, tingling, and seizure, Psych: Negative for depression, anxiety, suicide ideation, homicidal ideation, and hallucinations, Allergy/Immunology: Negative for hives, rash, and allergies, Endocrine: Negative for neck swelling, polydipsia, polyuria, polyphagia, and marked weight changes, Hematologic/Lymphatic: Negative for swollen nodes, abnormal bleeding, and unusual bruising. 00:55 MS/extremity: Positive for decreased range of motion, pain, swelling, tenderness, of the anterior aspect of right shoulder and posterior aspect of right shoulder. Exam: 00:55 Constitutional: This is a well developed, well nourished patient who is awake, alert, justice and in no acute distress. Head/Face: Normocephalic, atraumatic. Eyes: Pupils equal round and reactive to light, extra-ocular motions intact. Lids and lashes normal. Conjunctiva and sclera are non-icteric and not injected. Cornea within normal limits. Periorbital areas with no swelling, redness, or edema. ENT: Nares patent. No nasal discharge, no septal abnormalities noted. Tympanic membranes are normal and external auditory canals are clear. Oropharynx with no redness, swelling, or masses, exudates, or evidence of obstruction, uvula midline. Mucous membranes moist. Neck: Trachea midline, no thyromegaly or masses palpated, and no cervical lymphadenopathy. Supple, full range of motion without nuchal rigidity, or vertebral point tenderness. No Meningismus. Chest/axilla: Normal chest wall appearance and motion. Nontender with no deformity. No lesions are appreciated. Cardiovascular: Regular rate and rhythm with a normal S1 and S2. No gallops, murmurs, or rubs. Normal PMI, no JVD. No pulse deficits. Respiratory: Lungs have equal breath sounds bilaterally, clear to auscultation and percussion. No rales, rhonchi or wheezes noted. No increased work of breathing, no retractions or nasal flaring. Abdomen/GI: Soft, non-tender, with normal bowel sounds. No distension or tympany. No guarding or rebound. No evidence of tenderness throughout. Back: No spinal tenderness. No costovertebral tenderness. Full range of motion. Male : Normal genitalia with no discharge or lesions. Skin: Warm, dry with normal turgor. Normal color with no rashes, no lesions, and no evidence of cellulitis. Neuro: Awake and alert, GCS 15, oriented to person, place, time, and situation. Cranial nerves II-XII grossly intact. Motor strength 5/5 in all extremities. Sensory grossly intact. Cerebellar exam normal. Normal gait. Psych: Awake, alert, with orientation to person, place and time. Behavior, mood, and affect are within normal limits. 00:55 Musculoskeletal/extremity: Extremities: grossly normal except: noted in the anterior aspect of right shoulder and posterior aspect of right shoulder: decreased ROM, ROM: limited active range of motion, in the anterior aspect of right shoulder and posterior aspect of right shoulder, limited passive range of motion, limited active range of motion due to pain, limited passive range of motion due to pain, Circulation is intact in all extremities. Sensation intact. Compartment Syndrome exam of affected extremity: the anterior aspect of right shoulder and posterior aspect of right shoulder severe pain, with passive ROM, Joints: All joints are normal except the right shoulder displays deformity, painful range of motion, swelling, tenderness. Vital Signs: 01:05 BP 125 / 73; Pulse 79; Resp 16 S; Temp 97.7(O); Pulse Ox 100% on R/A; Weight 83.91 kg as6 (R); Height 5 ft. 6 in. (167.64 cm) (R); Pain 9/10; 02:00 BP 150 / 85; Pulse 68; Resp 20 S; Pulse Ox 98% on R/A; as6 03:00 BP 145 / 73; Pulse 68; Resp 19 S; Pulse Ox 95% on R/A; as6 01:05 Body Mass Index 29.86 (83.91 kg, 167.64 cm) as6 Leonor Coma Score: 00:55 Eye Response: spontaneous(4). Verbal Response: oriented(5). Motor Response: obeys justice commands(6). Total: 15. MDM: 00:52 Patient medically screened. justice 01:03 Differential diagnosis: Anterior dislocation with fracture, tendonitis, dislocation. justice Data reviewed: vital signs, nurses notes, radiologic studies, plain films. Data interpreted: desk monitor: rate is 85 beats/min, rhythm is regular, Pulse oximetry: on room air is 96 %. Test interpretation: by ED physician or midlevel provider: plain radiologic studies. Counseling: I had a detailed discussion with the patient and/or guardian regarding: the historical points, exam findings, and any diagnostic results supporting the discharge/admit diagnosis, radiology results, the need for outpatient follow up, for definitive care, a family practitioner, a orthopedic surgeon. 10/01 00:55 Order name: Shoulder Right (2 View) XRAY [facility] 10/01 00:55 Order name: Ice pack; Complete Time: 01:54 justice 10/01 00:55 Order name: Shoulder Immobilizer; Complete Time: :54 justice 10/01 00:55 Order name: Wound Care; Complete Time: 01:54 justice Administered Medications: 01:15 Drug: Tetanus Toxoid,Adsorbed 0.5 ml {[employer]: [employer] Exp: vc1 04/12/2023. Lot #: [id number]. } Route: IM; Site: right ventrogluteal; 03:28 Follow up: Response: (VIS) Vaccine information sheet provided today. Questions and/or as6 concerns addressed. VIS edition date: May 04, 2021.; No adverse reaction 01:26 Not Given (Duplicate Order): [place] (HYDROcodone-acetaminophen) 10 mg-325 mg 1 tabs PO justice once 01:28 Drug: Zofran (Ondansetron) 4 mg Route: IVP; Site: left hand; vc1 03:28 Follow up: Response: No adverse reaction as6 01:30 Drug: fentaNYL (PF) 50 mcg Route: IVP; Site: left hand; vc1 03:28 Follow up: Response: No adverse reaction as6 01:54 Drug: Bactroban (mupirocin) Ointment 2 % 1 application Route: Topical; Site: affected as6 area; 03:27 Follow up: Response: No adverse reaction as6 03:42 Drug: fentaNYL (PF) 25 mcg Route: IVP; Site: left hand; as6 04:26 Follow up: Response: No adverse reaction as6 Disposition Summary: 10/01/22 01:26 Discharge Ordered Location: Home justice Problem: new justice Symptoms: have improved justice Condition: Stable justice Diagnosis - 2-part nondisplaced fracture of surgical neck of right humerus justice - Laceration without foreign body of right forearm justice Followup: justice - With: Private Physician - When: 2 - 3 days - Reason: Recheck today's complaints, Continuance of care, Re-evaluation by your physician Followup: justice - With: - When: 2 - 3 days - Reason: Recheck today's complaints, Re-evaluation by your physician Discharge Instructions: - Discharge Summary Sheet justice - Humerus Fracture Treated With Immobilization justice - Skin Tear justice - Humerus Fracture Treated With Immobilization, [id number] justice - Skin Tear, [id number] justice Forms: - Medication Reconciliation Form justice - Thank You Letter justice - Antibiotic Education justice - Prescription Opioid Use [facility] Prescriptions: - Centany 2 % Topical ointment - apply 1 application by TOPICAL route 3 times per day; 30 gram; Refills: 0, [facility] Product Selection Permitted - Ibuprofen 600 mg Oral Tablet - take 1 tablet by ORAL route every 8 hours As needed take with food; 21 tablet; [facility] Refills: 0, Product Selection Permitted Signatures: Dispatcher [employer] Romulo Luna MD MD cha Slawson, Ashby, RN RN as6 Melanie Hodge RN RN vc1
[2022-10-01] MEDS ORDERED: ONDANSETRON 4 MG/2 ML VIAL ONE (01:30)
[2022-10-01] MEDS ORDERED: FENTANYL CITR 100 MCG/2 ML ONE ×2 (01:34→03:38)
[2022-10-01 05:51] VITALS: BP 145/73; TEMP 97.7; O2SAT 95
--- NOTE | 2022-10-01 13:54 | RAD REPORT ---
EXAM DESCRIPTION: RAD - Shoulder Right 2 View - 10/01/2022 1:13 am CLINICAL HISTORY: PAIN Shoulder Right 2 View COMPARISON: None. TECHNIQUE: XR SHOULDER 2 OR MORE VIEWS 10/01/2022 12:55 AM LAB SCIENTIST FINDINGS: There is a mildly displaced and angulated fracture of the right humeral neck. There is alejandra rowing of the right acromioclavicular joint. Soft tissues are unremarkable. IMPRESSION: Right humeral neck fracture. Electronically signed by: Fawad Ashton MD 10/01/2022 1:29 AM LAB SCIENTIST Due to temporary technical issues with the PACS/Fluency reporting system, reports are being signed by the in house radiologists without review as a courtesy to insure prompt reporting. The interpreting radiologist is fully responsible for the content of the report.
== END 2022-10-01 04:25 | disposition home or self-care (01) ==
LOC: ER 00:49
DX: S42.224A 2-part nondisplaced fracture of surgical neck of right humerus, initial encounter for closed fracture (principal); S51.811A Laceration without foreign body of right forearm, initial encounter; Z88.5 Allergy status to narcotic agent; Z23 Encounter for immunization
CPT/HCPCS: 73030; J3010 ×2; J2405; 90471; 96374; 96375; 99284

== ENCOUNTER 2023-11-05 16:36 | Observation (INO) | payer OTHER ==
[2023-11-05 18:06] LABS: Absolute Lymphocytes (CBC) 1.2 K/uL (0.7-4.9); Hematocrit 40.7 % (39.6-49.0); Lymphocytes % 22.6 % (15.3-44.8); MCV 94.8 fL (80-100); MPV 8.8 fL (7.6-11.3); Platelets 150 thou/uL (152-406); RBC Red Blood Cell Count 4.29 M/uL (4.33-5.43)
[2023-11-05 18:12] LABS: Protime INR 0.93
[2023-11-05] MEDS ORDERED: NA CHLORIDE 0.9% 1,000 ML ONE ×2 (18:17→21:53)
[2023-11-05 18:29] LABS: Albumin 3.4 g/dL (3.4-5.0); Bilirubin Direct 0.2 mg/dL (0-0.2); Bilirubin Indirect, Calculated 0.5 mg/dL (0.2-0.8); Bilirubin Total 0.7 mg/dL (0.2-1.0); Protein, Total 7.3 g/dL (6.4-8.2); Troponin High Sensitivity 13.3 pg/mL (<58.9)
[2023-11-05 18:30] LABS: Magnesium 1.9 mg/dL (1.6-2.4); Potassium 4.7 mEq/L (3.5-5.1)
--- NOTE | 2023-11-05 19:13 | RAD REPORT ---
EXAM DESCRIPTION: RADChest Single View11/05/2023 6:12 pm CLINICAL HISTORY: CHEST PAIN COMPARISON: Chest Single View dated 06/25/2023; Chest Single View dated 06/20/2022; Chest Single View dated 12/31/2020; Chest Single View dated 05/18/2020 TECHNIQUE: Portable AP view of the chest. FINDINGS: The lungs are clear. No pneumothorax or effusion. The cardiomediastinal contours are unre markable. IMPRESSION: No acute cardiopulmonary process.
--- NOTE | 2023-11-05 20:03 | ER ---
Nurse's Notes [facility] Name: Yousuf Braxton Age: 68 yrs Sex: Male : 1955 Arrival Date: 11/05/2023 Time: 16:36 Bed 13 Private MD: Diagnosis: Chest pain, unspecified;Acute kidney failure, unspecified;Dehydration Presentation: 11/05 17:06 Chief complaint: Patient states: sent over from [place] for low bp "80/50", does not ko1 take bp medication. Coronavirus screen: At this time, the client does not indicate any symptoms associated with coronavirus-19. Ebola Screen: No symptoms or risks identified at this time. Initial Sepsis Screen: Does the patient meet any 2 criteria? No. Patient's initial sepsis screen is negative. Does the patient have a suspected source of infection? No. Patient's initial sepsis screen is negative. Risk Assessment: Do you want to hurt yourself or someone else? Patient reports no desire to harm self or others. Onset of symptoms is unknown. 17:06 Method Of Arrival: Ambulatory ko1 17:06 Acuity: JORDY 3 ko1 Triage Assessment: 17:09 General: Appears in no apparent distress. Behavior is cooperative, appropriate for age. ko1 Pain: Denies pain. Cardiovascular: Reports chest pain, lightheadedness, syncope. Historical: - Allergies: 17:09 Codeine; ko1 - PMHx: 17:09 CAD; Diabetes - NIDDM; High Cholesterol; Myocardial infarction; Pancreatitis; ko1 Hypertension; - Immunization history:: Adult Immunizations up to date. - Social history:: Smoking status: Patient denies any tobacco usage or history of. Screenin:[facility] ED Fall Risk Assessment (Adult) History of falling in the last 3 months, bp including since admission No falls in past 3 months (0 pts). Abuse screen: Denies threats or abuse. Denies injuries from another. Nutritional screening: No deficits noted. Tuberculosis screening: No symptoms or risk factors identified. Assessment: 17:25 General: PT ENDORSES +DIZZINESS WITH STANDING, +ORTHOSTATIC. bp 22:50 Reassessment: Patient and/or family updated on plan of care and expected duration. Pain ha1 level reassessed. Patient is alert, oriented x 3, equal unlabored respirations, skin warm/dry/pink. 22:55 Reassessment: attempted to give report. ha1 Vital Signs: 17:06 BP 98 / 59; Pulse 94; Resp 16; Temp 97.1; Pulse Ox 100% ; ko1 17:25 BP 94 / 63 Supine; Pulse 79; bp 17:27 BP 82 / 50 Standing; Pulse 94; bp 19:24 BP 121 / 73; Pulse 70; Pulse Ox 100% ; Pain 0/10; ap3 22:31 BP 114 / 67; Pulse 66; Resp 17 S; Pulse Ox 99% on R/A; ha1 19:24 Pain Scale: Adult ap3 ED Course: 16:41 Patient arrived in ED. im 17:07 Kassi Fuller FNP-C is PHCP. kb 17:07 Robert Gonzalez DO is Attending Physician. kb 17:09 Triage completed. ko1 17:09 Arm band placed on right wrist. Patient placed in an exam room, on a stretcher, Patient ko1 notified of wait time. 17:13 Paul Li, RN is Primary Nurse. bp 17:25 Patient has correct armband on for positive identification. Client placed on continuous bp cardiac and pulse oximetry monitoring. NIBP monitoring applied. 17:25 Patient maintains SpO2 saturation greater than 95% on room air. bp 18:13 Chest Single View XRAY In Process Unspecified. EDMS 20:01 Cullen Phillip MD is Hospitalizing Provider. kb 23:27 Provided Education on: need for admit . ha1 23:27 No provider procedures requiring assistance completed. Patient admitted, IV remains in ha1 place. Administered Medications: 18:30 Drug: NS 0.9% IV 1000 ml IV at 1000 ml once Route: IV; Rate: 1000 ml; Site: right bp forearm; Medication: 23:27 VIS not applicable for this client. ha1 Outcome: 20:02 Decision to Hospitalize by Provider. kb 23:27 Admitted to Med/surg accompanied by tech, via wheelchair, room 217, with chart, Report ha1 called to MUMTAZ Amaro 23:27 Condition: stable 23:27 Discharge instructions given to patient, Instructed on the need for admit, Demonstrated understanding of instructions, 23:29 Patient left the ED. ha1 Signatures: Dispatcher [employer] EDDE Kassi Fuller FNP-C FNP-CkPaul Andrade, RN RN bp Prokisch, Leti, RN RN ap3 Audrey Olmedo, RN RN ha1 Jazmin Echeverria, RN RN ko1 Diamante Lawson
--- NOTE | 2023-11-05 20:03 | EDPHYS ---
Physician Documentation [facility] Name: Yousuf Braxton Age: 68 yrs Sex: Male : 1955 Arrival Date: 11/05/2023 Time: 16:36 Bed 13 Private MD: ED Physician Robert Gonzalez HPI: 11/05 20:23 This 68 yrs old Male presents to ER via Ambulatory with complaints of Low blood kb pressure, Chest Pain. 20:23 Pt is a 68 year old male who presents after having a syncopal episode at home, then kb checking his BP and it was 80/55. States he has had some chest pain as well. States the home health nurse caught him so he didn't hit his head or sustain any injuries. Historical: - Allergies: 17:09 Codeine; ko1 - PMHx: 17:09 CAD; Diabetes - NIDDM; High Cholesterol; Myocardial infarction; Pancreatitis; ko1 Hypertension; - Immunization history:: Adult Immunizations up to date. - Social history:: Smoking status: Patient denies any tobacco usage or history of. ROS: 20:24 Constitutional: Negative for fever, chills, and weight loss, kb 20:24 Cardiovascular: Positive for chest pain, 20:24 Neuro: Positive for syncope, 20:24 All other systems are negative, Exam: 20:24 Constitutional: This is a well developed, well nourished patient who is awake, alert, kb and in no acute distress. Head/Face: Normocephalic, atraumatic. ENT: Moist Mucous membranes Cardiovascular: Regular rate Respiratory: Respirations even and unlabored. No increased work of breathing. Talking in full sentences Abdomen/GI: Soft, non-tender. No distention Skin: Warm, dry with normal turgor. Normal color. MS/ Extremity: Pulses equal, no cyanosis. Neurovascular intact. Full, normal range of motion. Neuro: Awake and alert, GCS 15, oriented to person, place, time, and situation. Moves all extremities. Normal gait. Vital Signs: 17:06 BP 98 / 59; Pulse 94; Resp 16; Temp 97.1; Pulse Ox 100% ; ko1 17:25 BP 94 / 63 Supine; Pulse 79; bp 17:27 BP 82 / 50 Standing; Pulse 94; bp 19:24 BP 121 / 73; Pulse 70; Pulse Ox 100% ; Pain 0/10; ap3 22:31 BP 114 / 67; Pulse 66; Resp 17 S; Pulse Ox 99% on R/A; ha1 19:24 Pain Scale: Adult ap3 MDM: 17:08 Patient medically screened. kb 20:24 Differential Diagnosis: cardiac arrhythmia, idiopathic syncope, vasovagal episode, kb dehydration, OH, abnormal ekg, CAD. Data reviewed: vital signs, nurses notes. Consideration of Admission/Observation Patient was admitted/placed on observation. Escalation of care including admission/observation considered. Management of patient was discussed with the following: Hospitalist: Dr Phillip accepts pt for admission. Counseling: I had a detailed discussion with the patient and/or guardian regarding the historical points, exam findings, and any diagnostic results supporting the discharge/admit diagnosis, lab results, radiology results, the need for further work-up and treatment in the hospital. 11/05 17:23 Order name: Basic Metabolic Panel; Complete Time: 18:33 kb 11/05 17:23 Order name: CBC with Diff; Complete Time: 18:09 kb 11/05 17:23 Order name: Hepatic Function; Complete Time: 18:33 kb 11/05 17:23 Order name: Magnesium; Complete Time: 18:33 kb 11/05 17:23 Order name: Protime (+inr); Complete Time: 18:15 kb 11/05 17:23 Order name: Ptt, Activated; Complete Time: 18:15 kb 11/05 17:23 Order name: Troponin High Sensitivity; Complete Time: 18:33 kb 11/05 21:01 Order name: Basic Metabolic Panel EDMS 11/05 21:01 Order name: Basic Metabolic Panel EDMS 11/05 21:01 Order name: CBC with Automated Diff EDMS 11/05 21:01 Order name: CBC with Automated Diff EDMS 11/05 21:30 Order name: Glucose, Ancillary Testing; Complete Time: 21:45 EDMS 11/05 17:23 Order name: Chest Single View XRAY; Complete Time: 19:22 kb 11/05 17:23 Order name: EKG; Complete Time: 17:23 kb 11/05 17:23 Order name: Cardiac monitoring; Complete Time: 17:44 kb 11/05 17:23 Order name: EKG - Nurse/Tech; Complete Time: 17:44 kb 11/05 17:23 Order name: IV Saline Lock; Complete Time: 17:44 kb 11/05 17:23 Order name: Labs collected and sent; Complete Time: 17:44 kb 11/05 17:23 Order name: NPO; Complete Time: 17:44 kb 11/05 17:23 Order name: O2 Per Protocol; Complete Time: 17:44 kb 11/05 17:23 Order name: O2 Sat Monitoring; Complete Time: 17:44 kb 11/05 17:23 Order name: Orthostatics; Complete Time: 17:44 kb 11/05 19:22 Order name: Vital Signs; Complete Time: 19:24 kb Administered Medications: 18:30 Drug: NS 0.9% IV 1000 ml IV at 1000 ml once Route: IV; Rate: 1000 ml; Site: right bp forearm; Disposition: 11/06 10:27 I was immediately available on-site in the Emergency Department for consultation in the ms3 care of the patient. Disposition Summary: 11/05/23 20:02 Hospitalization Ordered Notes: Hospitalization Status: Observation kb Provider: Cullen Phillip Location: Telemetry/MedSurg (observation) kb Condition: Stable kb Problem: new kb Symptoms: are unchanged kb Bed/Room Type: Standard Room Assignment: 217(11/05/23 22:17) vc1 Diagnosis - Chest pain, unspecified kb - Acute kidney failure, unspecified kb - Dehydration kb Forms: - Medication Reconciliation Form kb - SBAR form kb - Leadership Thank You Letter kb Signatures: Dispatcher [employer] Kassi Atkins, [employer]-C [employer]-Paul Ko RN RN Robert Mar DO DO ms3 Melanie Hodge RN RN vc1 Jazmin Echeverria, RN RN ko1 Corrections: (The following items were deleted from the chart) 11/05 22:17 20:02 kb vc1
[2023-11-05] MEDS ORDERED: MAGNESIUM HYDROXIDE 8% 30 ML PO PRN (20:54)
[2023-11-05] MEDS ORDERED: ACETAMINOPHEN 325 MG TABLET PO PRN (20:54)
[2023-11-05] MEDS ORDERED: ONDANSETRON 4 MG/2 ML VIAL IV PRN (20:54)
[2023-11-05] MEDS: NA CHLORIDE 0.9% 1,000 ML IV SCH (21:00)
--- NOTE | 2023-11-05 21:32 | P.HP ---
Certification for Inpatient Patient admitted to: Observation With expected LOS: <2 Midnights Practitioner: I am a practitioner with admitting privileges, knowledge of patient current condition, hospital course, and medical plan of care. Services: Services provided to patient in accordance with Admission requirements found in Title 42 Section 412.3 of the Code of Federal Regulations Patient History Date of Service: 11/06/23 Reason for admission: Dizzy spells, low blood pressure, acute kidney injury. History of Present Illness: 64-year-old male patient who has a medical history significant for coronary artery disease status post stent placement x 4, diabetes type 2, hypertension, hyperlipidemia who also was evaluated for episode of low blood pressure and dizzy spells. He was evaluated by home health nurse when he began to have dizzy spells and was noted to have significantly low blood pressure. Systolic was in the 80s. He was admitted to the emergency room for follow-up/management of suspected presyncopal episode and imaging studies and initial labs and vitals were no overtly concerning. His creatinine was elevated at 2.3 with EGFR of 30 from last known baseline of greater than 60 in May 2023. He was admitted for inpatient care for workup of suspected ACS and also to treat his acute kidney injury related issues. Allergies codeine [Codeine] Allergy (Intermediate, Verified 05/19/20 01:10) Hives/Rash Home Medications: ALPRAZolam [Alprazolam] 2 mg PO BID 05/19/20 Dulaglutide [Trulicity] 0.5 ml SQ EVERY 7TH DAY 05/19/20 Hydrocodone/Acetaminophen [Hydrocodone-Acetamin 10-325 mg] 1 tab PO QID PRN 05/19/20 Ranolazine [Ranolazine ER] 1,000 mg PO BID 05/19/20 glipiZIDE [Glipizide] 10 mg PO BID 05/19/20 Atorvastatin Calcium [Lipitor] 80 mg PO BEDTIME #30 tab 01/02/21 Fluticasone/Umeclidin/Vilanter [Trelegy Ellipta 100-62.5-25] 1 puff IN DAILY 06/21/22 Gabapentin 1,200 mg PO BID 06/25/23 Ticagrelor [Brilinta*] 90 mg PO BID 06/25/23 Trazodone [Desyrel*] 50 mg PO BEDTIME 06/25/23 Aspirin Chewable [Aspirin Chewable*] 81 mg PO DAILY tab.chew 06/28/23 Metoprolol Tartrate [Lopressor*] 25 mg PO BID 6AM 6PM #60 tab 06/28/23 - Past Medical/Surgical History Diabetic: Yes -: CAD -: Diabetes -: HTN -: MD -: Pancreatitis -: HLD -: Angioplasty -: Heart stent x3 -: R ankle sx Psychosocial/ Personal History: Patient lives at home alone. - Family History Father Notes: parkinsons, dementia Mother -: Lung disease - Social History Alcohol use: Yes CD- Drugs: No Caffeine use: Yes Review of Systems General: Weakness, Malaise Eyes: Unremarkable ENT: Unremarkable Respiratory: Unremarkable Cardiovascular: Light Headedness, As per HPI Gastrointestinal: Unremarkable Genitourinary: Unremarkable Musculoskeletal: Unremarkable Integumentary: Unremarkable Neurological: Weakness, As per HPI Physical Examination - Physical Exam General: Alert, Oriented x3 HEENT: Atraumatic, Normocephalic Neck: Supple Respiratory: Normal air movement Cardiovascular: Regular rate/rhythm, Normal S1 S2 Gastrointestinal: Soft and benign Musculoskeletal: No swelling Neurological: Normal speech, Normal strength at 5/5 x4 extr - Studies Laboratory Data (last 24 hrs) 11/05/23 11/05/23 11/05/23 17:48 17:48 17:48 WBC 5.30 Hgb 14.1 Hct 40.7 Plt Count 150 L PT 10.3 INR 0.93 APTT 19.9 L Sodium 136 Potassium 4.7 BUN 28 H Creatinine 2.31 H Glucose 171 H Magnesium 1.9 Total Bilirubin 0.7 AST 21 ALT 30 Alkaline Phosphatase 96 Assessment and Plan - Plan Hypotension: Deemed secondary to Medication side effect/volume depletion. Will continue isotonic fluid for hydration and monitor trend of vitals. Will continue to avoid antihypertensive medication doses at this time. Acute kidney injury: Baseline creatinine was less than 1 in May 2023. Creatinine is 2.3 today. we will hydrate with isotonic fluid and monitor trend of kidney function closely. Will continue to dose medication for estimated glomerular filtration and avoid exposure to known nephrotoxins Suspected ACS: Since patient has significant history of coronary artery disease, will trend troponin and follow plans. We may consult cardiology for management recommendation. Diabetes type 2: We will monitor blood sugar ACHS and continue sliding scale insulin for glucose control. He will be continued on carb restricted diet. History of coronary artery disease: We will continue statin therapy and aspirin therapy with Brilinta. Prophylaxis: Lovenox for DVT prophylaxis CODE STATUS: Full code Disposition: We will manage his acute kidney injury episode, treat suspected ACS and will be discharged when he is deemed clinically stable - Advance Directives Does patient have a Living Will: No Does patient have a Durable POA for Healthcare: No
[2023-11-05] MEDS: GABAPENTIN 300 MG CAP PO ONE (22:00)
[2023-11-05] MEDS ORDERED: GABAPENTIN 300 MG CAP ONE (22:35)
[2023-11-05 23:41] VITALS: BMI 26.3
[2023-11-06] MEDS: GABAPENTIN 300 MG CAP PO SCH ×2 (00:01→00:34)
[2023-11-06] MEDS: HEPARIN 5000 UNIT/ML 1 ML VIAL SQ SCH (00:34)
[2023-11-06 06:10] LABS: Absolute Lymphocytes (CBC) 1.8 K/uL (0.7-4.9); Hematocrit 37.5 % (39.6-49.0); Lymphocytes % 34.6 % (15.3-44.8); MCV 95.5 fL (80-100); MPV 9.1 fL (7.6-11.3); Platelets 137 thou/uL (152-406); RBC Red Blood Cell Count 3.92 M/uL (4.33-5.43)
[2023-11-06 06:32] LABS: Potassium 4.6 mEq/L (3.5-5.1)
--- NOTE | 2023-11-06 07:16 | RAD REPORT ---
EXAM DESCRIPTION: US - Renal Ultrasound-Complete - 11/06/2023 6:06 am CLINICAL HISTORY: Eval of suspected CKD COMPARISON: Stone Protocol dated 10/28/2017 FINDINGS: Both kidneys are normal in size, shape and echotexture. The right kidney measures 10.3 cm. No hydronephrosis, focal mass or perinephric fluid. The left kidney measures 11.4 cm. Small echogenic focus measuring 3 millimeters in left kidney may re present a nonobstructing stone. No focal mass or perinephric fluid. The urinary bladder is incompletely distended without gross abnormality seen. IMPRESSION: No evidence of hydronephrosis. Possible 3 mm nonobstructing left renal stone.
--- NOTE | 2023-11-06 13:24 | EKG ---
Test Date: 2023-11-05 Test Time: 17:30:48 Cottrell Blower: BP MEASUREMENT RESULTS: Intervals: Rate: 78 ME: 154 QRSD: 132 QT: 398 QTc: 453 [place]: P: 61 ME: 154 QRS: -49 T: 26 INTERPRETIVE STATEMENTS: Normal sinus rhythm Right bundle branch block Left anterior fascicular block Bifascicular block Abnormal ECG Compared to ECG 06/25/2023 12:38:37 Left anterior fascicular block now present Bifascicular block now present Left-axis deviation no longer present Electronically Signed On 11-06-23 13:22:01 PLATE STACKER HAND by Lobo Roach
[2023-11-06] MEDS ORDERED: TICAGRELOR 90 MG TABLET PO SCH (23:59)
[2023-11-07 04:49] VITALS: BP 114/67; TEMP 97.1; O2SAT 99
== END 2023-11-06 11:43 | disposition home or self-care (01) ==
LOC: ER 16:36 → ERHOLD 20:54 → 2ND 22:24
PROVIDERS: ADMIT Internal Medicine Nephrology; ATTEND Hospitalist
DX: N17.9 Acute kidney failure, unspecified (principal); E86.9 Volume depletion, unspecified; E86.0 Dehydration; I95.9 Hypotension, unspecified; I25.2 Old myocardial infarction; I25.10 Atherosclerotic heart disease of native coronary artery without angina pectoris; E11.9 Type 2 diabetes mellitus without complications; I10 Essential (primary) hypertension; E78.5 Hyperlipidemia, unspecified; Z95.5 Presence of coronary angioplasty implant and graft; Z88.5 Allergy status to narcotic agent
CPT/HCPCS: 93005; 85025 ×2; 80048 ×2; 36415; 83735; 85610; 82947 ×2; 80076; 85730; 84484 ×2; 71045; 76770; J1644 ×2; J7030 ×3; G0378

== ENCOUNTER → 2024-10-04 | Day surgery (SDC) | payer OTHER ==
[2024-10-04 11:36] LABS: Absolute Eosinophils 0.1 K/uL (0-0.5); Absolute Lymphocytes (CBC) 1.4 K/uL (0.7-4.9); Absolute Monocytes 0.7 K/uL (0.1-1.3); Absolute Neutrophil 5.1 K/uL (1.8-8.0); Basophils % 0.4 % (0-1.3); Eosinophils % 0.7 % (0-4.4); Hematocrit 39.3 % (39.6-49.0); Hemoglobin 13.3 g/dL (13.6-17.9); Lymphocytes % 19.7 % (15.3-44.8); MCH 32.5 pg (27.0-35.0); MCHC 33.8 g/dL (32.0-36.0); MPV 9.3 fL (7.6-11.3); Monocytes % 9.6 % (3.3-12.3); Neutrophils % 69.6 % (41.7-73.7); Nucleated Red Blood Cells % 0.1 % (0-0); Platelets 126 thou/uL (152-406); RBC Red Blood Cell Count 4.09 M/uL (4.33-5.43); Red Cell Distribution Width 15.7 % (12.1-15.2)
[2024-10-04 11:39] LABS: PT Prothrombin Time 11.6 SECONDS (9.4-12.5); PTT, Activated Partial Thromb 31.1 SECONDS (24.3-36.9); Protime INR 1.04
[2024-10-04 11:50] LABS: Anion Gap 6.7 mEq/L (5.0-15.0); Potassium 4.7 mEq/L (3.5-5.1)
== END ==
LOC: OR 11:11
PROVIDERS: ATTEND Surgery
DX: L72.3 Sebaceous cyst (principal); Z53.09 Procedure and treatment not carried out because of other contraindication
CPT/HCPCS: 36415; 80048; 85025; 85610; 85730

== ENCOUNTER 2024-10-13 10:06 | Day surgery (SDC) | payer OTHER ==
[2024-10-13] MEDS: NA CHLORIDE 0.9% 1,000 ML ONE (10:45)
[2024-10-13] MEDS ORDERED: ONDANSETRON 4 MG/2 ML VIAL ONE (11:34)
[2024-10-13] MEDS ORDERED: LIDOCAINE 2% MPF 5 ML VIAL ONE (11:34)
[2024-10-13] MEDS ORDERED: FENTANYL CITR 100 MCG/2 ML ONE (11:34)
[2024-10-13] MEDS ORDERED: propofoL 200 MG/20 ML VIAL IV ONE (11:34)
[2024-10-13] MEDS ORDERED: dexAMETHasone 4 MG/ML VIAL ONE (12:02)
[2024-10-13] MEDS ORDERED: GLYCOPYRROLATE 0.2 MG/ML SYR ONE (12:02)
[2024-10-13] MEDS ORDERED: EPHEDRINE SULF 50 MG/ML VIAL ONE (12:03)
[2024-10-13] MEDS: CEFAZOLIN SODIUM 1 GM/VIAL ONE (12:18)
[2024-10-13] MEDS: LIDOCAINE HCL/EPINEPHRINE 20 ML MDV ONE (12:24)
--- NOTE | 2024-10-13 12:34 | P.OP ---
Preoperative diagnosis: RIGHT Perineal Cysts Postoperative diagnosis: RIGHT Perineal Cysts Primary procedure: Wide Local Excision of RIGHT Perineal Cysts Anesthesia: GETA + Local Estimated blood loss: <5cc Specimen: RIGHT Perineal Cysts Findings: ~ 3cm x 1cm ellipse with RIGHT Perineal Cysts Complications: None Transferred to: Recovery Room Condition: Good
--- NOTE | 2024-10-13 13:00 | OP ---
Date of Procedure: 10/13/2024 Surgeon: Israel Peacock MD, Preoperative Diagnosis: Right perineal cysts. Postoperative Diagnoses: Right perineal cysts. Procedure Performed: Wide local excision of right perineal cysts. Anesthesia: General endotracheal plus local with 1% lidocaine with epinephrine. Estimated Blood Loss: Less than 5 cc. Specimen: Right perineal cysts. Findings: Approximately 3 cm x 1 cm ellipse of skin with right perineal cysts. Complications: None. Disposition: The patient transferred to recovery room in good condition. Procedure In Detail: After informed consent was obtained, patient was brought to the operating room, prepped and draped in the usual sterile fashion. After adequate anesthesia was achieved, I made a l ocal incision down to subcutaneous tissues near the right perineum down to subcutaneous tissues ultim ately dissecting out approximately 2 perineal cysts and an ellipse of skin as described above. I dis sected these circumferentially out using the electrocautery and stayed just below the subcutaneous pl ane, ultimately sent this off for pathologic examination. The area was copiously irrigated and close d with interrupted 3-0 nylon sutures and a sterile dressing was placed over top. The patient tolerat ed the procedure without incident or complication and transferred to PACU in good condition. All counts were correct at the end of the ca se. TK/MODL Voice ID: [id number] Report ID: [id number]
[2024-10-13] MEDS: HYDROCODONE/APAP 7.5/325 MG TAB ONE (14:13)
[2024-10-15 02:11] VITALS: BP 133/83; TEMP 97.2; O2SAT 98
== END 2024-10-13 14:35 | disposition home or self-care (01) ==
LOC: OR 10:06
PROVIDERS: ATTEND Surgery
PROC: 0WBM0ZZ Excision of Male Perineum, Open Approach (ICD-10-PCS; principal; 2024-10-13 12:00)
DX: L72.0 Epidermal cyst (principal); I10 Essential (primary) hypertension; E78.00 Pure hypercholesterolemia, unspecified; I25.2 Old myocardial infarction
CPT/HCPCS: 82947; 88304; 88305; J0690; J1100; J2003; J2405; J2704; J3010; J7030

== ENCOUNTER 2024-12-03 07:29 | Day surgery (SDC) | payer OTHER ==
[2024-12-01 16:10] LABS: Absolute Eosinophils 0.1 K/uL (0-0.5); Absolute Lymphocytes (CBC) 1.9 K/uL (0.7-4.9); Absolute Monocytes 0.6 K/uL (0.1-1.3); Absolute Neutrophil 3.3 K/uL (1.8-8.0); Basophils % 0.3 % (0-1.3); Eosinophils % 0.9 % (0-4.4); Hematocrit 38.3 % (39.6-49.0); Hemoglobin 13.4 g/dL (13.6-17.9); Lymphocytes % 32.6 % (15.3-44.8); MCH 32.6 pg (27.0-35.0); MCV 93.2 fL (80-100); MPV 9.9 fL (7.6-11.3); Monocytes % 9.8 % (3.3-12.3); Neutrophils % 56.4 % (41.7-73.7); Nucleated Red Blood Cells % 0.1 % (0-0); Platelets 116 thou/uL (152-406); RBC Red Blood Cell Count 4.11 M/uL (4.33-5.43); Red Cell Distribution Width 15.6 % (12.1-15.2)
[2024-12-01 16:18] LABS: PT Prothrombin Time 10.6 SECONDS (10.0-13.0); PTT, Activated Partial Thromb 29.9 SECONDS (24.3-36.9); Protime INR 0.93
[2024-12-01 16:19] LABS: Anion Gap 8.7 mEq/L (5.0-15.0); Potassium 3.7 mEq/L (3.5-5.1)
[2024-12-03] MEDS ORDERED: propofoL 200 MG/20 ML VIAL IV ONE (09:17)
[2024-12-03] MEDS ORDERED: LIDOCAINE 1% MPF 30 ML VIAL ONE (09:17)
[2024-12-03] MEDS: NA CHLORIDE 0.9% 1,000 ML ONE (09:23)
[2024-12-03 10:57] VITALS: BP 126/73; TEMP 97; O2SAT 99
== END 2024-12-03 10:36 | disposition home or self-care (01) ==
LOC: OR 07:29
PROVIDERS: ATTEND Surgery
PROC: 0DBQ8ZX Excision of Anus, Via Natural or Artificial Opening Endoscopic, Diagnostic (ICD-10-PCS; principal; 2024-12-03 09:30)
DX: Z12.11 Encounter for screening for malignant neoplasm of colon (principal); N42.9 Disorder of prostate, unspecified; K57.30 Diverticulosis of large intestine without perforation or abscess without bleeding; K64.8 Other hemorrhoids
CPT/HCPCS: 85025; 80048; 36415; 85610; 82947; 88305; 85730; 45380; J2704; J2003; J7030

== ENCOUNTER 2025-06-15 13:05 | Observation (INO) | payer OTHER ==
--- NOTE | 2025-06-15 13:48 | RAD REPORT ---
EXAM: Chest Single View HISTORY: 69 years Male CHEST PAIN COMPARISON: 11/05/2023 FINDINGS: LUNGS/PLEURA: The lungs are clear. No pleural effusions or pneumothorax. No pulmonary edema. CARDIAC/MEDIASTINUM: The cardiac silhouette is within normal limits. Coronary artery stent. UPPER ABDOMEN: No significant abnormality. BONES: No acute abnormality. LINES/TUBES/OTHER: N/A IMPRESSION: No evidence of acute cardiopulmonary disease.
[2025-06-15 13:49] LABS: Absolute Lymphocytes (CBC) 0.5 K/uL (0.7-4.9); Hematocrit 38.6 % (39.6-49.0); Hemoglobin 13.3 g/dL (13.6-17.9); MCH 31.1 pg (27.0-35.0); MCHC 34.5 g/dL (32.0-36.0); MCV 90.2 fL (80-100); MPV 8.7 fL (7.6-11.3); Nucleated RBC Absolute Count 0.0 (0-0); Nucleated Red Blood Cells % 0.1 % (0-0); RBC Red Blood Cell Count 4.29 M/uL (4.33-5.43); White Blood Count 4.80 thou/uL (4.3-10.9)
[2025-06-15 13:55] LABS: PT Prothrombin Time 12.6 SECONDS (10-13.0)
[2025-06-15 13:56] LABS: Protime INR 1.12
[2025-06-15 14:09] LABS: ALT/SGPT 22.0 U/L (16-61); AST/SGOT 15.0 U/L (15-37); Albumin 3.1 g/dL (3.4-5.0); Albumin/Globulin Ratio 0.9 (1.1-1.8); Alkaline Phosphatase 76.0 U/L (45-117); Anion Gap 9.0 mEq/L (5.0-15.0); BUN Blood Urea Nitrogen 18.0 mg/dL (7-18); Bilirubin Indirect, Calculated 0.7 mg/dL (0.2-0.8); Globulin 3.4 g/dL (2.3-3.5); Glucose Level 202.0 mg/dL (74-106); Magnesium 1.7 mg/dL (1.6-2.4); NT PRO-BNP 107.0 pg/mL (<125); Potassium 4.0 mEq/L (3.5-5.1); Troponin High Sensitivity 11.7 pg/mL (<58.9)
[2025-06-15] MEDS ORDERED: NITROGLYCERIN 0.4 MG/TAB SL ONE (14:27)
[2025-06-15] MEDS ORDERED: MORPHINE 2 MG/ML SYR ONE (14:27)
--- NOTE | 2025-06-15 14:37 | ER ---
Nurse's Notes [facility] Name: Yousuf Braxton Age: 69 yrs Sex: Male : 1955 Arrival Date: 06/15/2025 Time: 13:05 Bed 8 Private MD: Diagnosis: Chest pain Presentation: 06/15 13:18 Chief complaint: Patient states: intermittent CP that radiates to his back for about a me1 week. Worse today with exertion. Associated SOB. Pain 7/10 "heavy". Coronavirus screen: Vaccine status: Patient reports receiving the 2nd dose of the covid vaccine. Ebola Screen: No symptoms or risks identified at this time. Initial Sepsis Screen: Does the patient meet any 2 criteria? HR > 90 bpm. Does the patient have a suspected source of infection? No. Patient's initial sepsis screen is negative. Risk Assessment: Do you want to hurt yourself or someone else? Patient reports no desire to harm self or others. Onset of symptoms is unknown. 13:18 Method Of Arrival: Wheelchair me1 13:18 Acuity: JORDY 2 me1 Historical: - Allergies: 13:20 Codeine; me1 - PMHx: 13:20 CAD; Diabetes - NIDDM; High Cholesterol; resolved (wt loss); Hypertension; resolved- wt me1 lose; Myocardial infarction; Pancreatitis; - PSHx: 13:20 Coronary Angioplasty; Repair of inguinal hernia; Repair of inguinal hernia; bilateral me1 ankle surgery; - Immunization history:: Adult Immunizations up to date. - Infectious Disease History:: Denies. - Social history:: Smoking status: Patient/guardian denies using tobacco, but has a distant history of tobacco abuse. Screenin:14 [facility] ED Fall Risk Assessment (Adult) History of falling in the last 3 months, db including since admission No falls in past 3 months (0 pts) Confusion or Disorientation No (0 pts) Intoxicated or Sedated No (0 pts) Impaired Gait No (0 pts) Mobility Assist Device Used No (0 pt) Altered Elimination No (0 pt) Score/Fall Risk Level 0 - 2 = Low Risk Oriented to surroundings, Maintained a safe environment. Abuse screen: Denies threats or abuse. Denies injuries from another. Nutritional screening: No deficits noted. Tuberculosis screening: No symptoms or risk factors identified. Assessment: 15:14 Reassessment: Patient appears in no apparent distress at this time. Patient and/or db family updated on plan of care and expected duration. Pain level reassessed. Patient is alert, oriented x 3, equal unlabored respirations, skin warm/dry/pink. General: Appears in no apparent distress. comfortable, Behavior is calm, cooperative. Neuro: Level of Consciousness is awake, alert, obeys commands, Oriented to person, place, time, situation. Cardiovascular: Reports chest pain. 16:00 Reassessment: Patient appears in no apparent distress at this time. Patient and/or db family updated on plan of care and expected duration. Pain level reassessed. Patient is alert, oriented x 3, equal unlabored respirations, skin warm/dry/pink. Vital Signs: 13:18 BP 121 / 76; Pulse 96; Resp 18; Temp 98.6; Pulse Ox 97% ; Weight 75.75 kg; Height 5 ft. me1 6 in. ; Pain 7/10; 14:30 BP 107 / 69; Pulse 90; Resp 15; Pulse Ox 94% ; db 15:00 BP 113 / 75; Pulse 79; Resp 16; Pulse Ox 98% on R/A; db 15:40 BP 107 / 70; Pulse 81; Resp 16; Pulse Ox 97% ; db 13:18 Body Mass Index 26.95 (75.75 kg, 167.64 cm) me1 13:18 Pain Scale: Adult me1 ED Course: 13:09 Patient arrived in ED. cj3 13:20 Triage completed. me1 13:20 Jamia Haque MD is Attending Physician. sp3 13:20 Arm band placed on Patient placed in an exam room. me1 13:21 Paul Li, MUMTAZ is Primary Nurse. bp 13:37 XRAY Chest (1 view) In Process Unspecified. EDMS 13:41 Initial lab(s) drawn, by me, sent to lab. EKG done, by ED staff, reviewed by Jamia Haque MD. Inserted saline lock: 22 gauge in right forearm, using aseptic technique. Blood collected. Flushed with 10 mL NS. 14:36 Prince Núñez MD is Hospitalizing Provider. sp3 16:00 Patient has correct armband on for positive identification. Bed in low position. Call db light in reach. Side rails up X 1. Provided Education on: ADMISSION. Client placed on continuous cardiac and pulse oximetry monitoring. NIBP monitoring applied. business process coordinator on. Pulse ox on. NIBP on. Pillow given. 16:00 No provider procedures requiring assistance completed. Patient admitted, IV remains in db place. Patient maintains SpO2 saturation greater than 95% on room air. Administered Medications: 14:15 Drug: morphine IVP or IV 2 mg IVP once over 4 mins Route: IVP; Infused Over: 4 mins; db Site: right antecubital; 16:00 Follow up: Response: No adverse reaction db 14:15 Drug: Nitroglycerin Sublingual 0.4 mg Sublingual once Route: Sublingual; db 16:00 Follow up: Response: No adverse reaction db 14:54 Drug: Aspirin PO Chewable Tablet 324 mg PO once; 81 mg tablets x 4 Route: PO; db 16:00 Follow up: Response: No adverse reaction db Medication: 16:00 VIS not applicable for this client. db Outcome: 14:36 Decision to Hospitalize by Provider. sp3 16:00 Admitted to Med/surg db 16:00 Condition: stable 16:00 Instructed on the need for admit, 16:09 Patient left the ED. rg5 Signatures: Dispatcher [employer] EDPaul Wills, RN RN bp Jamia Haque MD MD sp3 Lisa Dang, MUMTAZ RN db Umu Arnold RN RN me1 Edwin Parter RN RN rg5 Laura Evans 3
--- NOTE | 2025-06-15 14:37 | EDPHYS ---
Physician Documentation [facility] Name: Yousuf Braxton Age: 69 yrs Sex: Male : 1955 Arrival Date: 06/15/2025 Time: 13:05 Bed 8 Private MD: ED Physician Jamia Haque HPI: 06/15 13:46 This 69 yrs old Male presents to ER via Wheelchair with complaints of Chest Pain. sp3 13:46 69-year-old male with history of AR, multiple stents, hypertension, pancreatitis, sp3 diabetes, CAD patient of local cardiology group now presents to the ED with chest pain that started earlier today while he was at [facility]. Pain described as substernal and similar to his prior heart attacks. He denies any other other associated symptoms including shortness of breath, back pain, jaw pain, upper extremity pain, abdominal pain, vomiting, diarrhea, fever, prolonged immobilization, travel history, or any other signs or symptoms on ROS at this time.. Historical: - Allergies: 13:20 Codeine; me1 - PMHx: 13:20 CAD; Diabetes - NIDDM; High Cholesterol; resolved (wt loss); Hypertension; resolved- wt me1 lose; Myocardial infarction; Pancreatitis; - PSHx: 13:20 Coronary Angioplasty; Repair of inguinal hernia; Repair of inguinal hernia; bilateral me1 ankle surgery; - Immunization history:: Adult Immunizations up to date. - Infectious Disease History:: Denies. - Social history:: Smoking status: Patient/guardian denies using tobacco, but has a distant history of tobacco abuse. ROS: 13:46 Constitutional: Negative for fever, chills, and weight loss, Eyes: Negative for injury, sp3 pain, redness, and discharge, ENT: Negative for injury, pain, and discharge, Neck: Negative for injury, pain, and swelling, Respiratory: Negative for shortness of breath, cough, wheezing, and pleuritic chest pain, Abdomen/GI: Negative for abdominal pain, nausea, vomiting, diarrhea, and constipation, Back: Negative for injury and pain, MS/Extremity: Negative for injury and deformity, Skin: Negative for injury, rash, and discoloration, Neuro: Negative for headache, weakness, numbness, tingling, and seizure, Psych: Negative for depression, anxiety, suicide ideation, homicidal ideation, and hallucinations, Allergy/Immunology: Negative for hives, rash, and allergies, 13:46 All other systems are negative, Exam: 13:47 Constitutional: This is a well developed, well nourished patient who is awake, alert, sp3 and in no acute distress. Head/Face: Normocephalic, atraumatic. Eyes: Pupils equal round and reactive to light, extra-ocular motions intact. Lids and lashes normal. Conjunctiva and sclera are non-icteric and not injected. Cornea within normal limits. Periorbital areas with no swelling, redness, or edema. Neck: Trachea midline, no thyromegaly or masses palpated, and no cervical lymphadenopathy. Supple, full range of motion without nuchal rigidity, or vertebral point tenderness. No Meningismus. Chest/axilla: Normal chest wall appearance and motion. Nontender with no deformity. No lesions are appreciated. Cardiovascular: Regular rate and rhythm with a normal S1 and S2. No gallops, murmurs, or rubs. Normal PMI, no JVD. No pulse deficits. Respiratory: Lungs have equal breath sounds bilaterally, clear to auscultation and percussion. No rales, rhonchi or wheezes noted. No increased work of breathing, no retractions or nasal flaring. Abdomen/GI: Soft, non-tender, with normal bowel sounds. No distension or tympany. No guarding or rebound. No evidence of tenderness throughout. Back: No spinal tenderness. No costovertebral tenderness. Full range of motion. Skin: Warm, dry with normal turgor. Normal color with no rashes, no lesions, and no evidence of cellulitis. MS/ Extremity: Pulses equal, no cyanosis. Neurovascular intact. Full, normal range of motion. Neuro: Awake and alert, GCS 15, oriented to person, place, time, and situation. Cranial nerves II-XII grossly intact. Motor strength 5/5 in all extremities. Sensory grossly intact. Cerebellar exam normal. Normal gait. Psych: Awake, alert, with orientation to person, place and time. Behavior, mood, and affect are within normal limits. 13:47 ECG was reviewed by the Attending Physician. EKG demonstrates normal sinus rhythm at 94 bpm with right bundle branch block leftward axis and nonspecific diffuse ST/T changes without evidence of acute ischemia. Vital Signs: 13:18 BP 121 / 76; Pulse 96; Resp 18; Temp 98.6; Pulse Ox 97% ; Weight 75.75 kg; Height 5 ft. me1 6 in. ; Pain 7/10; 14:30 BP 107 / 69; Pulse 90; Resp 15; Pulse Ox 94% ; db 15:00 BP 113 / 75; Pulse 79; Resp 16; Pulse Ox 98% on R/A; db 15:40 BP 107 / 70; Pulse 81; Resp 16; Pulse Ox 97% ; db 13:18 Body Mass Index 26.95 (75.75 kg, 167.64 cm) me1 13:18 Pain Scale: Adult me1 MDM: 13:20 Medical Screening Exam initiated sp3 13:47 Data reviewed: vital signs, nurses notes, lab test result(s), EKG, radiologic studies. sp3 ED course: 69-year-old male with PMH above and extensive cardiac history who presents with recurrent substernal chest pain. Differential diagnosis includes angina versus unstable angina versus acute coronary syndrome versus musculoskeletal versus other mediastinal or thoracic process. I am not highly suspicious of pneumonia, bronchitis, sepsis, shock or any other critical process including vascular dissection and/or aneurysm. Workup will include chest x-ray, EKG, general labs including troponin. We will likely place patient in observation 23 hours and consult cardiology for further workup if indicated.. 06/15 13:21 Order name: Basic Metabolic Panel; Complete Time: 14:11 [facility] 06/15 13:21 Order name: CBC with Diff; Complete Time: 14:11 [facility] 06/15 13:21 Order name: LFT's; Complete Time: 14:11 [facility] 06/15 13:21 Order name: Magnesium; Complete Time: 14:11 [facility] 06/15 13:21 Order name: NT PRO-BNP; Complete Time: 14:11 [facility] 06/15 13:21 Order name: PT-INR; Complete Time: 14:11 [facility] 06/15 13:21 Order name: Troponin HS; Complete Time: 14:11 [facility] 06/15 15:05 Order name: Lipid Profile [facility] 06/15 15:05 Order name: Lipid Profile [facility] 06/15 15:05 Order name: Troponin High Sensitivity [facility] 06/15 15:05 Order name: Troponin High Sensitivity [facility] 06/15 15:05 Order name: Troponin High Sensitivity [facility] 06/15 15:05 Order name: Troponin High Sensitivity [facility] 06/15 15:05 Order name: Troponin High Sensitivity [facility] 06/15 15:15 Order name: Hemoglobin A1c [facility] 06/15 13:21 Order name: XRAY Chest (1 view); Complete Time: 13:50 sp3 06/15 15:25 Order name: Echo with Doppler [facility] 06/15 13:21 Order name: EKG; Complete Time: 13:21 sp3 06/15 13:21 Order name: Cardiac monitoring; Complete Time: 13:23 sp3 06/15 13:21 Order name: EKG - Nurse/Tech; Complete Time: 13:23 sp3 06/15 13:21 Order name: IV Saline Lock; Complete Time: 13:40 sp3 06/15 13:21 Order name: Labs collected and sent; Complete Time: 13:40 sp3 06/15 13:21 Order name: O2 Per Protocol; Complete Time: 13:23 sp3 06/15 13:21 Order name: O2 Sat Monitoring; Complete Time: 13:23 sp3 Administered Medications: 14:15 Drug: morphine IVP or IV 2 mg IVP once over 4 mins Route: IVP; Infused Over: 4 mins; db Site: right antecubital; 16:00 Follow up: Response: No adverse reaction db 14:15 Drug: Nitroglycerin Sublingual 0.4 mg Sublingual once Route: Sublingual; db 16:00 Follow up: Response: No adverse reaction db 14:54 Drug: Aspirin PO Chewable Tablet 324 mg PO once; 81 mg tablets x 4 Route: PO; db 16:00 Follow up: Response: No adverse reaction db Disposition Summary: 06/15/25 14:36 Hospitalization Ordered Notes: Hospitalization Status: Observation sp3 Provider: Prince Wilton sp3 Location: Telemetry/MedSurg (observation) sp3 Condition: Stable sp3 Problem: an acute exacerbation sp3 Symptoms: have worsened sp3 Bed/Room Type: Standard 3 Room Assignment: 404(06/15/25 15:07) bc6 Diagnosis - Chest pain sp3 Forms: - Medication Reconciliation Form sp3 - SBAR form sp3 - Leadership Thank You Letter sp3 Signatures: Dispatcher [employer] Jamia Mares MD MD sp3 Lisa Dang RN RN db Barb Romero bc6 Umu Arnold, RN RN me1 Corrections: (The following items were deleted from the chart) 15: 14:36 sp3 bc6 15:25 15:05 Echo with Doppler ordered. EDMS EDMS
[2025-06-15] MEDS ORDERED: ASPIRIN 81 MG CHEWABLE TABLET ONE (14:50)
[2025-06-15] MEDS ORDERED: NITROGLYCERIN 0.4 MG/TAB SL PRN (15:00)
--- NOTE | 2025-06-15 15:11 | P.HP ---
Certification for Inpatient Patient admitted to: Observation With expected LOS: <2 Midnights Practitioner: I am a practitioner with admitting privileges, knowledge of patient current condition, hospital course, and medical plan of care. Services: Services provided to patient in accordance with Admission requirements found in Title 42 Section 412.3 of the Code of Federal Regulations Patient History Date of Service: 06/15/25 Reason for admission: Chest pain History of Present Illness: Patient is a 69-year-old male with known past medical history of obesity, type 2 diabetes mellitus and coronary disease status post PCI. He said at least 4 stents last one placed 4 years ago. He presented to the ER complaining of chest pain. Patient has been experiencing chest pain intermittently for the past week. [facility] when his symptoms started. He states that he was standing in line for roughly 2 hours. As he was ambulating back to his car he developed a substernal chest pain radiating to his back. Patient was having shortness of breath and nausea as well. He denies lower extremity weakness or orthopnea. He has not had any recent cardiac workup. His antianginal regimen include Ranexa 1000 mg twice daily. He is also on Lantus 20 units in the morning, Ozempic and glipizide 10 mg twice daily. He arrived in the ER with borderline blood pressure. His EKG showed incomplete right bundle branch block without signs of acute ST changes. First troponin is negative. Allergies codeine [Codeine] Allergy (Intermediate, Verified 12/01/24 14:28) Hives/Rash Home Medications: ALPRAZolam [Alprazolam] 2 mg PO BID 05/19/20 Hydrocodone/Acetaminophen [Hydrocodone-Acetamin 10-325 mg] 1 tab PO 5XD PRN 05/19/20 Atorvastatin Calcium [Lipitor] 80 mg PO BEDTIME #30 tab 01/02/21 Ticagrelor [Brilinta*] 90 mg PO BID 06/25/23 Semaglutide [Ozempic] 0.5 mg SQ EVERY 7TH DAY 10/04/24 Insulin Glargine,Hum.rec.anlog [Lantus] 20 unit SQ DAILY 12/01/24 Ranolazine [Ranolazine ER] 1,000 mg PO BID 12/01/24 glipiZIDE [Glipizide] 10 mg PO BID 12/01/24 - Past Medical/Surgical History Diabetic: Yes -: CAD -: Diabetes -: HTN -: NH -: Pancreatitis -: HLD -: Angioplasty -: Heart stent x3 -: R ankle sx Psychosocial/ Personal History: Patient lives at home alone. - Family History Father Notes: parkinsons, dementia Mother -: Lung disease - Social History Alcohol use: Yes CD- Drugs: No Caffeine use: Yes Physical Examination - Physical Exam General: Cooperative, Acute distress, Obese HEENT: Atraumatic, Normocephalic Respiratory: Clear to auscultation bilaterally, Normal air movement Cardiovascular: No edema, Normal pulses, Regular rate/rhythm, Normal S1 S2 Neurological: Normal speech - Studies Laboratory Data (last 24 hrs) 06/15/25 06/15/25 06/15/25 13:40 13:40 13:40 WBC 4.80 Hgb 13.3 L Hct 38.6 L Plt Count 102 L PT 12.6 INR 1.12 Sodium 134 L Potassium 4.0 BUN 18 Creatinine 1.26 Glucose 202 H Magnesium 1.7 Total Bilirubin 0.9 AST 15 ALT 22 Alkaline Phosphatase 76 Assessment and Plan - Plan Assessment 69-year-old male with extensive cardiovascular history including PCI to LAD stent placed 4 years ago. He presents with intermittent chest pain ongoing for the past week but worsened today. His first troponin is negative, EKG without evidence of acute ischemia. Patient has borderline blood pressure with SBP in the low 100s. He is being admitted for ACS workup. Patient is known to Dr. Doc gallagher. Chest painACS rule out Coronary disease status post PCI Type 2 diabetes mellitus Hyperlipidemia Obesity Thrombocytopenia Plan: Will admit under observation with telemetry Trend troponin Will obtain a 2D echo Continue scheduled aspirin and atorvastatin Patient's antianginal regimen will need to be optimized to include beta-blockers and additional antiplatelet Resume home dose of Ranexa Cardiology consulted - Advance Directives Does patient have a Living Will: No Does patient have a Durable POA for Healthcare: No
[2025-06-15 16:30] VITALS: BMI 27.1
[2025-06-15 17:27] LABS: HDL Cholesterol 55.0 mg/dL (40-60); LDL Cholesterol, Calculated 100.0 mg/dL (<130); LDL Cholesterol,Calc NonReport 100.0; Troponin High Sensitivity 12.2 pg/mL (<58.9)
[2025-06-15] MEDS: MORPHINE 2 MG/ML SYR IV PRN (18:00)
[2025-06-15] MEDS: GABAPENTIN 400 MG CAP PO SCH (20:28)
[2025-06-15] MEDS: TICAGRELOR 90 MG TABLET PO SCH (20:28)
[2025-06-15] MEDS: ALPRAZOLAM 1 MG TABLET PO SCH (20:28)
[2025-06-15] MEDS: ATORVASTATIN 40 MG TAB PO SCH (21:00)
[2025-06-16] MEDS: HYDROCODONE/APAP 10/325 TAB PO PRN ×2 (05:24→11:13)
--- NOTE | 2025-06-16 07:52 | P.CNS ---
Date of Consult: 06/16/25 Chief Complaint: Chest pain History of Present Illness: Patient with PMH of CAD, multiple stents placement in the past, DM, presented with angina for the last week, got worse yesterday, report pressure sensation in his mid chest, can happen at rest or exertion, he denies palpitations, no syncope, no breathing problems. Allergies codeine [Codeine] Allergy (Intermediate, Verified 06/15/25 16:07) Hives/Rash Home medications list reviewed: Yes Home Medications: ALPRAZolam [Alprazolam] 2 mg PO BID 05/19/20 Hydrocodone/Acetaminophen [Hydrocodone-Acetamin 10-325 mg] 1 tab PO 5XD PRN 05/19/20 Ticagrelor [Brilinta*] 90 mg PO BID 06/25/23 Semaglutide [Ozempic] 1 mg SQ EVERY 7TH DAY 10/04/24 Insulin Glargine,Hum.rec.anlog [Lantus] 20 unit SQ DAILY 12/01/24 Ranolazine [Ranolazine ER] 1,000 mg PO BID 12/01/24 glipiZIDE [Glipizide] 10 mg PO BID 12/01/24 Gabapentin 2 tab PO BID 06/15/25 - Past Medical/Surgical History Diabetic: Yes -: CAD -: Diabetes -: HTN -: [place] -: Pancreatitis -: HLD -: Angioplastyx2 -: Heart stent x10 -: R ankle sx -: inguinal hernia repair Psychosocial/ Personal History: Patient lives at home alone. - Family History Father Medical History: Other (see notes) Notes: parkinsons, dementia Mother Medical History: Lung disease - Social History Smoking Status: Former smoker Alcohol use: Yes CD- Drugs: No Caffeine use: Yes Place of Residence: Home Review of Systems 10-point ROS is otherwise unremarkable Physical Examination Temp Pulse Resp BP Pulse Ox 98 F 90 18 104/55 L 98 06/16/25 04:00 06/16/25 04:00 06/16/25 04:00 06/16/25 04:00 06/16/25 04:00 General: Alert, In no apparent distress HEENT: Atraumatic, PERRLA, Mucous membr. moist/pink, EOMI, Sclerae nonicteric Neck: Supple, 2+ carotid pulse no bruit, No LAD, Without JVD or thyroid abnormality Respiratory: Clear to auscultation bilaterally, Normal air movement Cardiovascular: Regular rate/rhythm, Normal S1 S2 Gastrointestinal: Normal bowel sounds, No tenderness Musculoskeletal: No tenderness Integumentary: No rashes Neurological: Normal gait, Normal speech, Normal tone, Normal affect Lymphatics: No axilla or inguinal lymphadenopathy Laboratory Data (last 24 hrs) 06/15/25 06/15/25 06/15/25 13:40 13:40 13:40 WBC 4.80 Hgb 13.3 L Hct 38.6 L Plt Count 102 L PT 12.6 INR 1.12 Sodium 134 L Potassium 4.0 BUN 18 Creatinine 1.26 Glucose 202 H Magnesium 1.7 Total Bilirubin 0.9 AST 15 ALT 22 Alkaline Phosphatase 76 - Problems (1) Unstable angina Current Visit: Yes Status: Acute Plan: Patient with multiple stents placement in the past, presented with typical angina NPO for coronary angiogram continue ASA 81 mg daily continue Brilinta 90 mg po BID Continue Ranexa 1000 mg po BID Continue to monitor on tele (2) Type 2 diabetes mellitus Current Visit: No Status: Acute Plan: Tight glycemic control is advised.
[2025-06-16] MEDS ORDERED: FENTANYL CITR 100 MCG/2 ML ONE (07:57)
[2025-06-16] MEDS ORDERED: MIDAZOLAM HCL 2 MG/2 ML INJ ONE (07:58)
[2025-06-16] MEDS: glipiZIDE 5 MG TAB PO SCH (08:00)
[2025-06-16] MEDS ORDERED: NA CHLORIDE 0.9% 500 ML ONE (08:01)
[2025-06-16] MEDS: INSULIN GLARGINE 100 UNIT/ML SQ SCH (08:11)
[2025-06-16] MEDS: ASPIRIN EC 81 MG TAB PO SCH (08:11)
[2025-06-16 08:12] VITALS: TEMP 98.1
[2025-06-16] MEDS ORDERED: HEPA 1000U/500MLS 2,000 UNIT/1,000 ML BAG IV ONE (08:15)
[2025-06-16] MEDS ORDERED: ATROPINE SULF 1 MG/10 ML SYR IV ONE (08:17)
[2025-06-16] MEDS ORDERED: LIDOCAINE 1% 20 ML MDV ONE (08:17)
[2025-06-16] MEDS ORDERED: HEPARIN 10,000 UNIT/10 ML VIAL IV ONE (08:17)
[2025-06-16] MEDS ORDERED: HEPARIN 5000 UNIT/ML 1 ML VIAL ONE (08:18)
[2025-06-16] MEDS ORDERED: TICAGRELOR 90 MG TABLET PO ONE (08:18)
[2025-06-16] MEDS ORDERED: CLOPIDOGREL 75 MG TABLET ONE (08:18)
[2025-06-16] MEDS ORDERED: ASPIRIN 325 MG TAB ONE (08:18)
[2025-06-16] MEDS ORDERED: Phenylephrine HCl 10 MG/ML 1 ML VIAL ONE (08:58)
[2025-06-16 09:05] LABS: Anion Gap 9.2 mEq/L (5.0-15.0); BUN Blood Urea Nitrogen 18.0 mg/dL (7-18); Glucose Level 174.0 mg/dL (74-106); Potassium 4.2 mEq/L (3.5-5.1)
--- NOTE | 2025-06-16 11:35 | P.DS ---
Admission Date: 06/15/25 Discharge Date: 06/16/25 Disposition: ROUTINE DISCHARGE Discharge Condition: GOOD Reason for Admission: Chest pain Brief History of Present Illness: Patient is a 69-year-old male with known past medical history of obesity, type 2 diabetes mellitus and coronary disease status post PCI. He said at least 4 stents last one placed 4 years ago. He presented to the ER complaining of chest pain. Patient has been experiencing chest pain intermittently for the past week. He was standing in line at the local [employer] earlier today when his symptoms started. He states that he was standing in line for roughly 2 hours. As he was ambulating back to his car he developed a substernal chest pain radiating to his back. Patient was having shortness of breath and nausea as well. He denies lower extremity weakness or orthopnea. He has not had any recent cardiac workup. His antianginal regimen include Ranexa 1000 mg twice daily. He is also on Lantus 20 units in the morning, Ozempic and glipizide 10 mg twice daily. He arrived in the ER with borderline blood pressure. His EKG showed incomplete right bundle branch block without signs of acute ST changes. First troponin is negative. Hospital Course: Patient underwent coronary angiogram today with cardiology. No PCI. He tolerated the procedure well. His hospital course has been otherwise unremarkable. He is medically cleared for discharge. Vital Signs/Physical Exam: Temp Pulse Resp BP Pulse Ox 98.1 F 63 16 150/55 H 98 06/16/25 08:00 06/16/25 10:20 06/16/25 11:13 06/16/25 10:20 06/16/25 11:13 General: Alert, In no apparent distress, Cooperative HEENT: Atraumatic, Normocephalic Respiratory: Other (Breathing is not labored) Cardiovascular: No edema, Regular rate/rhythm, Normal S1 S2 Neurological: Normal speech Laboratory Data at Discharge: WBC 4.80 thou/uL (4.3-10.9) 06/15/25 13:40 Hgb 13.3 g/dL (13.6-17.9) L 06/15/25 13:40 Hct 38.6 % (39.6-49.0) L 06/15/25 13:40 Plt Count 102 thou/uL (152-406) L 06/15/25 13:40 PT 12.6 SECONDS (10-13.0) 06/15/25 13:40 INR 1.12 06/15/25 13:40 Sodium 136 mEq/L (136-145) 06/16/25 06:07 Potassium 4.2 mEq/L (3.5-5.1) 06/16/25 06:07 BUN 18 mg/dL (7-18) 06/16/25 06:07 Creatinine 1.10 mg/dL (0.70-1.30) 06/16/25 06:07 Glucose 174 mg/dL (74-106) H 06/16/25 06:07 Magnesium 1.7 mg/dL (1.6-2.4) 06/15/25 13:40 Total Bilirubin 0.9 mg/dL (0.2-1.0) 06/15/25 13:40 AST 15 U/L (15-37) 06/15/25 13:40 ALT 22 U/L (16-61) 06/15/25 13:40 Alkaline Phosphatase 76 U/L (45-117) 06/15/25 13:40 Triglycerides 98 mg/dL (<150) 06/15/25 16:45 Cholesterol 175 mg/dL (<200) 06/15/25 16:45 HDL Cholesterol 55 mg/dL (40-60) 06/15/25 16:45 Cholesterol/HDL Ratio 3.18 06/15/25 16:45 Home Medications: ALPRAZolam [Alprazolam] 2 mg PO BID 05/19/20 Hydrocodone/Acetaminophen [Hydrocodone-Acetamin 10-325 mg] 1 tab PO 5XD PRN 05/19/20 Ticagrelor [Brilinta*] 90 mg PO BID 06/25/23 Semaglutide [Ozempic] 1 mg SQ EVERY 7TH DAY 10/04/24 Insulin Glargine,Hum.rec.anlog [Lantus] 20 unit SQ DAILY 12/01/24 Ranolazine [Ranolazine ER] 1,000 mg PO BID 12/01/24 glipiZIDE [Glipizide] 10 mg PO BID 12/01/24 Gabapentin 2 tab PO BID 06/15/25 Aspirin [Aspirin EC 81 MG] 81 mg PO DAILY #30 tab 06/16/25 Atorvastatin Calcium [Lipitor] 40 mg PO BEDTIME #30 tab 06/16/25 New Medications: Aspirin [Aspirin EC 81 MG] 81 mg PO DAILY #30 tab Atorvastatin Calcium [Lipitor] 40 mg PO BEDTIME #30 tab Followup: NONE,NONE [Primary Care Provider] - Bryon Ordonez MD [ACTIVE - CAN ADMIT] - 1-2 Weeks (Routine follow-up with cardiology)
[2025-06-16 12:10] VITALS: BP 113/61; O2SAT 98
--- NOTE | 2025-06-16 15:04 | OP ---
Date of Procedure: 06/16/2025 Surgeon: Bryon Ordonez Procedure Performed: Selective coronary angiogram. Indication For Procedure: Unstable angina with history of CAD. Complications: None. Estimated Blood Loss: Less than 50 cc. Access: Right radial, closed by TR band. Sedation Time: 20 minutes with 1 of Versed and 25 of fentanyl. Description Of Procedure: After risks, and benefits, and alternatives were explained to the patient, patient agreed to proceed with procedure and signed informed consent. The patient was brought back to the phlebotomist lab assistant, prepped and draped in sterile fashion. Time-out was performed. Sedation was admini stered. Next, right radial access was obtained using ultrasound-guided micropuncture technique. Tig er 4.0 catheter was advanced over a J-wire to the aortic root. Selective angiogram was done using e same catheter. After the procedure, catheter was removed over a J-wire. Sheath was removed. TR b and was applied. Hemostasis was achieved and the patient was moved back to recovery in stable condi tion. Findings: 1. Left main; ostial 30% to 40% disease, then mild luminal irregularities. 2. LAD; diffuse atherosclerosis in that artery with proximal to mid diffuse 30% to 40% disease, then distal mild 30% disease, then mild luminal irregularities. 3. Left circ with ostial 50% to 60% disease with a small artery and gives an early large OM. That OM got a mid stent that is patent, most likely 2 layers of stent, then distal mild luminal irregulariti es. 4. RCA. There is an ostial to proximal 2 mid stent that is patent, then mid to distal RCA diffuse di sease 20% to 30%, small artery. Assessment: Mild to moderate nonobstructive CAD with patent stents. Plan is to continue aggressive medical management. LOPEZ/MODL Voice ID: [id number] Report ID: [id number]
== END 2025-06-16 11:45 | disposition home or self-care (01) ==
LOC: ER 13:05 → 4TH 15:00
PROVIDERS: ADMIT Internal Medicine; ATTEND Internal Medicine
PROC: B2111ZZ Fluoroscopy of Multiple Coronary Arteries using Low Osmolar Contrast (ICD-10-PCS; principal; 2025-06-16)
DX: I25.110 Atherosclerotic heart disease of native coronary artery with unstable angina pectoris (principal); Z95.5 Presence of coronary angioplasty implant and graft; I10 Essential (primary) hypertension; E11.9 Type 2 diabetes mellitus without complications; I45.19 Other right bundle-branch block; E78.5 Hyperlipidemia, unspecified; D69.6 Thrombocytopenia, unspecified; I25.2 Old myocardial infarction; G20.A1 Parkinson's disease without dyskinesia, without mention of fluctuations; F02.80 Dementia in other diseases classified elsewhere, unspecified severity, without behavioral disturbance, psychotic disturbance, mood disturbance, and anxiety; E66.9 Obesity, unspecified; Z87.891 Personal history of nicotine dependence; Z88.5 Allergy status to narcotic agent
CPT/HCPCS: 93005; 93306; 85025; 80048 ×2; 36415 ×2; 83735; 85610; 80061; 82947 ×4; 85379; 80076; 83036; 84484 ×3; 83880; 71045; 93454; 76937; 96374; 99285; C1893; Q9966; J1644 ×2; J2003; J2250; J3010; J2270 ×2; J7040; G0378 ×3; 99152; 99153; J0461; J2371